=== PATIENT | female | born 1970 | race Native Hawaiian/Other Pacific Islander ===

== ENCOUNTER → 2020-08-24 11:40 | Outpatient (BNVA) | payer OTHER, SELFPAY | PROVIDERS: PCP Internal Medicine; Visit Provider Physician Assistant Medical | DX: S63.653A Sprain of metacarpophalangeal joint of left middle finger, initial encounter (principal); S63.655A Sprain of metacarpophalangeal joint of left ring finger, initial encounter; X50.1XXA Overexertion from prolonged static or awkward postures, initial encounter | CPT/HCPCS: 73130; 99202 ==

== ENCOUNTER → 2020-08-31 08:15 | Outpatient (BNVA) | payer OTHER, SELFPAY | PROVIDERS: PCP Internal Medicine; Visit Provider Internal Medicine | DX: S63.653A Sprain of metacarpophalangeal joint of left middle finger, initial encounter (principal); S63.655A Sprain of metacarpophalangeal joint of left ring finger, initial encounter; X58.XXXA Exposure to other specified factors, initial encounter | CPT/HCPCS: 99214 ==

== ENCOUNTER → 2020-09-07 09:46 | Outpatient (BNVA) | payer OTHER, SELFPAY | PROVIDERS: PCP Internal Medicine; Visit Provider Internal Medicine | DX: S63.653A Sprain of metacarpophalangeal joint of left middle finger, initial encounter (principal); S63.655A Sprain of metacarpophalangeal joint of left ring finger, initial encounter; X58.XXXA Exposure to other specified factors, initial encounter | CPT/HCPCS: 99213 ==

== ENCOUNTER 2020-09-20 14:57 | Outpatient (REF) | payer OTHER, SELFPAY ==
[2020-09-20 16:27] LABS: MANUAL DIFF FLAG NO
[2020-09-20 16:42] LABS: Basophils Percent Auto 0.3 % (0-2); Eosinophils Absolute Auto 0.2 X10*3/uL (0.0-0.4); Eosinophils Percent Auto 1.9 % (0-4); Hematocrit 22.7 % (37-47); Imm Gran Abs Auto 0.06 X10*3/uL (0.00-0.03); Imm Gran Pct Auto 0.5 % (0.0-0.4); Lymphocytes Absolute Auto 3.5 X10*3/uL (1.2-4.9); Lymphocytes Percent Auto 28.6 % (20-40); Mean Corpuscular HGB Conc 30.4 g/dl (31.0-35.0); Mean Corpuscular Hemoglobin 26.1 pg (27.0-33.0); Monocytes Absolute Auto 0.8 X10*3/uL (0.1-1.2); Monocytes Percent Auto 6.6 % (2-11); Neutrophils Absolute Auto 7.6 X10*3/uL (2.0-8.3); Neutrophils Percent Auto 62.1 % (45-73); Platelet Count 383 X10*3/uL (160-400); Red Blood Count 2.64 X10*6/uL (4.20-5.50); Red Cell Distribution Width 14.8 % (11.0-16.0)
[2020-09-20 16:45] LABS: White Blood Count 12.2 X10*3/uL (4.8-10.8)
[2020-09-21 08:47] LABS: Hemoglobin 6.9 g/dl (12.0-16.0)
== END 2020-09-20 14:58 | disposition home or self-care (01) ==
LOC: HO.HMGCLDS 14:57
PROVIDERS: PCP Internal Medicine; Visit Provider Internal Medicine
DX: N92.0 Excessive and frequent menstruation with regular cycle (principal)
CPT/HCPCS: 36415; 85025

== ENCOUNTER 2020-09-20 17:21 | Emergency (ER) | payer OTHER, SELFPAY ==
[2020-09-20] VITALS (10 sets, daily range): BP systolic 99–142; BP diastolic 64–91; PULSE 80–105; RESP 16–18; TEMP 36.8–37.1; O2SAT 98–100; BMI 29.9
--- NOTE | 2020-09-20 20:05 | ED.RECABL ---
HPI - Recheck/Abnormal Lab/Rx General Chief Complaint: Recheck/Abnormal Lab/Rx <Kaila Love NP - Last Filed: 09/20/20 21:19> Stated Complaint: Abnormal labs <Kaila Love NP - Last Filed: 09/20/20 21:19> Time Seen by Provider: 09/20/20 19:31 <Kaila Love NP - Last Filed: 09/20/20 21:19> Source: patient <Kaila Love NP - Last Filed: 09/20/20 21:19> Mode of arrival: ambulatory <Kaila Love NP - Last Filed: 09/20/20 21:19> Limitations: no limitations <Kaila Love NP - Last Filed: 09/20/20 21:19> History of Present Illness HPI narrative: 50-year-old female with a past medical history of GERD, migraines, anxiety, asthma here with vaginal bleeding. The patient tells me that she has had vaginal bleeding for 5 weeks. She is changing her pads every 1-2 hours and has heavy bleeding with clots at times. No abdominal pain. She is not sexually active. She was having normal menses still february of this year and then since then has had irregular bleeding. She is not on any OCPs. She has no history of heavy bleeding. Her last Pap smear was >5 years ago and patient believes it was normal. she denies any abdominal pain, vomiting, urinary symptoms. She is complaining of feeling weak and dizzy. She had outpatient labs done by her primary care doctor this morning and was called and told to go to the emergency department for hemoglobin of 6.9. <Kaila Love NP - Last Filed: 09/20/20 21:19> MD complaint: abnormal lab <Kaila Love NP - Last Filed: 09/20/20 21:19> Returns today for: called because of abnormal lab/test <Kaila Love NP - Last Filed: 09/20/20 21:19> Symptoms since prior visit: no new symptoms <Kaila Love NP - Last Filed: 09/20/20 21:19> Context: called for abnormal lab result <Kaila Love NP - Last Filed: 09/20/20 21:19> Associated symptoms: other (weakness, dizziness ) <Kaila Love NP - Last Filed: 09/20/20 21:19> Related Data Home Medications: Home Medications Medication Instructions Recorded Confirmed sumatriptan succinate 50 mg tablet mg PO 08/10/20 08/10/20 Previous Rx's Medication Instructions Recorded topiramate 50 mg tablet 50 mg PO DAILY #30 tab 07/26/20 albuterol sulfate 90 mcg/actuation 2 inh INHALATION Q4-6H PRN 30 Days 08/11/20 aerosol inhaler #18 g budesonide-formoterol HFA 160 2 puff PO BID 30 Days #1 units 08/11/20 mcg-4.5 mcg/actuation aerosol inhaler omeprazole 20 mg capsule,delayed 20 mg PO DAILY 90 Days #90 cap 08/11/20 release fluoxetine 10 mg capsule 10 mg PO DAILY 90 Days #90 cap 08/17/20 ondansetron HCl 8 mg tablet 8 mg PO ONCE PRN 30 Days #30 tab 08/17/20 fluticasone propionate 50 1 spray INTRANASAL BID 30 Days 08/23/20 mcg/actuation nasal #15.8 ml spray,suspension ipratropium 0.5 mg-albuterol 3 mg 3 ml INHALATION Q6-8H PRN 30 Days 08/23/20 (2.5 mg base)/3 mL nebulization #90 ml soln tranexamic acid [Lysteda] 1,300 mg PO TID PRN #30 tab 09/21/20 <Kaila Love NP - Last Filed: 09/20/20 21:19> Allergies/Adverse Reactions: Allergies Allergy/AdvReac Type Severity Reaction Status Date / Time seafood Allergy Unknown hives, Verified 09/21/20 01:37 throat feels like it is closing ibuprofen [IBUPROFEN] AdvReac Unknown HEARTBURN Verified 09/21/20 01:37 <Kaila Love NP - Last Filed: 09/20/20 21:19> Review of Systems Review of Systems: Yes all other systems are reviewed and are negative <Kaila Love NP - Last Filed: 09/20/20 21:19> Constitutional: Constitutional: Reports no additional constitutional complaints, Denies body ache(s), Denies chills, Denies fever(s), Denies headache(s) and Reports weakness <Kaila Love NP - Last Filed: 09/20/20 21:19> Eyes: Eyes: Reports no additional eye complaints and Denies change in vision <Kaila Love BUTCHER HEAD - Last Filed: 09/20/20 21:19> ENT: Reports system reviewed and no additional complaints, except as documented, Reports dizziness, Denies headache(s), Denies nasal congestion, Denies nasal discharge and Denies neck pain <Kaila Love [employer] HEAD - Last Filed: 09/20/20 21:19> Cardiovascular: Cardiovascular: Reports no additional cardiovascular complaints, Denies chest pain, Denies leg edema and Denies dyspnea <Kaila Love [employer]CH[employer] HEAD - Last Filed: 09/20/20 21:19> Respiratory: Respiratory: Reports no additional respiratory complaints, Denies cough and Denies dyspnea <Kaila Love [employer] HEAD - Last Filed: 09/20/20 21:19> Gastrointestinal: Gastrointestinal: Reports no additional gastrointestinal complaints, Denies abdominal pain, Denies diarrhea, Denies nausea and Denies vomiting <Kaila Love [employer]CHER HEAD - Last Filed: 09/20/20 21:19> Genitourinary: Genitourinary: Reports no additional female genitourinary complaints, Reports abnormal vaginal bleeding and Denies urinary incontinence <Kaila Love BUTCHER HEAD - Last Filed: 09/20/20 21:19> Musculoskeletal: Musculoskeletal: Reports no additional musculoskeletal complaints, Denies back pain, Denies arthralgias, Denies joint swelling, Denies neck pain, Denies numbness and Denies tingling <Kaila Love BUTCHER HEAD - Last Filed: 09/20/20 21:19> Integumentary/Breasts: Skin/Breast: Reports system reviewed and no additional complaints, except as docu and Denies rash <Kaila Love BUTCHER HEAD - Last Filed: 09/20/20 21:19> Neurologic: Reports system reviewed and no additional complaints, except as documented, Denies Abnormal speech present, Reports dizziness, Denies headache(s), Denies numbness, Denies tingling and Reports weakness <Kaila Love NP - Last Filed: 09/20/20 21:19> [facility] Past Medical History Attestation statement: The following information was validated with the patient. <Kaila Love NP - Last Filed: 09/20/20 21:19> Source: old records reviewed and nursing notes reviewed <Kaila Love NP - Last Filed: 09/20/20 21:19> Medical History: Medical History Anxiety, generalized Asthma Chronic GERD Heavy menses Migraine headache <Kaila Love NP - Last Filed: 09/20/20 21:19> Surgical History: Surgical History No pertinent past surgical history <Kaila Love NP - Last Filed: 09/20/20 21:19> Family History Family History: Family History Father No problems noted. Mother Arthritis Asthma Diabetes mellitus HTN (hypertension) Son No problems noted. Sister No problems noted. Sister No problems noted. Sister No problems noted. Brother No problems noted. Brother No problems noted. Brother No problems noted. Brother No problems noted. <Kaila Love NP - Last Filed: 09/20/20 21:19> Social History Social History: Social History Advance Directives: No Advance Directives Information Provided: Yes <Kaila Love NP - Last Filed: 09/20/20 21:19> Physical Exam Vital Signs: Vital Signs: Last Vital Signs Temp 98.2 F 09/21/20 01:17 Pulse 78 09/21/20 02:14 Resp 17 09/21/20 02:14 BP 125/102 H 09/21/20 02:14 Pulse Ox 100 09/21/20 02:14 Body Mass Index 29.9 <Kaila Love NP - Last Filed: 09/20/20 21:19> Vital Signs: Last Vital Signs Temp 98.2 F 09/21/20 01:17 Pulse 78 09/21/20 02:14 Resp 17 09/21/20 02:14 BP 125/102 H 09/21/20 02:14 Pulse Ox 100 09/21/20 02:14 Body Mass Index 29.9 <Bonnie Boone MD - Last Filed: 09/21/20 03:29> Const: General: cooperative, healthy appearing, comfortable and no acute distress <Kaila Love NP - Last Filed: 09/20/20 21:19> Orientation/consciousness: patient oriented x3 <Kaila Love NP - Last Filed: 09/20/20 21:19> Limitations: no limitations <Kaila Love NP - Last Filed: 09/20/20 21:19> HENMT: Head: Yes normal to inspection <Kaila Love NP - Last Filed: 09/20/20 21:19> Ears: hearing grossly normal bilaterally <Kaila Love NP - Last Filed: 09/20/20 21:19> General nose exam: Normal external nose present <Kaila Love NP - Last Filed: 09/20/20 21:19> Face and sinus: Yes normal facial exam <Kaila Love NP - Last Filed: 09/20/20 21:19> Mouth: Normal oral and palatal mucosa present <Kaila Love NP - Last Filed: 09/20/20 21:19> Throat: Yes posterior oropharynx normal <Kaila Love NP - Last Filed: 09/20/20 21:19> Eyes: General: appearance normal, both eyes and all related structures <Kaila Love NP - Last Filed: 09/20/20 21:19> Conjunctivae: conjunctival abnormal ( Pale) <Kaila Love NP - Last Filed: 09/20/20 21:19> Pupils: Equal, round and reactive pupils present <Kaila Love NP - Last Filed: 09/20/20 21:19> Neck: Neck: Yes normal visual inspection <Kaila Love NP - Last Filed: 09/20/20 21:19> Chest: Chest palpation & inspection: normal inspection of the chest <Kaila Love NP - Last Filed: 09/20/20 21:19> Resp: Effort & Inspection: normal respiratory effort <Kaila Love NP - Last Filed: 09/20/20 21:19> Auscultation: clear to auscultation bilaterally <Kaila Love NP - Last Filed: 09/20/20 21:19> Cardio: Rate: regular rate <Kaila Love NP - Last Filed: 09/20/20 21:19> Rhythm: regular rhythm <Kaila Love NP - Last Filed: 09/20/20 21:19> Peripheral pulses: Peripheral pulses 2+ throughout <Kaila Love NP - Last Filed: 09/20/20 21:19> GI: Inspection: Yes normal to inspection <Kaila Love NP - Last Filed: 09/20/20 21:19> Palpation (GI): Soft to palpation and nontender <Kaila Love NP - Last Filed: 09/20/20 21:19> Auscultation: normal bowel sounds <Kaila Love NP - Last Filed: 09/20/20 21:19> : Other: [facility] tech present <Kaila Love NP - Last Filed: 09/20/20 21:19> External Female Exam: normal external appearance <Kaila Love NP - Last Filed: 09/20/20 21:19> Speculum Exam - Vagina: normal appearance of the vagina, no cysts, vaginal bleeding (moderate-no clots ), No tissue present in vagina, no masses and no swelling <Kaila Love NP - Last Filed: 09/20/20 21:19> Speculum Exam - Cervix: normal appearance of the cervix, no lesions and no masses <Kaila Love NP - Last Filed: 09/20/20 21:19> OB/external & speculum: vaginal bleeding (moderate-no clots ); no tissue noted in vagina <Kaila Love NP - Last Filed: 09/20/20 21:19> Back/Spine/Pelvis: Thoracic/Lumbar Spine: thoracic and lumbar spine normal to inspection <Kaila Love NP - Last Filed: 09/20/20 21:19> Skin: General skin exam: no rashes or lesions noted <Kaila Love BUTCHER HEAD - Last Filed: 09/20/20 21:19> Neuro: General: patient oriented x3, no focal motor deficits and normal sensation to monofilament <Kaila Love BUTCHER HEAD - Last Filed: 09/20/20 21:19> Cranial nerves: Yes Equal, round and reactive pupils present <Kaila Love NP - Last Filed: 09/20/20 21:19> Cognition (Neuro): normal cognition <Kaila Love NP - Last Filed: 09/20/20 21:19> Speech: No Abnormal speech present <Kaila Love NP - Last Filed: 09/20/20 21:19> Gait exam (Neuro): Normal gait present <Kaila Love NP - Last Filed: 09/20/20 21:19> Motor exam (neuro): 5/5 motor strength present throughout <Kaila Love NP - Last Filed: 09/20/20 21:19> Extrem: General: Yes normal to inspection <Kaila Love NP - Last Filed: 09/20/20 21:19> Course Course Course Narrative: 50-year-old female here with low hemoglobin in the setting of heavy vaginal bleeding for the last 5 weeks. Will plan to check labs again, send type and screen, consent patient for blood and order 1 unit of PRBCs, pelvic exam and pelvic ultrasound. 1999-consented for blood. 2 units PRBC ordered. 2100- pelvic exam shows a moderate to large amount of blood in the vaginal canal with no clots. The patient hemoglobin of 6.7 here. Her hemoglobin this morning was 6.9. Additional labs are pending. The patient has an ultrasound which is pending. Orthostatics are pending. Patient will be signed out to oncoming provider. Discussed patient with Dr. Parekh from [facility] who recommended starting patient on Lysteda 650mg TID up to 5 days, f/u 1-2 days for endometrial biopsy, close monitoring here in ED for worsening bleeding. Sign out to Dr Boone pending above. <Kaila Love NP - Last Filed: 09/20/20 21:19> I received sign-out from [facility], patient received 2 units of packed red blood cells. I discussed with Dr. Parekh if IV Premarin should be attempted, however due to the patient's ultrasound findings and endometrial thickening, at this time it is not indicated. Hemoglobin and hematocrit improved to 8.5 and 27 respectively. Patient states that she feels much better, no longer feeling dizzy. On cervical exam, patient has moderate amount of blood in the vaginal vault, however, there is no active bleeding from the cervix. Patient states the amount of bleeding that she is having, has been about the same for the last 1.5 months, no worsening bleeding. I discussed the patient with Dr. Parekh patient will be sent home with a prescription of Lysteda and have close follow-up with him in his office. I discussed the plan with the patient and agrees. Also discussed with the patient signs and symptoms of when to return to the emergency room. <Bnonie Boone MD - Last Filed: 09/21/20 03:29> MDM - Recheck/Abnormal Lab/Rx MDM Narrative Medical decision making narrative: dysfunctional uterine bleeding, Uterine fibroid, JAIME <Kaila Love NP - Last Filed: 09/20/20 21:19> Medical Records Attestation: I reviewed the patient's medical records. <Kaila Love NP - Last Filed: 09/20/20 21:19> Lab Data Attestation: I reviewed the patient's lab results. <Kaila Love NP - Last Filed: 09/20/20 21:19> Result diagrams: : 09/21/20 02:14 09/20/20 19:58 <Kaila Love NP - Last Filed: 09/20/20 21:19> Labs: Lab Results 09/20/20 09/20/20 09/20/20 Range/Units 19:54 19:58 19:58 WBC 13.2 H (4.8-10.8) X10*3/uL RBC 2.58 L (4.20-5.50) X10*6/uL Hgb 6.7 L* (12.0-16.0) g/dl Hct 22.1 L (37-47) % MCV 85.7 (80-98) fL MCH 26.0 L (27.0-33.0) pg MCHC 30.3 L (31.0-35.0) g/dl RDW 15.0 (11.0-16.0) % Plt Count 370 (160-400) X10*3/uL MPV 9.4 (9.4-12.3) fL Immature Gran % (Auto) 0.3 (0.0-0.4) % Neut % (Auto) 66.9 (45-73) % Lymph % (Auto) 25.1 (20-40) % [place] % (Auto) 5.9 (2-11) % Eos % (Auto) 1.4 (0-4) % Baso % (Auto) 0.4 (0-2) % Lymph # (Auto) 3.3 (1.2-4.9) X10*3/uL [place] # (Auto) 0.8 (0.1-1.2) X10*3/uL Eos # (Auto) 0.2 (0.0-0.4) X10*3/uL Baso # (Auto) 0.1 (0.0-0.2) X10*3/uL Abs Immat Gran (auto) 0.04 H (0.00-0.03) X10*3/uL Absolute Neuts (auto) 8.8 H (2.0-8.3) X10*3/uL Absolute Nucleated RBC 0.000 (0.0-0.012) X10*3/uL Nucleated RBC % (auto) 0.0 (0.0-0.2) /100WBC Hold Blue Top SEE NOTE Sodium 138 (135-145) mmol/L Potassium 4.0 (3.3-5.1) mmol/l Chloride 107 (96-108) mmol/L Carbon Dioxide 22 (22-29) mmol/L Anion Gap 13 (12-20) BUN 13 (9-16) mg/dL Creatinine 0.68 (0.5-1.4) mg/dL Estim Creat Clear Calc 104.5 Estimated GFR > 60 Random Glucose 98 (60-115) mg/dL Calcium 8.5 (8.4-10.2) mg/dL Total Bilirubin < 0.2 (0.0-1.0) mg/dL Direct Bilirubin < 0.2 (0.0-0.5) mg/dL AST 34 H (5-31) U/L ALT 16 (0-31) U/L Alkaline Phosphatase 64 (39-117) U/L Total Protein 6.2 L (6.5-8.0) g/dL Albumin 3.6 (3.5-5.0) g/dL Urine Color Urine Appearance Urine pH (5.0-8.0) Ur Specific [place] (1.005-1.025) Urine Protein (NEG-TRACE) MG/DL Urine Glucose (UA) (NEG) MG/DL Urine Ketones (NEG) MG/DL Urine Blood (NEG) Urine Nitrite (NEG) Ur Leukocyte Esterase (NEG) Urine RBC (0) /HPF Urine WBC (0-4) /HPF Ur Squamous Epith Cells /LPF Urine Bacteria /LPF Urine Test (NEGATIVE) Blood Type Antibody Screen Crossmatch 09/20/20 09/20/20 09/21/20 Range/Units 19:58 19:58 02:14 WBC (4.8-10.8) X10*3/uL RBC (4.20-5.50) X10*6/uL Hgb 8.5 L D (12.0-16.0) g/dl Hct 27.0 L D (37-47) % MCV (80-98) fL MCH (27.0-33.0) pg MCHC (31.0-35.0) g/dl RDW (11.0-16.0) % Plt Count (160-400) X10*3/uL MPV (9.4-12.3) fL Immature Gran % (Auto) (0.0-0.4) % Neut % (Auto) (45-73) % Lymph % (Auto) (20-40) % [place] % (Auto) (2-11) % Eos % (Auto) (0-4) % Baso % (Auto) (0-2) % Lymph # (Auto) (1.2-4.9) X10*3/uL [place] # (Auto) (0.1-1.2) X10*3/uL Eos # (Auto) (0.0-0.4) X10*3/uL Baso # (Auto) (0.0-0.2) X10*3/uL Abs Immat Gran (auto) (0.00-0.03) X10*3/uL Absolute Neuts (auto) (2.0-8.3) X10*3/uL Absolute Nucleated RBC (0.0-0.012) X10*3/uL Nucleated RBC % (auto) (0.0-0.2) /100WBC Hold Blue Top Sodium (135-145) mmol/L Potassium (3.3-5.1) mmol/l Chloride (96-108) mmol/L Carbon Dioxide (22-29) mmol/L Anion Gap (12-20) BUN (9-16) mg/dL Creatinine (0.5-1.4) mg/dL Estim Creat Clear Calc Estimated GFR Random Glucose (60-115) mg/dL Calcium (8.4-10.2) mg/dL Total Bilirubin (0.0-1.0) mg/dL Direct Bilirubin (0.0-0.5) mg/dL AST (5-31) U/L ALT (0-31) U/L Alkaline Phosphatase (39-117) U/L Total Protein (6.5-8.0) g/dL Albumin (3.5-5.0) g/dL Urine Color YELLOW Urine Appearance CLEAR Urine pH 5.5 (5.0-8.0) Ur Specific [place] >= 1.030 H (1.005-1.025) Urine Protein NEG (NEG-TRACE) MG/DL Urine Glucose (UA) NEG (NEG) MG/DL Urine Ketones NEG (NEG) MG/DL Urine Blood 3+ H (NEG) Urine Nitrite NEG (NEG) Ur Leukocyte Esterase NEG (NEG) Urine RBC 30-49 H (0) /HPF Urine WBC 0-2 (0-4) /HPF Ur Squamous Epith Cells 1+ /LPF Urine Bacteria NONE /LPF Urine Test NEGATIVE (NEGATIVE) Blood Type A Positive Antibody Screen NEGATIVE Crossmatch See Detail <Kaila Love, BUTCHER HEAD - Last Filed: 09/20/20 21:19> Lab Results 09/20/20 09/20/20 09/20/20 Range/Units 19:54 19:58 19:58 WBC 13.2 H (4.8-10.8) X10*3/uL RBC 2.58 L (4.20-5.50) X10*6/uL Hgb 6.7 L* (12.0-16.0) g/dl Hct 22.1 L (37-47) % MCV 85.7 (80-98) fL MCH 26.0 L (27.0-33.0) pg MCHC 30.3 L (31.0-35.0) g/dl RDW 15.0 (11.0-16.0) % Plt Count 370 (160-400) X10*3/uL MPV 9.4 (9.4-12.3) fL Immature Gran % (Auto) 0.3 (0.0-0.4) % Neut % (Auto) 66.9 (45-73) % Lymph % (Auto) 25.1 (20-40) % [place] % (Auto) 5.9 (2-11) % Eos % (Auto) 1.4 (0-4) % Baso % (Auto) 0.4 (0-2) % Lymph # (Auto) 3.3 (1.2-4.9) X10*3/uL [place] # (Auto) 0.8 (0.1-1.2) X10*3/uL Eos # (Auto) 0.2 (0.0-0.4) X10*3/uL Baso # (Auto) 0.1 (0.0-0.2) X10*3/uL Abs Immat Gran (auto) 0.04 H (0.00-0.03) X10*3/uL Absolute Neuts (auto) 8.8 H (2.0-8.3) X10*3/uL Absolute Nucleated RBC 0.000 (0.0-0.012) X10*3/uL Nucleated RBC % (auto) 0.0 (0.0-0.2) /100WBC Hold Blue Top SEE NOTE Sodium 138 (135-145) mmol/L Potassium 4.0 (3.3-5.1) mmol/l Chloride 107 (96-108) mmol/L Carbon Dioxide 22 (22-29) mmol/L Anion Gap 13 (12-20) BUN 13 (9-16) mg/dL Creatinine 0.68 (0.5-1.4) mg/dL Estim Creat Clear Calc 104.5 Estimated GFR > 60 Random Glucose 98 (60-115) mg/dL Calcium 8.5 (8.4-10.2) mg/dL Total Bilirubin < 0.2 (0.0-1.0) mg/dL Direct Bilirubin < 0.2 (0.0-0.5) mg/dL AST 34 H (5-31) U/L ALT 16 (0-31) U/L Alkaline Phosphatase 64 (39-117) U/L Total Protein 6.2 L (6.5-8.0) g/dL Albumin 3.6 (3.5-5.0) g/dL Urine Color Urine Appearance Urine pH (5.0-8.0) Ur Specific [place] (1.005-1.025) Urine Protein (NEG-TRACE) MG/DL Urine Glucose (UA) (NEG) MG/DL Urine Ketones (NEG) MG/DL Urine Blood (NEG) Urine Nitrite (NEG) Ur Leukocyte Esterase (NEG) Urine RBC (0) /HPF Urine WBC (0-4) /HPF Ur Squamous Epith Cells /LPF Urine Bacteria /LPF Urine Test (NEGATIVE) Blood Type Antibody Screen Crossmatch 09/20/20 09/20/20 09/21/20 Range/Units 19:58 19:58 02:14 WBC (4.8-10.8) X10*3/uL RBC (4.20-5.50) X10*6/uL Hgb 8.5 L D (12.0-16.0) g/dl Hct 27.0 L D (37-47) % MCV (80-98) fL MCH (27.0-33.0) pg MCHC (31.0-35.0) g/dl RDW (11.0-16.0) % Plt Count (160-400) X10*3/uL MPV (9.4-12.3) fL Immature Gran % (Auto) (0.0-0.4) % Neut % (Auto) (45-73) % Lymph % (Auto) (20-40) % [place] % (Auto) (2-11) % Eos % (Auto) (0-4) % Baso % (Auto) (0-2) % Lymph # (Auto) (1.2-4.9) X10*3/uL [place] # (Auto) (0.1-1.2) X10*3/uL Eos # (Auto) (0.0-0.4) X10*3/uL Baso # (Auto) (0.0-0.2) X10*3/uL Abs Immat Gran (auto) (0.00-0.03) X10*3/uL Absolute Neuts (auto) (2.0-8.3) X10*3/uL Absolute Nucleated RBC (0.0-0.012) X10*3/uL Nucleated RBC % (auto) (0.0-0.2) /100WBC Hold Blue Top Sodium (135-145) mmol/L Potassium (3.3-5.1) mmol/l Chloride (96-108) mmol/L Carbon Dioxide (22-29) mmol/L Anion Gap (12-20) BUN (9-16) mg/dL Creatinine (0.5-1.4) mg/dL Estim Creat Clear Calc Estimated GFR Random Glucose (60-115) mg/dL Calcium (8.4-10.2) mg/dL Total Bilirubin (0.0-1.0) mg/dL Direct Bilirubin (0.0-0.5) mg/dL AST (5-31) U/L ALT (0-31) U/L Alkaline Phosphatase (39-117) U/L Total Protein (6.5-8.0) g/dL Albumin (3.5-5.0) g/dL Urine Color YELLOW Urine Appearance CLEAR Urine pH 5.5 (5.0-8.0) Ur Specific [place] >= 1.030 H (1.005-1.025) Urine Protein NEG (NEG-TRACE) MG/DL Urine Glucose (UA) NEG (NEG) MG/DL Urine Ketones NEG (NEG) MG/DL Urine Blood 3+ H (NEG) Urine Nitrite NEG (NEG) Ur Leukocyte Esterase NEG (NEG) Urine RBC 30-49 H (0) /HPF Urine WBC 0-2 (0-4) /HPF Ur Squamous Epith Cells 1+ /LPF Urine Bacteria NONE /LPF Urine Test NEGATIVE (NEGATIVE) Blood Type A Positive Antibody Screen NEGATIVE Crossmatch See Detail <Bonnie Boone MD - Last Filed: 09/21/20 03:29> Imaging Data Pelvic ultrasound: Radiologist's impression: An anteverted anteflexed uterus is present measuring 9.8 x 5.4 x 7.9 cm. Endometrial thickness is 1.2 cm. The endometrium is heterogeneous and small cystic areas are present in the uterine wall adjacent to the endometrium. No uterine fibroids are seen. Multiple nabothian cysts are present. The right ovary measures 3.7 x 3.2 x 3.1 cm for a volume of 19.2 mL and includes a 4.6 x 2.4 x 2.7 cm cyst with a single septation. The left ovary measures 3.2 x 1.6 x 1.2 cm for a volume of 3.2 mL and appears unremarkable. No free fluid is present in the cul-de-sac US/US transvaginal IMPRESSION: 1. No uterine fibroids are present. 2. 4.6 cm right ovarian cyst with a single thin septation. 3. Heterogeneous endometrium with some small cystic areas adjacent to it in the myometrium. Adenomyosis could have such an appearance. MRI may be useful for further evaluation should this be a consideration. <Bonnie Boone MD - Last Filed: 09/21/20 03:29> Critical Care Time Critical Care Time Total Critical Care Time: 60 <Bonnie Boone MD - Last Filed: 09/21/20 03:29> Discharge Plan Discharge Clinical Impression: DUB (dysfunctional uterine bleeding), Anemia <Kaila Love NP - Last Filed: 09/20/20 21:19> Patient Disposition: Home, Self-Care <Kaila Love NP - Last Filed: 09/20/20 21:19> Instructions: Dysfunctional Uterine Bleeding (ED) <Kaila Love NP - Last Filed: 09/20/20 21:19> Additional Instructions: if you have any worsening symptoms, worsening bleeding, any new symptoms, please return to the emergency room. Please follow-up with your primary care physician And with OBGYN tomorrow. If you have any worsening or new symptoms, please return to the emergency room or call 911 <Kaila Love NP - Last Filed: 09/20/20 21:19> Prescriptions: New tranexamic acid [Lysteda] 650 mg tablet 1,300 mg PO TID PRN (Reason: bleeding) Qty: 30 RF: 0 No Action topiramate 50 mg tablet 50 mg PO DAILY Qty: 30 RF: 2 albuterol sulfate 90 mcg/actuation HFA aerosol inhaler 2 inh inhalation Q4-6H PRN (Reason: bronchospasm) 30 Days Qty: 18 RF: 3 budesonide-formoterol 160-4.5 mcg/actuation HFA aerosol inhaler 2 puff PO BID 30 Days Qty: 1 RF: 2 omeprazole 20 mg capsule,delayed release(DR/EC) 20 mg PO DAILY 90 Days Qty: 90 RF: 0 ondansetron HCl 8 mg tablet 8 mg PO ONCE PRN (Reason: nausea and vomiting) 30 Days Qty: 30 RF: 3 fluoxetine 10 mg capsule 10 mg PO DAILY 90 Days Qty: 90 RF: 0 fluticasone propionate 50 mcg/actuation spray,suspension 1 spray intranasal BID 30 Days Qty: 15.8 RF: 5 ipratropium-albuterol 0.5 mg-3 mg(2.5 mg base)/3 mL solution for nebulization 3 ml inhalation Q6-8H PRN (Reason: wheezing) 30 Days Qty: 90 RF: 0 sumatriptan succinate 50 mg tablet PO RF: 0 <Kaila Love NP - Last Filed: 09/20/20 21:19> Referrals: Bertin Parekh MD [Physician] - 09/21/20 9:00 am <Kaila Love NP - Last Filed: 09/20/20 21:19> Stand Alone Forms: Work/School Release <Kaila Love NP - Last Filed: 09/20/20 21:19>
[2020-09-20 20:11] LABS: Basophils Absolute Auto 0.1 X10*3/uL (0.0-0.2); Basophils Percent Auto 0.4 % (0-2); Eosinophils Absolute Auto 0.2 X10*3/uL (0.0-0.4); Eosinophils Percent Auto 1.4 % (0-4); Hematocrit 22.1 % (37-47); Imm Gran Abs Auto 0.04 X10*3/uL (0.00-0.03); Imm Gran Pct Auto 0.3 % (0.0-0.4); Lymphocytes Absolute Auto 3.3 X10*3/uL (1.2-4.9); Lymphocytes Percent Auto 25.1 % (20-40); Mean Corpuscular HGB Conc 30.3 g/dl (31.0-35.0); Mean Corpuscular Volume 85.7 fL (80-98); Mean Platelet Volume 9.4 fL (9.4-12.3); Monocytes Absolute Auto 0.8 X10*3/uL (0.1-1.2); Monocytes Percent Auto 5.9 % (2-11); Neutrophils Absolute Auto 8.8 X10*3/uL (2.0-8.3); Neutrophils Percent Auto 66.9 % (45-73); Platelet Count 370 X10*3/uL (160-400); Red Blood Count 2.58 X10*6/uL (4.20-5.50); White Blood Count 13.2 X10*3/uL (4.8-10.8)
--- NOTE | 2020-09-20 20:12 | US_ITS ---
EXAMINATION: PELVIC ULTRASOUND CLINICAL INFORMATION: Heavy vaginal bleeding COMPARISON: None TECHNIQUE: Both transabdominal endovaginal scanning was performed. FINDINGS: An anteverted anteflexed uterus is present measuring 9.8 x 5.4 x 7.9 cm. Endometrial thickness is 1.2 cm. The endometrium is heterogeneous and small cystic areas are present in the uterine wall adjacent to the endometrium. No uterine fibroids are seen. Multiple nabothian cysts are present. The right ovary measures 3.7 x 3.2 x 3.1 cm for a volume of 19.2 mL and includes a 4.6 x 2.4 x 2.7 cm cyst with a single septation. The left ovary measures 3.2 x 1.6 x 1.2 cm for a volume of 3.2 mL and appears unremarkable. No free fluid is present in the cul-de-sac US/US pelvic complete IMPRESSION: 1. No uterine fibroids are present. 2. 4.6 cm right ovarian cyst with a single thin septation. 3. Heterogeneous endometrium with some small cystic areas adjacent to it in the myometrium. Adenomyosis could have such an appearance. MRI may be useful for further evaluation should this be a consideration.
[2020-09-20 20:13] LABS: MANUAL DIFF FLAG NO
[2020-09-20 20:16] LABS: Glucose Urine UA NEG (NEG); Leukocyte Esterase Urine NEG (NEG); Nitrite Urine NEG (NEG); PH 5.5 (5.0-8.0); Specific Gravity - Urine >= 1.030 (1.005-1.025); Urine Blood 3+ (NEG); Urine Ketones NEG (NEG); Urine Protein NEG (NEG-TRACE)
[2020-09-20 20:19] LABS: Hemoglobin 6.7 g/dl (12.0-16.0)
--- NOTE | 2020-09-20 20:19 | US_ITS ---
EXAMINATION: PELVIC ULTRASOUND CLINICAL INFORMATION: Heavy vaginal bleeding COMPARISON: None TECHNIQUE: Both transabdominal endovaginal scanning was performed. FINDINGS: An anteverted anteflexed uterus is present measuring 9.8 x 5.4 x 7.9 cm. Endometrial thickness is 1.2 cm. The endometrium is heterogeneous and small cystic areas are present in the uterine wall adjacent to the endometrium. No uterine fibroids are seen. Multiple nabothian cysts are present. The right ovary measures 3.7 x 3.2 x 3.1 cm for a volume of 19.2 mL and includes a 4.6 x 2.4 x 2.7 cm cyst with a single septation. The left ovary measures 3.2 x 1.6 x 1.2 cm for a volume of 3.2 mL and appears unremarkable. No free fluid is present in the cul-de-sac US/US transvaginal IMPRESSION: 1. No uterine fibroids are present. 2. 4.6 cm right ovarian cyst with a single thin septation. 3. Heterogeneous endometrium with some small cystic areas adjacent to it in the myometrium. Adenomyosis could have such an appearance. MRI may be useful for further evaluation should this be a consideration.
[2020-09-20 20:20] LABS: Appearance Urine CLEAR; Color Urine YELLOW
[2020-09-20 20:26] LABS: RBC Urine 30-49 /HPF (0); Squamous Epithelial Cell Urine 1+ /LPF; WBC Urine 0-2 /HPF (0-4)
--- NOTE | 2020-09-20 20:59 | PC.NURSE ---
RETURNED FROM US.
[2020-09-20 21:14] LABS: Alanine Aminotransferase 16 U/L (0-31); Albumin Level 3.6 g/dL (3.5-5.0); Alkaline Phosphatase 64 U/L (39-117); Anion Gap 13 (12-20); Aspartate Amino Transferase 34 U/L (5-31); Bilirubin Direct < 0.2 mg/dL (0.0-0.5); Bilirubin Total < 0.2 mg/dL (0.0-1.0); Blood Urea Nitrogen 13 mg/dL (9-16); Calcium 8.5 mg/dL (8.4-10.2); Carbon Dioxide 22 mmol/L (22-29); Chloride 107 mmol/L (96-108); Creatinine Clr Calc Pharmacy 104.5; Estimated Glomerular Filt Rate > 60; Glucose Random 98 mg/dL (60-115); Sodium 138 mmol/L (135-145); Total Protein 6.2 g/dL (6.5-8.0)
--- NOTE | 2020-09-20 21:16 | PM.GYNCN ---
[employer] - CN: HPI Data of Consult Consult date: 09/20/20 Primary Care Provider: Cyndi Carter MD Consult Narrative Narrative: I was called by Kate Bright NP re: Nikia Gonzalez is a 50 year old female who has the 5 week history of vaginal bleeding. Patient presented to her primary care physician with some dizziness and f atigue, a CBC was done during the day and hemoglobin came back at 6.9 so the patient was called in to the emergency room. No additional complaints Repeat hemoglobin in the emergency room came back at 6.7 the patient is not currently actively bleeding. test is negative ultrasound showed a thickened heterogenous endometrium with cystic areas measuring 1.2 cm and a right complex 4.6 cm ovarian cyst, 2 units of a packed RBCs will be transfused cc:: CC: Meds Allergies Allergy/AdvReac Type Severity Reaction Status Date / Time seafood Allergy Unknown hives, Verified 08/05/20 15:16 throat feels like it is closing ibuprofen [IBUPROFEN] AdvReac Unknown HEARTBURN Unverified 07/01/20 16:40 Home Medications Medication Instructions Recorded Confirmed Type sumatriptan succinate 50 mg tablet mg PO 08/10/20 08/10/20 History [employer] - Results Labs CBC & Chem 7: 09/20/20 19:58 09/20/20 19:58 Labs: Short CBC 09/20/20 Range/Units 19:58 WBC 13.2 H (4.8-10.8) X10*3/uL Hgb 6.7 L* (12.0-16.0) g/dl Hct 22.1 L (37-47) % Plt Count 370 (160-400) X10*3/uL BMP 09/20/20 19:58 Sodium 138 Potassium 4.0 Chloride 107 Carbon Dioxide 22 BUN 13 Creatinine 0.68 Calcium 8.5 Liver Function 09/20/20 Range/Units 19:58 Total Bilirubin < 0.2 (0.0-1.0) mg/dL Direct Bilirubin < 0.2 (0.0-0.5) mg/dL AST 34 H (5-31) U/L ALT 16 (0-31) U/L Alkaline Phosphatase 64 (39-117) U/L Albumin 3.6 (3.5-5.0) g/dL Urine 09/20/20 Range/Units 19:58 Urine Color YELLOW Urine Appearance CLEAR Urine pH 5.5 (5.0-8.0) Ur Specific Harvel >= 1.030 H (1.005-1.025) Urine Protein NEG (NEG-TRACE) MG/DL Urine Glucose (UA) NEG (NEG) MG/DL Antibody Screen Antibody Screen NEGATIVE 09/20/20 19:58 Assessment and Plan (1) Heavy menses: Status: Acute Discussed with Kaila Love NP the following plan: Since there is no evidence of active vaginal bleeding and the pt has a history of 5 week of vaginal bleeding, Recommended to transfuse with 2 units of packed RBCs and and if the vaginal bleeding is not active and patient is stable, discharge the pt on Lysteda 1300 mg p.o. t.i.d. for 3-5 days, follow up in our office within 1-2 days for endometrial biopsy if negative will schedule urgent endometrial ablation. Instruction to be given to the patient to come back or call if heavy vaginal bleeding recur. (2) Complex ovarian cyst: Status: Acute Right complex ovarian cyst to be followed up in the office for further management and discussion with the patient options of treatment including but not limited to expectant management versus laparoscopic ovarian cystectomy/oophorectomy on outpatient after initial CA 125
[2020-09-20 21:33] LABS: UPreg QC Valid YES; Urine Pregnancy NEGATIVE (NEGATIVE)
[2020-09-20] MEDS: Acetaminophen 325 MG TABLET 650 MG PO (22:20)
--- NOTE | 2020-09-20 22:28 | PC.NURSE ---
Pt medicated for 8/10 lower abd cramping, first unit of rbc infusing per TAR, plan for second unit, then repeat h/h per Dr. Boone- pt aware and agreeable.
--- NOTE | 2020-09-20 22:57 | PC.NURSE ---
SON CALLING FOR UPDATE. PER PATIENT OK TO GIVE UPDATE.
[2020-09-21 00:08] VITALS: BP 120/63; PULSE 80; RESP 16; O2SAT 100
[2020-09-21 01:17] VITALS: BP 105/61; PULSE 96; RESP 100; TEMP 36.8
[2020-09-21] MEDS: diphenhydrAMINE HCL 50 MG/ML VIAL IVPUSH (01:21)
[2020-09-21] MEDS: Acetaminophen 325 MG TABLET 650 MG PO (01:22)
--- NOTE | 2020-09-21 01:27 | PC.NURSE ---
AT THE END OF TRANSFUSING THE SECOND UNIT. PATIENT SCRATCHING UP HER ARM ABOVE IV. NO SIGNS OF INFILTRATION. SPOKE WITH DR MEEKS. GIVEN BENADRYL IV AND TYELNOL PO. OK TO GIVE SECOND DOSE OF TYELNOL PER DR MEEKS. NO HIVES PRESENT ON PATIENT AT THIS TIME. ITCHING ALL OVER HER BODY. LUNGS CLEAR TO AUSCULATION AT THIS TIME.
--- NOTE | 2020-09-21 01:36 | PC.NURSE ---
PATIENT NOW REPORTS FEELING SOB, LIKE I'M HAVING AN ASTHMA ATTACK. REQUESTING HER INHALER. DR MEEKS CALLED TO BEDSIDE.
[2020-09-21 02:14] VITALS: BP 125/102; PULSE 78; RESP 17; O2SAT 100
[2020-09-21 02:18] LABS: Hemoglobin 8.5 g/dl (12.0-16.0)
--- NOTE | 2020-09-21 02:18 | PC.NURSE ---
SPOKE WITH DR MEEKS REGARDING CONTINUED ITCHING AND ONE RED BUMP NOTED ON BACK. WILL GIVE SOLUMEDROL AND PEPCID.
[2020-09-21] MEDS: Famotidine/PF 20 MG/2 ML VIAL IVPUSH (02:33)
[2020-09-21] MEDS: methylPREDNISolone Sod Succ/PF 125 MG/2 ML VIAL IVPUSH (02:39)
--- NOTE | 2020-09-21 03:06 | PC.NURSE ---
THIS NURSE TO BEDSIDE WITH DR MEEKS FOR PELVIC EXAM.
== END 2020-09-21 03:48 | disposition home or self-care (01) ==
PROVIDERS: Nurse Practitioner Family; Emergency Provider Emergency Medicine; PCP Internal Medicine
DX: N93.8 Other specified abnormal uterine and vaginal bleeding (principal); N83.201 Unspecified ovarian cyst, right side
CPT/HCPCS: 36415; 36430; 76830; 76856; 80048; 80076; 81001; 81025; 85014; 85018; 85025; 86850; 86900; 86901; 86920; 86923; 96374; 96375; 99283; 99284; 99285; 99291; J1200; J2930; P9016

== ENCOUNTER 2020-09-21 09:47 | Outpatient (REF) | payer OTHER, SELFPAY ==
[2020-09-22 14:18] LABS: BV Int Neg Control Negative (Negative); BV Int Pos Control Positive (Positive)
[2020-09-25 04:57] LABS: CT PCR NOT DETECTED (Not Detect.); NG PCR NOT DETECTED (Not Detect.)
[2020-09-29 16:43] LABS: HPV mRNA E6/E7 Detected (Not Detected)
== END 2020-09-21 09:48 | disposition home or self-care (01) ==
LOC: HO.LAB 09:47
PROVIDERS: Obstetrics & Gynecology; PCP Internal Medicine; Visit Provider Internal Medicine
DX: N93.9 Abnormal uterine and vaginal bleeding, unspecified (principal); S63.698A Other sprain of other finger, initial encounter
CPT/HCPCS: 87480; 87491; 87510; 87591; 87624; 87660; 88141; 88142; 88305; 99212; 99213

== ENCOUNTER → 2020-09-24 11:44 | Outpatient (BNVA) | payer OTHER, SELFPAY | PROVIDERS: Visit Provider Obstetrics & Gynecology | DX: Z76.89 Persons encountering health services in other specified circumstances (principal) ==

== ENCOUNTER 2020-10-06 09:41 | Emergency (ER) | payer OTHER, SELFPAY ==
[2020-10-06 09:45] VITALS: BP 122/73; PULSE 75; RESP 16; TEMP 36.7; O2SAT 99; BMI 29.9
--- NOTE | 2020-10-06 09:53 | ED.FEMALEGU ---
HPI - Female Genitourinary General Chief complaint: Vaginal Bleeding Stated complaint: vaginal bleeding Time Seen by Provider: 10/06/20 09:53 Source: patient Mode of arrival: ambulatory Limitations: no limitations History of Present Illness HPI Narrative: seen on 09/21 needed blood transfusion for Hgb 6.9 from uterine fibroids started on tranexamic acid 650mg TID PRN bleeding then saw her OB and started on provera 10mg daily x 10 days did better but then started bleeding 3 days ago - 5 pads overnight per notes plan for D+C with ablation in October elicited complaint: vaginal bleeding Pertinent past history: other (dysfunctional uterine bleeding) Onset (ago): day(s) (3 days ago but has been dealing with this for months) Location of symptoms: suprapubic Severity: moderate Quality of pain: cramping and dull Consistency: constant Vaginal bleeding: heavy, clots and # pads per day (5 pads overnight) Exacerbating factors: none Relieving factors: none Associated symptoms: denies other symptoms Patient : No Related Data Previous Rx's Medication Instructions Recorded albuterol sulfate 90 mcg/actuation 2 inh INHALATION Q4-6H PRN 30 Days 08/11/20 aerosol inhaler #18 g budesonide-formoterol HFA 160 2 puff PO BID 30 Days #1 units 08/11/20 mcg-4.5 mcg/actuation aerosol inhaler omeprazole 20 mg capsule,delayed 20 mg PO DAILY 90 Days #90 cap 08/11/20 release fluoxetine 10 mg capsule 10 mg PO DAILY 90 Days #90 cap 08/17/20 ondansetron HCl 8 mg tablet 8 mg PO ONCE PRN 30 Days #30 tab 08/17/20 fluticasone propionate 50 1 spray INTRANASAL BID 30 Days 08/23/20 mcg/actuation nasal #15.8 ml spray,suspension medroxyprogesterone 10 mg tablet 20 mg PO BID 7 Days #28 tab 09/21/20 tranexamic acid [Lysteda] 1,300 mg PO TID PRN #30 tab 09/21/20 ferrous sulfate 325 mg (65 mg 325 mg PO BID #60 tab 09/24/20 iron) tablet medroxyprogesterone 10 mg tablet 10 mg PO DAILY #30 tab 09/24/20 buspirone 5 mg tablet 5 mg PO BID PRN 30 Days #60 tab 10/04/20 sumatriptan succinate 50 mg tablet 50 mg PO ONCE PRN 30 Days #14 tab 10/05/20 topiramate 50 mg tablet 50 mg PO DAILY #30 tab 10/05/20 medroxyprogesterone [Provera] 10 mg PO DAILY 10 Days #10 tab 10/06/20 tranexamic acid 650 mg PO TID PRN #60 tab 10/06/20 Allergies Allergy/AdvReac Type Severity Reaction Status Date / Time seafood Allergy Unknown hives, Verified 09/24/20 11:45 throat feels like it is closing ibuprofen [IBUPROFEN] AdvReac Unknown HEARTBURN Verified 09/24/20 11:45 Review of Systems Review of Systems: Constitutional : No Fever, No Chills ENT/Mouth : No sore throat, No Rhinorrhea Eyes: No Eye Pain, No Redness Cardiovascular : No Chest Pain, No SOB Respiratory : No Cough, No Sputum, No Wheezing Gastrointestinal : positive Nausea, No Vomiting, No Diarrhea, positive abdominal pain, Genitourinary : positive irregular bleeding, No Dysuria, No Urinary Frequency, no pelvic pain Musculoskeletal : No Myalgias Skin : No rash Neuro : No Weakness, No Headache Psych : No Anxiety/Panic, No Depression Heme/Lymph: No bruising, No Lymphadenopathy Endocrine : No Polyuria, No Polydipsia All other systems reviewed and are negative PMFSH Past Medical History Attestation statement: The following information was validated with the patient. Medical History Anxiety, generalized Asthma Chronic GERD Heavy menses Migraine headache Surgical History No pertinent past surgical history Family History Family History Father No problems noted. Mother Arthritis Asthma Diabetes mellitus HTN (hypertension) Son No problems noted. Sister No problems noted. Sister No problems noted. Sister No problems noted. Brother No problems noted. Brother No problems noted. Brother No problems noted. Brother No problems noted. Social History Social History Alcohol intake: current Alcohol intake frequency: holidays/special occasions only Smoking Status: Current every day smoker Tobacco Type: Cigarette Advance Directives: No Advance Directives Information Provided: Yes Sexual orientation: Straight/Heterosexual Gender identity: female Physical Exam Vital Signs: Vital Signs: Last Vital Signs Temp 98.0 F 10/06/20 09:45 Pulse 75 10/06/20 09:45 Resp 16 10/06/20 09:45 BP 122/73 10/06/20 09:45 Pulse Ox 99 10/06/20 09:45 Body Mass Index 29.9 Appearance: Alert. Oriented X3. No acute distress. Eyes: Pupils equal, round and reactive to light. ENT: Pharynx normal. Neck: Normal inspection. Neck supple. CVS: Normal heart rate and rhythm. Pulses normal. Respiratory: No respiratory distress. Breath sounds normal. Abdomen: Soft and nontender. : Deferred chronic issue Skin: Skin warm and dry. Normal skin color. Normal skin turgor. Extremities: No lower extremity edema. No calf ttp Neuro: Oriented X 3. No motor deficit. No sensory deficit. Course Course Course Narrative: H/H 8.5 stable for DC MDM - Female Genitourinary MDM Narrative Medical decision making narrative: 50 yo female hx of heavy bleeding hx of transfusions did well with tranexamic acid and progesterone - no new complaints other than her bleeding returned once of medications, has good OB follow up will likely dose her again, plan for D+C and ablation in October - CBC ordered Lab Data Result diagrams: 10/06/20 10:25 Labs: Lab Results 10/06/20 Range/Units 10:25 WBC 10.2 (4.8-10.8) X10*3/uL RBC 3.29 L D (4.20-5.50) X10*6/uL Hgb 8.5 L (12.0-16.0) g/dl Hct 27.8 L (37-47) % MCV 84.5 (80-98) fL MCH 25.8 L (27.0-33.0) pg MCHC 30.6 L (31.0-35.0) g/dl RDW 15.3 (11.0-16.0) % Plt Count 325 (160-400) X10*3/uL MPV 9.7 (9.4-12.3) fL Absolute Nucleated RBC 0.000 (0.0-0.012) X10*3/uL Nucleated RBC % (auto) 0.0 (0.0-0.2) /100WBC Discharge Plan Discharge Clinical Impression: Dysfunctional uterine bleeding Patient Disposition: Home, Self-Care Instructions: Dysfunctional Uterine Bleeding (ED) Additional Instructions: return to ED for any worsening symptoms or concerns Prescriptions: New tranexamic acid 650 mg tablet 650 mg PO TID PRN (Reason: bleeding) Qty: 60 RF: 0 medroxyprogesterone [Provera] 10 mg tablet 10 mg PO DAILY 10 Days Qty: 10 RF: 0 No Action albuterol sulfate 90 mcg/actuation HFA aerosol inhaler 2 inh inhalation Q4-6H PRN (Reason: bronchospasm) 30 Days Qty: 18 RF: 3 budesonide-formoterol 160-4.5 mcg/actuation HFA aerosol inhaler 2 puff PO BID 30 Days Qty: 1 RF: 2 omeprazole 20 mg capsule,delayed release(DR/EC) 20 mg PO DAILY 90 Days Qty: 90 RF: 0 ondansetron HCl 8 mg tablet 8 mg PO ONCE PRN (Reason: nausea and vomiting) 30 Days Qty: 30 RF: 3 fluoxetine 10 mg capsule 10 mg PO DAILY 90 Days Qty: 90 RF: 0 fluticasone propionate 50 mcg/actuation spray,suspension 1 spray intranasal BID 30 Days Qty: 15.8 RF: 5 buspirone 5 mg tablet 5 mg PO BID PRN (Reason: anxiety) 30 Days Qty: 60 RF: 2 topiramate 50 mg tablet 50 mg PO DAILY Qty: 30 RF: 2 sumatriptan succinate 50 mg tablet 50 mg PO ONCE PRN (Reason: for headache) 30 Days Qty: 14 RF: 5 tranexamic acid [Lysteda] 650 mg tablet 1,300 mg PO TID PRN (Reason: bleeding) Qty: 30 RF: 0 medroxyprogesterone [Provera] 10 mg tablet 20 mg PO BID 7 Days Qty: 28 RF: 0 ferrous sulfate 325 mg (65 mg iron) tablet 325 mg PO BID Qty: 60 RF: 3 medroxyprogesterone [Provera] 10 mg tablet 10 mg PO DAILY Qty: 30 RF: 11 Referrals: Lina Regalado MD [Physician] - 5 days Stand Alone Forms: Work/School Release
--- NOTE | 2020-10-06 10:12 | PC.NURSE ---
SEEN BY DR CLEVELAND. PLAN IS TO START TX WITH LAB WORK ONLY.
[2020-10-06 10:40] LABS: Hematocrit 27.8 % (37-47); Hemoglobin 8.5 g/dl (12.0-16.0); Mean Corpuscular HGB Conc 30.6 g/dl (31.0-35.0); Mean Corpuscular Hemoglobin 25.8 pg (27.0-33.0); Mean Corpuscular Volume 84.5 fL (80-98); Mean Platelet Volume 9.7 fL (9.4-12.3); Platelet Count 325 X10*3/uL (160-400); Red Blood Count 3.29 X10*6/uL (4.20-5.50); Red Cell Distribution Width 15.3 % (11.0-16.0); White Blood Count 10.2 X10*3/uL (4.8-10.8)
[2020-10-06 11:06] VITALS: BP 108/67; PULSE 67; O2SAT 98
== END 2020-10-06 11:30 | disposition home or self-care (01) ==
PROVIDERS: Emergency Provider Emergency Medicine; PCP Internal Medicine
DX: N93.8 Other specified abnormal uterine and vaginal bleeding (principal); F17.210 Nicotine dependence, cigarettes, uncomplicated; Z79.3 Long term (current) use of hormonal contraceptives; Z79.899 Other long term (current) drug therapy
CPT/HCPCS: 36415; 85027; 99283

== ENCOUNTER 2020-10-11 13:00 | Outpatient (RCR) | payer OTHER, SELFPAY ==
--- NOTE | 2020-09-20 14:03 | MHC.OT.OEV ---
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 Was given a brace for work, but is not using it due to infection control issues and hand gets more stiff with wear. 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 [employer] 3pm-9pm Ind w/ daily activities Enjoys working out Living Situation, Family and/or Social Support: Lives w/ son and 3 yo granddaughter Current Level of Function and Occupation Self Care, Employment, Leisure: Ind w/ self care, son assists w/ homecare Not going to the gym (injury and Covid related) Painful to hold the phone Sleep: Wake-up w/ pain frequently Driving: Some difficulty gripping and turning Pain Assessment Pain Score: 6 Pain Scale Used: Numeric (0 - 10) Pain Location and Description: Left hand dorsum, left D3-D4 MCP Pain free at rest, some discomfort Aggravating Factors: Over use, pain at nighttime Alleviating Factors: Using ice initially for pain and edema, now using heat Skin and Soft Tissue Assessment Skin and Soft Tissue: Swelling Comments: Left hand/dorsal MCPs Nerve assessment Ulnar Nerve: WNL Median Nerve: WNL Radial Nerve: WNL Comments: Sensory Assessment Comments: Reports numbness and tingling in left D3-D4 Edema Assessment Upper Extremity: Left Impaired Lower Extremity: Comments: MCP circ. R 18.5 cm L 18.0 cm Pt w/ localized edema in space between D2-D3-D4 MCP's Dexterity Assessment Dexterity: Left Impaired Comments: Reports difficulty w/ jewelery, pulling up pants AROM(PROM) Strength Wrist Flexion: Extension: Ulnar Deviation: Radial Deviation: Comments: WNL Flexion: Extension: Ulnar Deviation: Radial Deviation: Comments: Thumb Thumb CMC Flexion: Thumb MCP Flexion: Thumb IP Flexion: Radial Abduction: Palmar Abduction: [place] (Kapandji 0-10): Comments: WNL Digits Index MCP: PIP: DIP: Long MCP: PIP: DIP: Ring MCP: PIP: DIP: Small MCP: PIP: DIP: Comments: WNL Gross Grasp: R 70lb L 15lb Lateral Pinch: Two-Point Pinch: Three-Jaw Vipin: Comments: Patient Education Primary Language: Micronesian Snowboarder Required: No Current Knowledge: Understands information with skills for self-management Teaching Method: Demonstration Handouts Verbal Education Needs Identified on Evaluation: ADL's Disease Information Equipment Use Exercise Pain Safety How did patient/family demonstrate learning? Patient demonstrates Patient verbalizes Barriers to Learning: None Readiness for Learning: Accepting Who was educated? Patient Comments: Plan of Care Assessment: Monica presents about one month after injury at work, trying to assist a combative patient and hand was stretched back. She has been seen in work connection and was given finger splint, but states she is unable to wear it at work and it makes her fingers more stiff. She is currently on moderate duty at work, but continues to have difficulty w/ daily activities, including hair care, driving, sleeping and gripping. She has edema in dorsal hand and moderate pain, ROM is WNL, but grasp is significantly weaker due to pain. She will benefit from cont'd therapy services for optimal gains w/ focus on management of pain, edema and activity modifcation. STG Duration: 2 wks Short Term Goals: Ind w/ use of heat/ice appropriately Ind w/ HEP Ind w/ activity modifications to protect left hand overuse Left gross grasp >25lb LTG Duration: 4 wks Senior Living Goals: QuickDASH score <35 Pain free left hand w/ self care at home Left gross grasp >40lb Pt to return to full work duties Frequency and Duration: The patient will be seen 3x/wk, 4 weeks Treatment Plan: Therapeutic Exercise Therapeutic Activity Home Exercise Program Splinting Patient Education Edema Control ADL Training MHP Cold Packs Joint Mobilization Soft Tissue Mobilization Kinesiotaping Electronically Signed By: Lianet Smith OTR/L Reviewed/agree with student documentation: N/A Therapist: Please sign and return to therapist, Thank you for your referral.
--- NOTE | 2020-11-04 13:13 | MHC.OT.DC ---
[address] [phone] F: [phone] Occupational Therapy Discharge Note Provider: Dr Lim Diagnosis: Left D3-D4 strain Date of Evaluation: 09/20/20 Date of Discharge: 11/04/20 Treatments to Date: 7 Cancellations to Date: 3 No Shows to Date: 1 Discharge Status: Patient Elected to Stop Recommend MD Follow-up Lack of progress towards goals Discharge Summary: Norma was last seen about one month ago, she cont'd to have mild pain and reported functional limitations w/ gripping and heavy tasks. Reporting comfort w/ nighttime orthosis, less pain, and has increased strength, but still w/ edema and constant pain during work. Electronically Signed By: Lianet Smith OTR/L Please Sign and return to therapist, thank you for your referral.
== END 2020-11-09 07:15 | disposition other institution (70) ==
LOC: HO.OT 13:00
PROVIDERS: PCP Internal Medicine; Visit Provider Internal Medicine
DX: S63.653D Sprain of metacarpophalangeal joint of left middle finger, subsequent encounter (principal); S63.65 Sprain of metacarpophalangeal joint of other and unspecified finger(s)
CPT/HCPCS: 29130; 97033; 97035; 97110; 97165; 97760

== ENCOUNTER → 2020-10-18 11:35 | Outpatient (BNVA) | payer OTHER, SELFPAY | PROVIDERS: PCP Internal Medicine; Visit Provider Obstetrics & Gynecology | DX: Z76.89 Persons encountering health services in other specified circumstances (principal) ==

== ENCOUNTER → 2020-10-20 08:15 | Outpatient (BNVA) | payer OTHER, SELFPAY | PROVIDERS: PCP Internal Medicine; Visit Provider Obstetrics & Gynecology | DX: N93.9 Abnormal uterine and vaginal bleeding, unspecified (principal) | CPT/HCPCS: 99212 ==

== ENCOUNTER 2020-10-28 06:30 | Day surgery (SDC) | payer OTHER, SELFPAY ==
[2020-10-22 10:42] VITALS: BMI 31.6
--- NOTE | 2020-10-27 09:50 | P.CONAN_ITS ---
Documented by User: Lydia Garg 10/27/20 09:51 HPI - Anesthesia Eval Consult details Narrative: 50yo F for D&C Hysteroscopy with Novasure ablation PMFSH Past Medical History Medical History (Updated 10/28/20 @ 08:01 by Juanita Bernabe) Anemia Anxiety, generalized Asthma Chronic GERD Heavy menses Migraine headache Family History Family History Father No problems noted. Mother Arthritis Asthma Diabetes mellitus HTN (hypertension) Son No problems noted. Sister No problems noted. Sister No problems noted. Sister No problems noted. Brother No problems noted. Brother No problems noted. Brother No problems noted. Brother No problems noted. Surgical History Surgical History Hx of arthroscopic knee surgery No pertinent past surgical history Social History Social History Are you a primary long term acute care registered nurse to a significant other at home: No Do you presently have visiting nurse or other home services: No Alcohol intake: current Alcohol intake frequency: holidays/special occasions only Smoking Status: Current every day smoker Tobacco Type: Cigarette Cigarettes Per Day: 2 Years Smoked: 20 Smoked in Last 30 Days: Yes Patient Interested in Nicotine Replacement: No Patient Given Instructions on How to Stop Smoking: Yes Date Education Initiated: 10/22/20 Second Hand Smoke Exposure: No Use of substances other than those prescribed or required for medical reasons: No Have you been hit, kicked, punched, or otherwise hurt by someone within the past year? If so, by whom?: No Advance Directives: No Advance Directives Information Provided: No Advance Directives on File: No Recently lost weight without trying: No Sexual orientation: Straight/Heterosexual Gender identity: female Meds Allergies Allergy/AdvReac Type Severity Reaction Status Date / Time seafood Allergy Unknown hives, Verified 10/28/20 07:04 throat feels like it is closing ibuprofen [IBUPROFEN] AdvReac Unknown HEARTBURN Verified 10/28/20 07:04 Home Medications Medication Instructions Recorded Confirmed Type lorazepam 1 tab PO Q12H PRN 10/22/20 10/22/20 History Exam Exam Date and Time: October 27, 2020 0950 Height,Weight and Vital Signs: Height 5 ft 5 in Weight 86.183 kg Pertinent Lab Results Pertinent Lab Results: Laboratory Tests 09/20/20 10/06/20 19:58 10:25 WBC 10.2 Hgb 8.5 L Hct 27.8 L Plt Count 325 Sodium 138 Potassium 4.0 Chloride 107 Carbon Dioxide 22 BUN 13 Creatinine 0.68 Assessment and Plan Assessment Anesthesia Assessment: Chart Reviewed Documented by User: Juanita Bernabe 10/28/20 08:29 PMFSH Past Medical History Medical History (Updated 10/28/20 @ 08:01 by Juanita Bernabe) Anemia Anxiety, generalized Asthma Chronic GERD Heavy menses Migraine headache Family History Family History Father No problems noted. Mother Arthritis Asthma Diabetes mellitus HTN (hypertension) Son No problems noted. Sister No problems noted. Sister No problems noted. Sister No problems noted. Brother No problems noted. Brother No problems noted. Brother No problems noted. Brother No problems noted. Family history of problems with anesthesia: No Surgical History Surgical History Hx of arthroscopic knee surgery No pertinent past surgical history History of Problems with Anesthesia: No Social History Social History Are you a primary long term acute care registered nurse to a significant other at home: No Do you presently have visiting nurse or other home services: No Alcohol intake: current Alcohol intake frequency: holidays/special occasions only Smoking Status: Current every day smoker Tobacco Type: Cigarette Cigarettes Per Day: 2 Years Smoked: 20 Smoked in Last 30 Days: Yes Patient Interested in Nicotine Replacement: No Patient Given Instructions on How to Stop Smoking: Yes Date Education Initiated: 10/22/20 Second Hand Smoke Exposure: No Use of substances other than those prescribed or required for medical reasons: No Have you been hit, kicked, punched, or otherwise hurt by someone within the past year? If so, by whom?: No Advance Directives: No Advance Directives Information Provided: No Advance Directives on File: No Recently lost weight without trying: No Sexual orientation: Straight/Heterosexual Gender identity: female Meds Allergies Allergy/AdvReac Type Severity Reaction Status Date / Time seafood Allergy Unknown hives, Verified 10/28/20 07:04 throat feels like it is closing ibuprofen [IBUPROFEN] AdvReac Unknown HEARTBURN Verified 10/28/20 07:04 Home Medications Medication Instructions Recorded Confirmed Type lorazepam 1 tab PO Q12H PRN 10/22/20 10/22/20 History Exam Height,Weight and Vital Signs: Vital Signs Temp Pulse Resp BP Pulse Ox 10/28/20 07:08 97.9 F 75 16 113/64 98 Airway Mallampati Class: II TM Dist: >3cm Neck ROM: Full Loose/Missing/Broken Teeth: No Assessment and Plan Assessment Anesthesia Assessment: Anesthesia Plan Discussed and Chart Reviewed Final Anesthetic Review NPO: Yes ASA Class: II Final Preanesthetic Review: No Changes in Pt Med Stat, Meds/Allgs Chart Reviewed, Consent Obtained/Reviewed and Anes Risks/Benef Reviewed Patient Risk: Low Procedure Risk: Low Assessment/Block/Sedation in SS: Assess/Block/Sedation-SS Anesthetic Plan Anesthetic Plan: GA Disposition: Standard PACU
[2020-10-28] VITALS (9 sets, daily range): BP systolic 98–113; BP diastolic 53–64; PULSE 64–83; RESP 12–18; TEMP 36.3–36.6; O2SAT 96–100
[2020-10-28] MEDS: Lactated Ringers 1,000 ML 100 ML IVCONT (07:38)
--- NOTE | 2020-10-28 07:39 | PC.NURSE ---
MADE AWARE OF HCG QUANT CANCELLED IN COMPUTER. SAID SHE DIDN'T NEED IT UNLESS WE REQUIRED IT. NO HCG DONE.
--- NOTE | 2020-10-28 10:21 | W.PM.OPN ---
Operative Note Operative Note Date of Service: 10/28/20 Narrative: Ms. Gonzalez is a 50 year old with acute blood loss anemia secondary to 6 weeks of vaginal bleeding starting in July. Medical management was attempted with medroxyprogesterone but was inadequate to resolve symptoms. An endometrial biopsy was performed, which was benign. An ultrasound was performed, which was grossly unremarkable. The patient was counseled that endometrial ablation is not indicated if she desires future fertility. The patient expressed understanding of this and stated that her family planning is complete and her current form of control is that she is only sexually active with women. Surgical Risks: The patient was informed of the risks and benefits of the procedure. Risks included but were not limited to bleeding, infection, injury to the vulva, vagina, or cervix, and uterine perforation. The patient was also informed of the risk that the Novasure ablation may not result in full resolution of symptoms. The patient expressed understanding of the risks involved, all questions were answered, and she consented to the procedure. The patient was taken to the operating room where a time out was performed to confirm correct patient and correct procedure. General anesthesia was established. The patient was then positioned on the operating table in the dorsal lithotomy position and her legs supported using stirrups. All pressure points were padded and a warm blanket was placed to maintain control of core body temperature. The patient was then prepped and draped in the usual sterile fashion. A bimanual exam was performed and the uterus was found to be midline. The adnexa were palpated bilaterally and there were no palpable masses. The patient voided just before being brought back to the O.R. A bivalve speculum was inserted into the vagina. The anterior lip of the cervix was visualized and grasped using a single tooth tenaculum. The hysteroscope was introduced through the cervix and advanced to the fundus of the uterus under direct visualization using distending media. Inspection of the entire uterine cavity was performed. There were no abnormalities noted. The ostia were visualized bilaterally. The hysteroscope was then removed. A sharp curette was introduced and sharp curettage was performed in 360 degrees to cover all surfaces. The Novasure SureSound device was then inserted through the cervix. The malecot was then deployed and the device was anchored on the internal os. The cervical length was measured and found to be 3cm. The probe was then extended to the fundus and the uterine cavity was measured and found to be 5cm. The SureSound was then removed and the Novasure was introduced through the cervix and advanced to the fundus. The Novasure was released and rotated from side to side in order to measure the cavity width; it was found to be 4.4cm. The test was performed using the NovaSure and there was no leakage of gas noted. The NovaSure was then set and deployed. Burn time was 1:15. The NovaSure was then fully retracted and the hysteroscope reintroduced through the cervix and global ablation to the entire cavity was noted. The procedure was felt to be successful. The hysteroscope was then removed and the single tooth tenaculum was removed from the anterior lip of the cervix. Good hemostasis was confirmed. All needle, sponge, and instrument counts were noted to be correct x2 at the end of the procedure. The patient was transferred to the recovery room in stable condition.
[2020-10-28] MEDS: Acetaminophen 325 MG TABLET 650 MG PO (10:38)
[2020-10-28] MEDS: oxyCODONE HCl Immed Release 5 MG TABLET PO (10:39)
--- NOTE | 2020-10-28 12:46 | HO.POSTANES ---
Post Anesthesia Evaluation Post Anesthesia Evaluation Vital Signs: Vital Signs Temp Pulse Resp BP Pulse Ox 10/28/20 11:40 97.4 F 68 18 102/57 L 97 10/28/20 11:24 65 18 98/60 98 10/28/20 11:09 64 16 100/53 L 98 10/28/20 10:54 67 16 102/53 L 98 10/28/20 10:39 74 18 112/54 L 98 10/28/20 10:34 82 18 107/61 97 10/28/20 10:29 83 18 111/63 96 10/28/20 10:24 97.4 F 76 12 108/54 L 100 10/28/20 07:08 97.9 F 75 16 113/64 98 Anesthesia: General LMA Mental Status: Awake Pain Control: Satisfactory Nausea/Vomiting: None Hydration: Adequate Anesthesia-Related Issues: No Anes. Related Issues
== END 2020-10-28 12:24 | disposition home or self-care (01) ==
PROVIDERS: PCP Internal Medicine; Visit Provider Obstetrics & Gynecology
PROC: (CPT 58563; principal; 2020-10-28 10:20)
DX: N93.9 Abnormal uterine and vaginal bleeding, unspecified (principal); N92.0 Excessive and frequent menstruation with regular cycle; F41.9 Anxiety disorder, unspecified; J45.909 Unspecified asthma, uncomplicated; F17.210 Nicotine dependence, cigarettes, uncomplicated
CPT/HCPCS: 58563; 88305; J1100; J1885; J2250; J2405; J3010

== ENCOUNTER → 2020-11-10 11:50 | Outpatient (BNVA) | payer OTHER, SELFPAY | PROVIDERS: PCP Internal Medicine; Visit Provider Obstetrics & Gynecology | DX: Z76.89 Persons encountering health services in other specified circumstances (principal) ==

== ENCOUNTER 2021-01-26 10:09 | Outpatient (REF) | payer OTHER, SELFPAY ==
[2021-01-29 10:21] LABS: HPV 16 RNA DETECTED (NOT DETECTED); HPV mRNA E6/E7 rflx Detected (Not Detected)
== END 2021-01-26 10:10 | disposition home or self-care (01) ==
LOC: HO.LAB 10:09
PROVIDERS: PCP Internal Medicine; Visit Provider Obstetrics & Gynecology
DX: R87.615 Unsatisfactory cytologic smear of cervix (principal)
CPT/HCPCS: 87624; 87625; 88141; 88142; 99212

== ENCOUNTER 2021-03-22 09:21 | Outpatient (REF) | payer OTHER, SELFPAY | END 2021-03-22 09:22 | disposition home or self-care (01) | LOC: HO.LAB 09:21 | PROVIDERS: PCP Internal Medicine; Visit Provider Obstetrics & Gynecology | DX: B97.7 Papillomavirus as the cause of diseases classified elsewhere (principal); F17.210 Nicotine dependence, cigarettes, uncomplicated | CPT/HCPCS: 57454; 88305 ==

== ENCOUNTER 2021-03-23 13:54 | Outpatient (REF) | payer OTHER, SELFPAY ==
[2021-03-23 16:56] LABS: MANUAL DIFF FLAG NO
[2021-03-23 17:06] LABS: Basophils Absolute Auto 0.1 X10*3/uL (0.0-0.2); Basophils Percent Auto 0.5 % (0-2); Eosinophils Absolute Auto 0.2 X10*3/uL (0.0-0.4); Eosinophils Percent Auto 1.9 % (0-4); Hematocrit 38.3 % (37-47); Hemoglobin 11.7 g/dl (12.0-16.0); Imm Gran Abs Auto 0.03 X10*3/uL (0.00-0.03); Imm Gran Pct Auto 0.3 % (0.0-0.4); Lymphocytes Absolute Auto 2.5 X10*3/uL (1.2-4.9); Lymphocytes Percent Auto 24.5 % (20-40); Mean Corpuscular HGB Conc 30.5 g/dl (31.0-35.0); Mean Corpuscular Hemoglobin 26.5 pg (27.0-33.0); Mean Corpuscular Volume 86.7 fL (80-98); Mean Platelet Volume 10.7 fL (9.4-12.3); Monocytes Absolute Auto 0.7 X10*3/uL (0.1-1.2); Monocytes Percent Auto 6.7 % (2-11); Neutrophils Absolute Auto 6.7 X10*3/uL (2.0-8.3); Neutrophils Percent Auto 66.1 % (45-73); Platelet Count 289 X10*3/uL (160-400); Red Blood Count 4.42 X10*6/uL (4.20-5.50); Red Cell Distribution Width 16.4 % (11.0-16.0); White Blood Count 10.2 X10*3/uL (4.8-10.8)
[2021-03-23 17:16] LABS: Alanine Aminotransferase 16 U/L (0-31); Albumin Level 3.8 g/dL (3.5-5.0); Alkaline Phosphatase 71 U/L (39-117); Anion Gap 11 (12-20); Aspartate Amino Transferase 21 U/L (5-31); Bilirubin Direct < 0.2 mg/dL (0.0-0.5); Bilirubin Total 0.3 mg/dL (0.0-1.0); Blood Urea Nitrogen 15 mg/dL (9-16); Calcium 9.2 mg/dL (8.4-10.2); Carbon Dioxide 24 mmol/L (22-29); Chloride 108 mmol/L (96-108); Estimated Glomerular Filt Rate > 60; Glucose Random 94 mg/dL (60-115); Potassium 3.8 mmol/L (3.3-5.1); Sodium 139 mmol/L (135-145); Total Protein 6.5 g/dL (6.5-8.0)
== END 2021-03-23 13:55 | disposition home or self-care (01) ==
LOC: HO.HMGCLDS 13:54
PROVIDERS: PCP Internal Medicine; Visit Provider Internal Medicine
DX: D50.9 Iron deficiency anemia, unspecified (principal); G43.109 Migraine with aura, not intractable, without status migrainosus; F41.1 Generalized anxiety disorder; J45.50 Severe persistent asthma, uncomplicated; Z91.09 Other allergy status, other than to drugs and biological substances
CPT/HCPCS: 36415; 80053; 80076; 82248; 85025

== ENCOUNTER → 2021-03-29 11:45 | Outpatient (BNVA) | payer OTHER, SELFPAY | PROVIDERS: PCP Internal Medicine; Visit Provider Obstetrics & Gynecology ==

== ENCOUNTER 2022-01-05 09:05 | Outpatient (REF) | payer OTHER, SELFPAY ==
--- NOTE | ~2022-01-05 | XR_ITS ---
EXAMINATION: XR KNEE, LEFT CLINICAL INFORMATION: Pain in left knee COMPARISON: None TECHNIQUE: Four views of the left knee. FINDINGS: No acute fracture or dislocation. Joint spaces and articular surfaces are maintained. Small marginal osteophytes present along the medial tibiofemoral compartment. No joint effusion. XR/XR knee LT 4V IMPRESSION: Normal left knee.
[2022-01-05 11:08] LABS: MANUAL DIFF FLAG NO
[2022-01-05 11:14] LABS: Basophils Percent Auto 0.5 % (0-2); Eosinophils Absolute Auto 0.2 X10*3/uL (0.0-0.4); Eosinophils Percent Auto 2.6 % (0-4); Hematocrit 42.8 % (37.0-47.0); Hemoglobin 13.2 g/dl (12.0-16.0); Imm Gran Abs Auto 0.03 X10*3/uL (0.00-0.03); Imm Gran Pct Auto 0.3 % (0.0-0.4); Lymphocytes Absolute Auto 2.7 X10*3/uL (1.2-4.9); Mean Corpuscular HGB Conc 30.8 g/dl (31.0-35.0); Mean Corpuscular Hemoglobin 28.6 pg (27.0-33.0); Mean Corpuscular Volume 92.6 fL (80.0-98.0); Mean Platelet Volume 10.3 fL (9.4-12.3); Monocytes Absolute Auto 0.7 X10*3/uL (0.1-1.2); Monocytes Percent Auto 8.4 % (2-11); Neutrophils Absolute Auto 4.9 x10*3/uL (2.0-8.3); Neutrophils Percent Auto 57.2 % (45-73); Platelet Count 297 X10*3/uL (160-400); Red Blood Count 4.62 X10*6/uL (4.20-5.50); Red Cell Distribution Width 13.4 % (11.0-16.0); White Blood Count 8.6 X10*3/uL (4.8-10.8)
[2022-01-05 11:56] LABS: Alanine Aminotransferase 24 U/L (0-31); Albumin Level 3.9 g/dL (3.5-5.0); Alkaline Phosphatase 79 U/L (39-117); Anion Gap 12 (12-20); Aspartate Amino Transferase 19 U/L (5-31); Bilirubin Total 0.4 mg/dL (0.0-1.0); Blood Urea Nitrogen 12 mg/dL (9-16); Carbon Dioxide 27 mmol/L (22-29); Chloride 107 mmol/L (96-108); Estimated Glomerular Filt Rate > 60; Glucose Random 90 mg/dL (60-115); Potassium 5.1 mmol/L (3.3-5.1); Sodium 141 mmol/L (135-145); TSH reflex Free T4 1.19 uIU/mL (0.32-4.0); Total Protein 7.1 g/dL (6.5-8.0)
[2022-01-06 06:07] LABS: LDL Cholesterol Direct 87 mg/dL (<100)
== END 2022-01-05 09:06 | disposition home or self-care (01) ==
LOC: HO.HMGCX 09:05
PROVIDERS: PCP Internal Medicine; Visit Provider Internal Medicine
DX: M25.562 Pain in left knee (principal); R63.5 Abnormal weight gain
CPT/HCPCS: 36415; 73564; 80053; 83721; 84443; 85025

== ENCOUNTER 2022-02-17 17:13 | Emergency (ER) | payer OTHER, SELFPAY ==
--- NOTE | ~2022-02-17 | XR_ITS ---
EXAMINATION: XR HAND, LEFT CLINICAL INFORMATION: Pain. Laceration. Crush injury. COMPARISON: None TECHNIQUE: PA, lateral, and oblique views of the left hand. FINDINGS: Minimally displaced transverse fracture through the distal tuft of the distal phalanx of the middle digit. Remainder of the hand and wrist are normal. XR/XR hand LT min 3V IMPRESSION: Fracture distal tuft distal phalange of the middle digit.
[2022-02-17 17:51] VITALS: BP 155/100; PULSE 84; RESP 18; TEMP 36.3; O2SAT 98; BMI 32.4
--- NOTE | 2022-02-17 19:02 | ED.EXTPRO ---
HPI - Extremity Problem General Chief complaint: Extremity Injury, Upper Stated complaint: Finger injury Source: patient Mode of arrival: ambulatory Limitations: no limitations History of Present Illness HPI Narrative: 51-year-old female presents with injury to the 3rd and 4th digits on the left hand after getting her hand slammed into a door yesterday. Patient states to have 10/10 pain and is having a difficult time moving her fingers. MD Complaint: extremity pain Onset (ago): day(s) (1) Pain Consistency: constant Location: left and upper extremity Severity scale (1-10): 10 Quality: aching and constant Radiation: none Relieving factors: nothing Exacerbating factors: range of motion, exertion and palpation Associated symptoms: denies other symptoms Related Data Previous Rx's Medication Instructions Recorded ondansetron HCl 8 mg tablet 8 mg PO ONCE PRN 30 Days #30 tab 08/17/20 sumatriptan succinate 50 mg tablet 50 mg PO ONCE PRN 30 Days #14 tab 10/05/20 acetaminophen 650 mg 650 mg PO Q8H PRN #60 tab 10/28/20 tablet,extended release (Tylenol 8 Hour) topiramate 50 mg tablet 50 mg PO DAILY #30 tab 01/10/21 ferrous sulfate 325 mg (65 mg 325 mg PO BID #60 tab 01/18/21 iron) tablet fluticasone propionate 50 1 spray INTRANASAL BID 30 Days 03/21/21 mcg/actuation nasal #15.8 ml spray,suspension cetirizine 10 mg tablet (Zyrtec) 10 mg PO DAILY PRN 90 Days #90 tab 03/23/21 albuterol sulfate 90 mcg/actuation 2 inh INHALATION Q4-6H PRN 30 Days 09/05/21 aerosol inhaler #18 g budesonide-formoterol HFA 160 2 puff PO BID 30 Days #1 units 10/31/21 mcg-4.5 mcg/actuation aerosol inhaler fluoxetine 10 mg capsule 10 mg PO DAILY 90 Days #90 cap 11/28/21 omeprazole 20 mg capsule,delayed 20 mg PO DAILY 90 Days #90 cap 11/28/21 release buspirone 5 mg tablet 5 mg PO BID PRN 30 Days #60 tab 12/19/21 montelukast 10 mg tablet 10 mg PO DAILY 30 Days #90 tab 12/29/21 hydroxyzine HCl 50 mg tablet 50 mg PO BEDTIME PRN 30 Days #30 02/14/22 tab ibuprofen 600 mg tablet 600 mg PO Q6H PRN #60 tab 02/17/22 Allergies Allergy/AdvReac Type Severity Reaction Status Date / Time peanut Allergy Severe Hives Verified 02/14/22 11:25 seafood Allergy Unknown hives, Verified 02/14/22 11:25 throat feels like it is closing ibuprofen [IBUPROFEN] AdvReac Unknown HEARTBURN Verified 02/14/22 11:25 Review of Systems Review of Systems: Constitutional: No Fever, No Chills ENT/Mouth: No Ear Pain, No Hoarseness, No sore throat Eyes: No Eye Pain, No Swelling, No Redness, No Foreign Body Cardiovascular: No Chest Pain, No SOB Respiratory: No Cough, No Dyspnea Gastrointestinal: No Nausea, No Vomiting, No Diarrhea, No abdominal Pain Genitourinary: No Dysuria, No Hematuria Musculoskeletal: positive left 3rd finger pain, No Myalgias, No Joint Swelling Skin: No Skin lacerations, No rash Neuro: No Weakness, No Numbness, No Paresthesias, No Loss of Consciousness, No Dizziness, No Headache Psych: No Anxiety/Panic, No Depression Heme/Lymph: no easy bruising, no Lymphadenopathy Endocrine: No Polyuria, No Polydipsia Yes all other systems are reviewed and are negative [facility] Past Medical History Attestation statement: The following information was validated with the patient. Source: old records reviewed Medical History Anemia Anxiety, generalized Asthma Chronic GERD Heavy menses Migraine headache Surgical History Hx of arthroscopic knee surgery No pertinent past surgical history Family History Family History Father No problems noted. Mother Arthritis Asthma Diabetes mellitus HTN (hypertension) Son No problems noted. Sister No problems noted. Sister No problems noted. Sister No problems noted. Brother Substance use disorder Brother Substance use disorder Brother Substance use disorder Brother No problems noted. Social History Social History Housing: House Are you a primary pharmacist critical care to a significant other at home: No Do you presently have visiting nurse or other home services: No Alcohol intake: current Alcohol intake frequency: holidays/special occasions only Patient Tobacco Use Status: Current everyday Tobacco user Cigarettes Per Day: 1 Years Smoked: 20 e-Cigarette/Vaping Use: Never Used Second Hand Smoke Exposure: No Advance Directives: No Advance Directives Information Provided: No Current occupational status: employed Sexual orientation: Straight/Heterosexual Gender identity: Female Cognitive needs: No Hearing needs: No Vision needs: No Physical Exam Vital Signs: Vital Signs: Last Vital Signs Temp 97.4 F 02/17/22 17:51 Pulse 84 02/17/22 17:51 Resp 18 02/17/22 17:51 BP 155/100 H 02/17/22 17:51 Pulse Ox 98 02/17/22 17:51 BMI result Body Mass Index 32.4 Appearance: Alert. Oriented X3. No acute distress. Eyes: Pupils equal, round and reactive to light. ENT: Pharynx normal. Neck: Normal inspection. Neck supple. CVS: Normal heart rate and rhythm. Pulses normal. Respiratory: No respiratory distress. Breath sounds normal. Abdomen: Soft and nontender. Skin: Skin warm and dry. Normal skin color. Normal skin turgor. Extremities: No lower extremity edema. Bruising and swelling noted to the 3rd left digit with subungual hematoma. Neuro: No motor deficit. No sensory deficit. Cranial nerves 2-12 intact. Course Course Course Narrative: 51-year-old female presents with injury to the left 3rd and 4th digits from a crush injury that occurred yesterday. Patient got her hand caught in a door. Third digit is swollen, bruised with subungual hematoma. X-rays completed while patient was in the emergency department waiting room indicated a distal fracture to the tip of the 3rd finger. Tdap was updated today. Finger placed in a splint, nail trephination without difficulty. Patient verbalized understanding of and agrees to plan of care discharge home. Verbalized understanding signs and symptoms indicating need for emergent intervention. MDM - Extremity (Nontraumatic) MDM Narrative Medical decision making narrative: Fracture, subungual hematoma Medical Records Attestation: I reviewed the patient's medical records. Imaging Data Left hand x-ray: Attestation: I personally reviewed and interpreted this imaging study as follows: Radiologist's impression: EXAMINATION: XR HAND, LEFT CLINICAL INFORMATION: Pain. Laceration. Crush injury.? COMPARISON: None? TECHNIQUE: PA, lateral, and oblique views of the left hand. FINDINGS: Minimally displaced transverse fracture through the distal tuft of the distal phalanx of the middle digit. Remainder of the hand and wrist are normal.? XR/XR hand LT min 3V IMPRESSION: Fracture distal tuft distal phalange of the middle digit. Procedures Nail Trephination Time out: Yes Location (finger): left and middle Sterile prep: betadine Method of drainage: nail cautery Procedure successful: Yes Patient tolerated procedure: No Complications Discharge Plan Discharge Clinical Impression: Finger fracture, left Patient Disposition: Home, Self-Care Instructions: Finger Fracture (ED) Additional Instructions: You were evaluated for finger pain from a crush injury. Your 3rd finger on the left hand is fractured at the tip. Please keep splint in place for comfort. We drained the blood out of the blister underneath her fingernail. You can expect drainage for the next few days. Follow-up with primary care physician. Thank you for choosing this emergency department for evaluation. Please follow-up with primary care physician as needed. Return to the emergency department for any new, concerning, or worsening symptoms. Prescriptions: New ibuprofen 600 mg tablet 600 mg PO Q6H PRN (Reason: pain) Qty: 60 0RF No Action ondansetron HCl 8 mg tablet 8 mg PO ONCE PRN (Reason: nausea and vomiting) 30 Days Qty: 30 3RF sumatriptan succinate 50 mg tablet 50 mg PO ONCE PRN (Reason: for headache) 30 Days Qty: 14 5RF topiramate 50 mg tablet 50 mg PO DAILY Qty: 30 2RF ferrous sulfate 325 mg (65 mg iron) tablet 325 mg PO BID Qty: 60 11RF fluticasone propionate 50 mcg/actuation spray,suspension 1 spray intranasal BID 30 Days Qty: 15.8 5RF albuterol sulfate 90 mcg/actuation HFA aerosol inhaler 2 inh inhalation Q4-6H PRN (Reason: bronchospasm) 30 Days Qty: 18 3RF budesonide-formoterol 160-4.5 mcg/actuation HFA aerosol inhaler 2 puff PO BID 30 Days Qty: 1 2RF fluoxetine 10 mg capsule 10 mg PO DAILY 90 Days Qty: 90 0RF omeprazole 20 mg capsule,delayed release(DR/EC) 20 mg PO DAILY 90 Days Qty: 90 0RF buspirone 5 mg tablet 5 mg PO BID PRN (Reason: anxiety) 30 Days Qty: 60 2RF montelukast 10 mg tablet 10 mg PO DAILY 30 Days Qty: 90 0RF acetaminophen [Tylenol 8 Hour] 650 mg tablet extended release 650 mg PO Q8H PRN (Reason: pain) Qty: 60 1RF cetirizine [Zyrtec] 10 mg tablet 10 mg PO DAILY PRN (Reason: allergy symptoms) 90 Days Qty: 90 0RF hydroxyzine HCl 50 mg tablet 50 mg PO BEDTIME PRN (Reason: sleep) 30 Days Qty: 30 0RF Rx Instructions: Take half or full tablet at bedtime as needed Interventions: ED Discharge Assessment Last Done: 02/17/22 19:51 Discharge Date/Time: 02/17/22 19:53
[2022-02-17] MEDS: Ibuprofen 600 MG TABLET PO (19:40)
[2022-02-17] MEDS: Diphth,Pertus(ACell),Tet Adult 0.5 ML SYRINGE IM (19:41)
[2022-02-17] MEDS: Famotidine 20 MG TABLET PO (19:41)
== END 2022-02-17 19:53 | disposition home or self-care (01) ==
PROVIDERS: Emergency Provider Emergency Medicine; PCP Internal Medicine
DX: S62.633A Displaced fracture of distal phalanx of left middle finger, initial encounter for closed fracture (principal); S60.132A Contusion of left middle finger with damage to nail, initial encounter; J45.909 Unspecified asthma, uncomplicated; F17.210 Nicotine dependence, cigarettes, uncomplicated; W23.0XXA Caught, crushed, jammed, or pinched between moving objects, initial encounter; Y93.9 Activity, unspecified; Y92.9 Unspecified place or not applicable; Y99.9 Unspecified external cause status
CPT/HCPCS: 11740; 29130; 73130; 90471; 90715; 99283; 99284

== ENCOUNTER 2022-08-11 14:41 | Outpatient (REF) | payer OTHER, SELFPAY ==
[2022-08-11 17:03] LABS: MANUAL DIFF FLAG NO
[2022-08-11 17:16] LABS: Alanine Aminotransferase 21 U/L (0-31); Alkaline Phosphatase 90 U/L (39-117); Anion Gap 14 (12-20); Aspartate Amino Transferase 20 U/L (5-31); Bilirubin Total 0.2 mg/dL (0.0-1.0); Blood Urea Nitrogen 14 mg/dL (9-16); Calcium 9.6 mg/dL (8.4-10.2); Carbon Dioxide 27 mmol/L (22-29); Chloride 105 mmol/L (96-108); Estimated Glomerular Filt Rate > 60; Glucose Random 86 mg/dL (60-115); Potassium 4.9 mmol/L (3.3-5.1); Sodium 141 mmol/L (135-145); Total Protein 7.2 g/dL (6.5-8.0)
[2022-08-11 17:28] LABS: Basophils Absolute Auto 0.1 X10*3/uL (0.0-0.2); Basophils Percent Auto 0.7 % (0-2); Eosinophils Absolute Auto 0.2 X10*3/uL (0.0-0.4); Eosinophils Percent Auto 2.4 % (0-4); Hematocrit 41.3 % (37.0-47.0); Hemoglobin 13.1 g/dl (12.0-16.0); Imm Gran Abs Auto 0.06 X10*3/uL (0.00-0.03); Imm Gran Pct Auto 0.6 % (0.0-0.4); Lymphocytes Absolute Auto 2.8 X10*3/uL (1.2-4.9); Lymphocytes Percent Auto 28.2 % (20-40); Mean Corpuscular HGB Conc 31.7 g/dl (31.0-35.0); Mean Corpuscular Hemoglobin 28.1 pg (27.0-33.0); Mean Corpuscular Volume 88.6 fL (80.0-98.0); Mean Platelet Volume 10.2 fL (9.4-12.3); Monocytes Absolute Auto 0.9 X10*3/uL (0.1-1.2); Neutrophils Absolute Auto 5.9 x10*3/uL (2.0-8.3); Neutrophils Percent Auto 59.1 % (45-73); Platelet Count 298 X10*3/uL (160-400); Red Blood Count 4.66 X10*6/uL (4.20-5.50); Red Cell Distribution Width 12.4 % (11.0-16.0)
== END 2022-08-11 14:42 | disposition home or self-care (01) ==
LOC: HO.HMGCLDS 14:41
PROVIDERS: PCP Internal Medicine; Visit Provider Internal Medicine
DX: Z00.01 Encounter for general adult medical examination with abnormal findings (principal); E66.09 Other obesity due to excess calories; F41.1 Generalized anxiety disorder; G43.909 Migraine, unspecified, not intractable, without status migrainosus; G47.9 Sleep disorder, unspecified; J45.40 Moderate persistent asthma, uncomplicated; K21.9 Gastro-esophageal reflux disease without esophagitis; Z91.09 Other allergy status, other than to drugs and biological substances
CPT/HCPCS: 36415; 80053; 85025

== ENCOUNTER 2022-09-27 12:25 | Emergency (ER) | payer OTHER, SELFPAY ==
--- NOTE | ~2022-09-27 | XR_ITS ---
EXAMINATION: XR CHEST CLINICAL INFORMATION: Chest pain COMPARISON: Previous chest x-ray January 2020 TECHNIQUE: 2 views of the chest were obtained. FINDINGS: No significant abnormality is noted involving the heart, lungs, mediastinum, bony thorax or soft tissues. XR/XR chest 2V IMPRESSION: Unremarkable examination.
--- NOTE | 2022-09-27 12:34 | ECG_ITS ---
Test Reason : CHEST PAIN Blood Pressure : / mmHG Vent. Rate : 074 BPM Atrial Rate : 074 BPM P-R Int : 144 ms QRS Dur : 092 ms QT Int : 386 ms P-R-T Axes : 039 -10 013 degrees QTc Int : 428 ms Normal sinus rhythm Normal ECG When compared with ECG of 22-JAN-2020 11:47, No significant change was found Referred By: Lina Cason Electronically Signed By:IRWIN SHELBY
[2022-09-27 12:35] VITALS: BP 109/63; PULSE 82; RESP 20; TEMP 36.9; O2SAT 95; BMI 29.9
--- NOTE | 2022-09-27 12:36 | ED.CHESTPAIN ---
HPI - Chest Pain General Chief Complaint: Chest Pain Stated Complaint: chest pain, pain down arms to fingers, per EMS Time Seen by Provider: 09/27/22 12:28 Source: patient Mode of arrival: EMS Limitations: no limitations History of Present Illness HPI narrative: Patient is a 52-year-old female who presents emergency department for evaluation of chest pain. 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 It seemed to be worse with particular movements and deep inspiration. Pain was radiating to down the left arm. She received aspirin and nitro from EMS she states significantly improved the pain, currently 12/22. She states that she has been diagnosed with bronchitis about 2 weeks ago, cough is still present but minimal at this time. Denies fevers, chills, headache, dizziness, lightheadedness, neck pain, neck stiffness, shortness of breath, difficulty breathing, nausea, vomiting, abdominal pain. Denies personal history of DVT/PE, personal history of cancer, oral contraceptive usage, recent surgery or prolonged immobilization. Related Data Previous Rx's Medication Instructions Recorded ondansetron HCl 8 mg tablet 8 mg PO ONCE PRN nausea and 08/17/20 vomiting 30 days #30 tabs sumatriptan succinate 50 mg tablet 50 mg PO ONCE PRN for headache 30 10/05/20 days #14 tabs acetaminophen 650 mg 650 mg PO Q8H PRN pain #60 tabs 10/28/20 tablet,extended release (Tylenol 8 Hour) topiramate 50 mg tablet 50 mg PO DAILY #30 tabs 01/10/21 ferrous sulfate 325 mg (65 mg 325 mg PO BID #60 tabs 01/18/21 iron) tablet cetirizine 10 mg tablet (Zyrtec) 10 mg PO DAILY PRN allergy 03/23/21 symptoms 90 days #90 tabs albuterol sulfate 90 mcg/actuation 2 inh inhalation Q4-6H PRN 09/05/21 aerosol inhaler bronchospasm 30 days #18 grams budesonide-formoterol HFA 160 2 puff PO BID 30 days #1 units 10/31/21 mcg-4.5 mcg/actuation aerosol inhaler ibuprofen 600 mg tablet 600 mg PO Q6H PRN pain #60 tabs 02/17/22 buspirone 5 mg tablet 5 mg PO BID PRN anxiety 30 days 03/21/22 #60 tabs fluoxetine 10 mg capsule 10 mg PO DAILY 90 days #90 caps 03/21/22 omeprazole 20 mg capsule,delayed 20 mg PO DAILY 90 days #90 caps 03/21/22 release fluticasone propionate 50 1 spray intranasal BID 30 days 04/04/22 mcg/actuation nasal #15.8 mL spray,suspension montelukast 10 mg tablet 10 mg PO DAILY 30 days #90 tabs 08/08/22 hydroxyzine HCl 50 mg tablet 50 mg PO BEDTIME PRN sleep 30 days 08/11/22 #30 tabs prednisone 10 mg tablet 10 mg PO DAILY 7 days #7 tabs 08/11/22 Allergies Allergy/AdvReac Type Severity Reaction Status Date / Time peanut Allergy Severe Hives Verified 09/27/22 12:39 seafood Allergy Unknown hives, Verified 09/27/22 12:39 throat feels like it is closing ibuprofen [IBUPROFEN] AdvReac Unknown HEARTBURN Verified 09/27/22 12:39 Review of Systems Review of Systems: Constitutional : No Weight loss, No Fever, No Chills ENT/Mouth :? No sore throat, No Rhinorrhea Eyes: No Eye Pain, No Swelling Cardiovascular : pos Chest Pain, no SOB, no Dyspnea on Exertion, No Orthopnea, No Edema, No Palpitations Respiratory : Positive Cough, No Sputum Gastrointestinal : No Nausea, No Vomiting, No Diarrhea, No abdominal Pain, No Hematochezia, No Melena Genitourinary : No Dysuria, No Urinary Frequency Musculoskeletal : No joint pain, No Myalgias, No Joint Swelling Skin : No Skin Lesions, No rash Neuro : No Weakness, No Numbness, No Dizziness, No Headache Psych : No Anxiety/Panic, No Depression Heme/Lymph: No Bruising, No Lymphadenopathy Endocrine : No Polyuria, No Polydipsia Yes all other systems are reviewed and are negative [facility]LY [facility], [facility] Past Medical History Attestation statement: The following information was validated with the patient. Source: old records reviewed Medical History Anemia Anxiety, generalized Asthma Chronic GERD Heavy menses Migraine headache Surgical History Hx of arthroscopic knee surgery No pertinent past surgical history Family History Family History Father No problems noted. Mother Arthritis Asthma Diabetes mellitus HTN (hypertension) Son No problems noted. Sister No problems noted. Sister No problems noted. Sister No problems noted. Brother Substance use disorder Brother Substance use disorder Brother Substance use disorder Brother No problems noted. Social History Social History Housing: House Are you a primary patient care manager to a significant other at home: No Do you presently have visiting nurse or other home services: No Alcohol intake: current Alcohol intake frequency: a few times a month Patient Tobacco Use Status: Current everyday Tobacco user Cigarettes Per Day: 1 Years Smoked: 20 Smoked in Last 30 Days: Yes e-Cigarette/Vaping Use: Never Used Second Hand Smoke Exposure: No Use of substances other than those prescribed or required for medical reasons: No Advance Directives: No Advance Directives Information Provided: No Current occupational status: employed Sexual orientation: Straight/Heterosexual Gender identity: Female Cognitive needs: No Hearing needs: No Vision needs: No Physical Exam Vital Signs: Vital Signs: Last Vital Signs Temp 98.4 F 09/27/22 12:35 Pulse 82 09/27/22 12:35 Resp 20 09/27/22 12:35 BP 109/63 09/27/22 12:35 Pulse Ox 95 09/27/22 12:35 O2 Del Method 09/27/22 12:35 BMI result Body Mass Index 29.9 Appearance: Alert.?Oriented to person, place and time. No acute distress.?Normal affect. Eyes: Pupils equal, round and reactive to light.? ENT: Pharynx normal.?? Neck: Normal inspection.? Neck supple.?? CVS: Heart sounds normal. Normal heart rate and rhythm.? Pulses normal.?? Respiratory: No respiratory distress.? Lung sounds clear to auscultation bilaterally. Tenderness upon palpation over left anterior chest wall.?? Abdomen: Soft and non-tender. Normoactive bowel sounds. No pulsatile mass.?? Skin: Skin warm and dry.? Normal skin color.? Extremities: No lower extremity edema.? No calf ttp? Neuro: Moves all extremities spontaneously. Sensation intact bilaterally. No focal neuro deficits. Ambulates with normal steady gait. Course Course Course Narrative: 14:05 - Troponin <3.5, EKG reveals normal sinus rhythm, no acute ischemic findings, no risk factors, spoke with patient and she declines delta troponin, would like to be discharged at this time, does not seem consistent with ACS. CBC and CMP are otherwise overall unremarkable. Pain seems most consistent with musculoskeletal nature. Discussed these findings with patient. Advised rest, Tylenol/NSAIDs for pain, reviewed worrisome signs and symptoms that would warrant re-evaluation and return to the emergency department, otherwise outpatient follow-up with primary care provider within 2 days. All questions answered. She was discharged in stable condition. Medical Decision Making Medical Decision Making [facility] Narrative: Patient is a 52-year-old female with a past medical history of anemia, anxiety, asthma, GERD, migraines presenting to the emergency department for evaluation of chest pain. Will obtain CBC to evaluate for leukocytosis/ anemia, CMP to evaluate for abnormal electrolytes /abnormal renal function/ abnormal hepatic function, EKG and troponin to evaluate for ischemia/ACS. Chest x-ray to evaluate for consolidation/ infiltrate/ mass/ pulmonary congestion and Urinalysis. PERC negative, unlikely PE. HEART score 1, low risk. Differential Diagnosis Differential Diagnoses: The differential diagnosis associated with the presentation includes (ACS, pneumonia, pleural effusion, pulmonary embolism, costochondritis.) Lab Data [facility] Lab Attestation statement: I reviewed the patient's lab results. Result Diagrams: 09/27/22 13:18 09/27/22 13:18 Labs: Lab Results 09/27/22 09/27/22 09/27/22 Range/Units 13:18 13:18 13:18 WBC 10.3 (4.8-10.8) X10*3/uL RBC 4.53 (4.20-5.50) X10*6/uL Hgb 12.6 (12.0-16.0) g/dl Hct 39.8 (37.0-47.0) % MCV 87.9 (80.0-98.0) fL MCH 27.8 (27.0-33.0) pg MCHC 31.7 (31.0-35.0) g/dl RDW 12.4 (11.0-16.0) % Plt Count 272 (160-400) X10*3/uL MPV 9.3 L (9.4-12.3) fL Immature Gran % (Auto) 0.3 (0.0-0.4) % Neut % (Auto) 54.5 (45-73) % Lymph % (Auto) 33.7 (20-40) % [place] % (Auto) 6.6 (2-11) % Eos % (Auto) 4.2 H (0-4) % Baso % (Auto) 0.7 (0-2) % Lymph # (Auto) 3.5 (1.2-4.9) X10*3/uL [place] # (Auto) 0.7 (0.1-1.2) X10*3/uL Eos # (Auto) 0.4 (0.0-0.4) X10*3/uL Baso # (Auto) 0.1 (0.0-0.2) X10*3/uL Abs Immat Gran (auto) 0.03 (0.00-0.03) X10*3/uL Absolute Neuts (auto) 5.6 (2.0-8.3) x10*3/uL Absolute Nucleated RBC 0.000 (0.0-0.012) X10*3/uL Nucleated RBC % (auto) 0.0 (0.0-0.2) /100WBC Sodium 138 (135-145) mmol/L Potassium 4.1 (3.3-5.1) mmol/L Chloride 105 (96-108) mmol/L Carbon Dioxide 24 (22-29) mmol/L Anion Gap 13 (12-20) BUN 17 H (9-16) mg/dL Creatinine 0.69 (0.5-1.4) mg/dL Estim Creat Clear Calc 100.6 Estimated GFR > 60 Random Glucose 90 (60-115) mg/dL Calcium 9.4 (8.4-10.2) mg/dL Total Bilirubin 0.2 (0.0-1.0) mg/dL AST 22 (5-31) U/L ALT 25 (0-31) U/L Alkaline Phosphatase 86 (39-117) U/L Troponin I High Sens < 3.5 (<3.5-17.0) ng/L B-Natriuretic Peptide (<100) pg/mL Total Protein 7.1 (6.5-8.0) g/dL Albumin 4.0 (3.5-5.0) g/dL COVID-19 (TIMMY) (Negative) COVID-19 Clin Com 09/27/22 09/27/22 Range/Units 13:18 13:21 WBC (4.8-10.8) X10*3/uL RBC (4.20-5.50) X10*6/uL Hgb (12.0-16.0) g/dl Hct (37.0-47.0) % MCV (80.0-98.0) fL MCH (27.0-33.0) pg MCHC (31.0-35.0) g/dl RDW (11.0-16.0) % Plt Count (160-400) X10*3/uL MPV (9.4-12.3) fL Immature Gran % (Auto) (0.0-0.4) % Neut % (Auto) (45-73) % Lymph % (Auto) (20-40) % [place] % (Auto) (2-11) % Eos % (Auto) (0-4) % Baso % (Auto) (0-2) % Lymph # (Auto) (1.2-4.9) X10*3/uL [place] # (Auto) (0.1-1.2) X10*3/uL Eos # (Auto) (0.0-0.4) X10*3/uL Baso # (Auto) (0.0-0.2) X10*3/uL Abs Immat Gran (auto) (0.00-0.03) X10*3/uL Absolute Neuts (auto) (2.0-8.3) x10*3/uL Absolute Nucleated RBC (0.0-0.012) X10*3/uL Nucleated RBC % (auto) (0.0-0.2) /100WBC Sodium (135-145) mmol/L Potassium (3.3-5.1) mmol/L Chloride (96-108) mmol/L Carbon Dioxide (22-29) mmol/L Anion Gap (12-20) BUN (9-16) mg/dL Creatinine (0.5-1.4) mg/dL Estim Creat Clear Calc Estimated GFR Random Glucose (60-115) mg/dL Calcium (8.4-10.2) mg/dL Total Bilirubin (0.0-1.0) mg/dL AST (5-31) U/L ALT (0-31) U/L Alkaline Phosphatase (39-117) U/L Troponin I High Sens (<3.5-17.0) ng/L B-Natriuretic Peptide 22 (<100) pg/mL Total Protein (6.5-8.0) g/dL Albumin (3.5-5.0) g/dL COVID-19 (TIMMY) Negative (Negative) COVID-19 Clin Com See Note Independent Interpretation I performed an independent interpretation of an: EKG and Plain X-Ray (Chest) Interpretation: EKG: Rate: 74 Rhythm:? Normal sinus rhythm [place]:? Normal Normal P waves.? Normal MONO.?? Normal QRS complex.?? ST T wave :??No ST elevation, no ST depression. T-wave inversion in lead III, noted on prior EKG as well, not new. qTC: 428 prior studies:? January 2020 The study has been interpreted contemporaneously by me. Chest x-ray: No infiltrate/consolidations, no pleural effusion, no pneumothorax Radiology Impression Discussion of test interpretation with radiology: I have reviewed the radiologist's reading. Radiologist Impression: XR/XR chest 2V IMPRESSION: Unremarkable examination. Tests considered The following testing was considered but not selected: Considered CT angio of the chest to evaluate for pulmonary embolism, however PERC score negative, low suspicion for pulmonary embolism at this time, therefore deferred. Discharge Plan Discharge Clinical Impression: Acute costochondritis Patient Disposition: Home, Self-Care Instructions: Costochondritis (ED) Prescriptions: No Action ondansetron HCl 8 mg tablet 8 mg PO ONCE PRN (Reason: nausea and vomiting) 30 Days Qty: 30 3RF sumatriptan succinate 50 mg tablet 50 mg PO ONCE PRN (Reason: for headache) 30 Days Qty: 14 5RF topiramate 50 mg tablet 50 mg PO DAILY Qty: 30 2RF ferrous sulfate 325 mg (65 mg iron) tablet 325 mg PO BID Qty: 60 11RF albuterol sulfate 90 mcg/actuation HFA aerosol inhaler 2 inh inhalation Q4-6H PRN (Reason: bronchospasm) 30 Days Qty: 18 3RF budesonide-formoterol 160-4.5 mcg/actuation HFA aerosol inhaler 2 puff PO BID 30 Days Qty: 1 2RF omeprazole 20 mg capsule,delayed release(DR/EC) 20 mg PO DAILY 90 Days Qty: 90 0RF buspirone 5 mg tablet 5 mg PO BID PRN (Reason: anxiety) 30 Days Qty: 60 2RF fluoxetine 10 mg capsule 10 mg PO DAILY 90 Days Qty: 90 0RF fluticasone propionate 50 mcg/actuation spray,suspension 1 spray intranasal BID 30 Days Qty: 15.8 5RF montelukast 10 mg tablet 10 mg PO DAILY 30 Days Qty: 90 0RF hydroxyzine HCl 50 mg tablet 50 mg PO BEDTIME PRN (Reason: sleep) 30 Days Qty: 30 0RF Rx Instructions: Take half or full tablet at bedtime as needed acetaminophen [Tylenol 8 Hour] 650 mg tablet extended release 650 mg PO Q8H PRN (Reason: pain) Qty: 60 1RF ibuprofen 600 mg tablet 600 mg PO Q6H PRN (Reason: pain) Qty: 60 0RF cetirizine [Zyrtec] 10 mg tablet 10 mg PO DAILY PRN (Reason: allergy symptoms) 90 Days Qty: 90 0RF prednisone 10 mg tablet 10 mg PO DAILY 7 Days Qty: 7 0RF Referrals: Cyndi Carter MD [Primary Care Provider] - Stand Alone Forms: Work/School Release Interventions: ED Discharge Assessment Last Done: 09/27/22 15:45 Discharge Date/Time: 09/27/22 15:46
[2022-09-27 13:24] LABS: MANUAL DIFF FLAG NO
[2022-09-27 13:26] LABS: Basophils Absolute Auto 0.1 X10*3/uL (0.0-0.2); Basophils Percent Auto 0.7 % (0-2); Eosinophils Absolute Auto 0.4 X10*3/uL (0.0-0.4); Eosinophils Percent Auto 4.2 % (0-4); Hematocrit 39.8 % (37.0-47.0); Hemoglobin 12.6 g/dl (12.0-16.0); Imm Gran Abs Auto 0.03 X10*3/uL (0.00-0.03); Imm Gran Pct Auto 0.3 % (0.0-0.4); Lymphocytes Absolute Auto 3.5 X10*3/uL (1.2-4.9); Lymphocytes Percent Auto 33.7 % (20-40); Mean Corpuscular HGB Conc 31.7 g/dl (31.0-35.0); Mean Corpuscular Hemoglobin 27.8 pg (27.0-33.0); Mean Corpuscular Volume 87.9 fL (80.0-98.0); Mean Platelet Volume 9.3 fL (9.4-12.3); Monocytes Absolute Auto 0.7 X10*3/uL (0.1-1.2); Monocytes Percent Auto 6.6 % (2-11); Neutrophils Absolute Auto 5.6 x10*3/uL (2.0-8.3); Neutrophils Percent Auto 54.5 % (45-73); Platelet Count 272 X10*3/uL (160-400); Red Blood Count 4.53 X10*6/uL (4.20-5.50); Red Cell Distribution Width 12.4 % (11.0-16.0); White Blood Count 10.3 X10*3/uL (4.8-10.8)
[2022-09-27 13:40] LABS: COVID-19 Test Negative (Negative)
--- NOTE | 2022-09-27 13:43 | PC.NURSE ---
pt a&ox3, vss, pt resting comfortably in bed, reporting 3/10 chest pain. lab results pending. no new orders at this time.
[2022-09-27 13:58] LABS: Troponin-I High Sensitivity < 3.5 ng/L (<3.5-17.0)
[2022-09-27 14:03] LABS: Alanine Aminotransferase 25 U/L (0-31); Alkaline Phosphatase 86 U/L (39-117); Anion Gap 13 (12-20); Aspartate Amino Transferase 22 U/L (5-31); Blood Urea Nitrogen 17 mg/dL (9-16); Calcium 9.4 mg/dL (8.4-10.2); Carbon Dioxide 24 mmol/L (22-29); Chloride 105 mmol/L (96-108); Creatinine Clr Calc Pharmacy 100.6; Estimated Glomerular Filt Rate > 60; Glucose Random 90 mg/dL (60-115); Potassium 4.1 mmol/L (3.3-5.1); Sodium 138 mmol/L (135-145); Total Protein 7.1 g/dL (6.5-8.0)
[2022-09-27 14:06] LABS: B Type Natriuretic Peptide 22 pg/mL (<100)
[2022-09-27 14:27] LABS: Bilirubin Total 0.2 mg/dL (0.0-1.0)
== END 2022-09-27 15:46 | disposition home or self-care (01) ==
PROVIDERS: Nurse Practitioner Family; Emergency Provider Student in an Organized Health Care Education/Training Program; PCP Internal Medicine
DX: M94.0 Chondrocostal junction syndrome [Tietze] (principal); Z20.822 Contact with and (suspected) exposure to COVID-19; F17.210 Nicotine dependence, cigarettes, uncomplicated
CPT/HCPCS: 36415; 71046; 80053; 83880; 84484; 85025; 87635; 93005; 99283; 99284

== ENCOUNTER 2023-03-21 09:50 | Emergency (ER) | payer OTHER, SELFPAY ==
--- NOTE | 2023-03-21 09:53 | ECG_ITS ---
Test Reason : cp Blood Pressure : / mmHG Vent. Rate : 092 BPM Atrial Rate : 092 BPM P-R Int : 136 ms QRS Dur : 088 ms QT Int : 352 ms P-R-T Axes : 032 -20 009 degrees QTc Int : 435 ms Normal sinus rhythm Possible Left atrial enlargement Minimal voltage criteria for LVH, may be normal variant ( R in aVL ) Abnormal ECG When compared with ECG of 27-SEP-2022 12:36, LVH present Referred By: Generic ED Physician Electronically Signed By:Diallo Menard
[2023-03-21 10:46] VITALS: BP 121/78; PULSE 85; RESP 16; TEMP 36.6; O2SAT 97; BMI 30.6
[2023-03-21 12:45] VITALS: BP 123/79; PULSE 75; RESP 17; TEMP 37; O2SAT 96
--- NOTE | 2023-03-21 13:09 | ED.ANXIETY ---
HPI - Anxiety General Chief Complaint: Anxiety Stated Complaint: chest pain Time Seen by Provider: 03/21/23 11:34 Source: patient and RN notes reviewed Mode of arrival: ambulatory Limitations: no limitations History of Present Illness HPI narrative: This is a 52-year-old female, with a past medical history of anxiety, presenting to the emergency department with complaints of chest tightness and shortness of breath which occurred while she was at work today. Patient reports that she has a very stressful job and has become frustrated with the staff there. She was in an argument when suddenly she developed some chest tightness and shortness of breath. She drove herself to the emergency department. Since arrival her symptoms have improved. she is states that she takes BuSpar for her anxiety however decided not to take this today. Patient denies any headaches, dizziness, blurred vision, numbness or tingling, weakness, palpitations, abdominal pain, nausea, vomiting or diarrhea. No other complaints or concerns at this time. MD complaint: anxiety Symptoms: dyspnea and chest pain ( Tightness) Quality: constant Place: work History of similar episodes: Yes Provoking factors: emotional stress and work/job stress Relieving factors: rest Exacerbating factors: thinking about event Associated symptoms: chest pain and shortness of breath Related Data Home Medications Medication Instructions Recorded Confirmed CPAP (CPAP Machine/Device) 09/28/22 Previous Rx's Medication Instructions Recorded ondansetron HCl 8 mg tablet 8 mg PO ONCE PRN nausea and 08/17/20 vomiting 30 days #30 tabs sumatriptan succinate 50 mg tablet 50 mg PO ONCE PRN for headache 30 10/05/20 days #14 tabs acetaminophen 650 mg 650 mg PO Q8H PRN pain #60 tabs 10/28/20 tablet,extended release (Tylenol 8 Hour) topiramate 50 mg tablet 50 mg PO DAILY #30 tabs 01/10/21 ferrous sulfate 325 mg (65 mg 325 mg PO BID #60 tabs 01/18/21 iron) tablet albuterol sulfate 90 mcg/actuation 2 inh inhalation Q4-6H PRN 09/05/21 aerosol inhaler bronchospasm 30 days #18 grams ibuprofen 600 mg tablet 600 mg PO Q6H PRN pain #60 tabs 02/17/22 buspirone 5 mg tablet 5 mg PO BID PRN anxiety 30 days 03/21/22 #60 tabs fluoxetine 10 mg capsule 10 mg PO DAILY 90 days #90 caps 03/21/22 prednisone 10 mg tablet 10 mg PO DAILY 7 days #7 tabs 08/11/22 omeprazole 20 mg capsule,delayed 20 mg PO DAILY 90 days #90 caps 01/23/23 release budesonide-formoterol HFA 160 2 puff PO BID 30 days #1 units 01/25/23 mcg-4.5 mcg/actuation aerosol inhaler cetirizine 10 mg tablet (Zyrtec) 10 mg PO DAILY PRN allergy 02/21/23 symptoms 90 days #90 tabs hydroxyzine HCl 50 mg tablet 50 mg PO BEDTIME PRN sleep 30 days 02/21/23 #30 tabs montelukast 10 mg tablet 10 mg PO DAILY 90 days #90 tabs 02/21/23 fluticasone propionate 50 1 spray intranasal BID 30 days 02/26/23 mcg/actuation nasal #15.8 mL spray,suspension hydroxyzine HCl 25 mg tablet 25 mg PO QID PRN anxiety #20 tabs 03/21/23 Allergies Allergy/AdvReac Type Severity Reaction Status Date / Time peanut Allergy Severe Hives Verified 09/28/22 08:52 seafood Allergy Unknown hives, Verified 09/28/22 08:52 throat feels like it is closing ibuprofen [IBUPROFEN] AdvReac Unknown HEARTBURN Verified 09/28/22 08:52 Review of Systems Review of Systems: General: Awake, alert, and oriented X3. No acute distress. HEENT: Normal inspection CVS: Normal heart rate and rhythm. Pulses normal. S1-S2 regular. Tenderness to palpation along the anterior chest wall. Respiratory: No respiratory distress, Lungs clear to auscultation bilaterally Skin: Warm, dry, no rashes noted to exposed skin. Normal skin color. Normal skin turgor. Extremities: Normal inspection Neuro: Oriented X 3. No motor deficit. No sensory deficit. [facility] Past Medical History Medical History Anemia Anxiety, generalized Asthma Chronic GERD Heavy menses Migraine headache Surgical History Hx of arthroscopic knee surgery No pertinent past surgical history Family History Family History Father No problems noted. Mother Arthritis Asthma Diabetes mellitus HTN (hypertension) Son No problems noted. Sister No problems noted. Sister No problems noted. Sister No problems noted. Brother Substance use disorder Brother Substance use disorder Brother Substance use disorder Brother No problems noted. Social History Social History Housing: House Are you a primary respiratory care program director to a significant other at home: No Do you presently have visiting nurse or other home services: No Alcohol intake: current Alcohol intake frequency: a few times a month Patient Tobacco Use Status: Current everyday Tobacco user Cigarettes Per Day: 1 Years Smoked: 20 e-Cigarette/Vaping Use: Never Used Second Hand Smoke Exposure: No Advance Directives: No Current occupational status: employed Sexual orientation: Straight/Heterosexual Gender identity: Female Cognitive needs: No Hearing needs: No Vision needs: No Physical Exam Vital Signs: Vital Signs: Last Vital Signs Temp 98.6 F 03/21/23 12:45 Pulse 75 03/21/23 12:45 Resp 17 03/21/23 12:45 BP 123/79 03/21/23 12:45 Pulse Ox 96 03/21/23 12:45 O2 Del Method Room Air 03/21/23 12:45 BMI result Body Mass Index 30.6 Medical Decision Making Medical Decision Making MDM Narrative: 52-year-old female presenting to the emergency department for evaluation chest tightness and shortness of breath which occurred while at work. She states that her symptoms feel exactly like her anxiety in the past. EKG performed and was very similar to previous EKGs performed. I advised patient that in order to rule out a cardiac event we would have to get blood drawn however patient refused to do so as she is certain that her symptoms are likely due to anxiety due to stress at work. I advised patient that I am unable to rule out whether not this was a cardiac event without that. She understands and will return if her symptoms worsen. Patient has a history of hypertension and hyperlipidemia. Denies history of cardiac events, reports multiple cardiac events in her family. Vital signs stable. patient discharged on a script for hydroxyzine given strict return precautions if any new or worsening symptoms occur. Differential Diagnosis Differential Diagnoses: The differential diagnosis associated with the presentation includes Anxiety, depression, panic attack, ACS Independent Interpretation I performed an independent interpretation of an: EKG Interpretation: normal sinus rhythm at a ventricular rate of 92 beats per minute. no ST elevation or depression. has in the inverted T in P waves seen in V1. Seen in previous EKGs. Discharge Plan Discharge Clinical Impression: Chest pain, Anxiety Patient Disposition: Home, Self-Care Instructions: Chest Pain (ED), Anxiety (ED) Additional Instructions: Your symptoms are likely due to anxiety however you refused blood work today so we were unable to determine whether or not your symptoms are cardiac related. Please take prescribed medication as directed. If any new or worsening symptoms occur including worsening chest pain, shortness breath, palpitations, please return for re-evaluation Prescriptions: New hydroxyzine HCl 25 mg tablet 25 mg PO QID PRN (Reason: anxiety) Qty: 20 0RF No Action ondansetron HCl 8 mg tablet 8 mg PO ONCE PRN (Reason: nausea and vomiting) 30 Days Qty: 30 3RF sumatriptan succinate 50 mg tablet 50 mg PO ONCE PRN (Reason: for headache) 30 Days Qty: 14 5RF topiramate 50 mg tablet 50 mg PO DAILY Qty: 30 2RF ferrous sulfate 325 mg (65 mg iron) tablet 325 mg PO BID Qty: 60 11RF albuterol sulfate 90 mcg/actuation HFA aerosol inhaler 2 inh inhalation Q4-6H PRN (Reason: bronchospasm) 30 Days Qty: 18 3RF buspirone 5 mg tablet 5 mg PO BID PRN (Reason: anxiety) 30 Days Qty: 60 2RF fluoxetine 10 mg capsule 10 mg PO DAILY 90 Days Qty: 90 0RF omeprazole 20 mg capsule,delayed release(DR/EC) 20 mg PO DAILY 90 Days Qty: 90 0RF budesonide-formoterol 160-4.5 mcg/actuation HFA aerosol inhaler 2 puff PO BID 30 Days Qty: 1 0RF hydroxyzine HCl 50 mg tablet 50 mg PO BEDTIME PRN (Reason: sleep) 30 Days Qty: 30 0RF Rx Instructions: Take half or full tablet at bedtime as needed cetirizine [Zyrtec] 10 mg tablet 10 mg PO DAILY PRN (Reason: allergy symptoms) 90 Days Qty: 90 0RF montelukast 10 mg tablet 10 mg PO DAILY 90 Days Qty: 90 0RF fluticasone propionate 50 mcg/actuation spray,suspension 1 spray intranasal BID 30 Days Qty: 15.8 5RF acetaminophen [Tylenol 8 Hour] 650 mg tablet extended release 650 mg PO Q8H PRN (Reason: pain) Qty: 60 1RF ibuprofen 600 mg tablet 600 mg PO Q6H PRN (Reason: pain) Qty: 60 0RF prednisone 10 mg tablet 10 mg PO DAILY 7 Days Qty: 7 0RF (DME) CPAP Machine/Device Device See Rx Instructions .ROUTE Rx Instructions: As directed Stand Alone Forms: Work/School Release Interventions: ED Discharge Assessment Last Done: 03/21/23 13:25 Discharge Date/Time: 03/21/23 13:26
== END 2023-03-21 13:26 | disposition home or self-care (01) ==
PROVIDERS: Emergency Provider Internal Medicine; PCP Internal Medicine
DX: R07.9 Chest pain, unspecified (principal); F41.9 Anxiety disorder, unspecified; Z79.899 Other long term (current) drug therapy
CPT/HCPCS: 93005; 99283

== ENCOUNTER 2023-07-10 11:17 | Outpatient (AMB) | payer OTHER, SELFPAY ==
[2023-07-10 11:18] VITALS: BP 130/72; PULSE 74; TEMP 36.6; O2SAT 98; BMI 31.1
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
== END 2023-07-10 11:41 | disposition home or self-care (01) ==
PROVIDERS: PCP Internal Medicine; Visit Provider Internal Medicine
DX: M54.50 Low back pain, unspecified (principal); Z04.3 Encounter for examination and observation following other accident
CPT/HCPCS: 99213

== ENCOUNTER 2023-08-17 08:12 | Outpatient (AMB) | payer OTHER, SELFPAY ==
--- NOTE | 2023-08-17 08:13 | MHC.PC.OV ---
Vital Signs 08/17/23 08:15 Height 5 ft 4 in Weight 189 lb BMI 32.4 BP 130/80 Blood Pressure Location Lt brachial Position Sitting Pulse 88 Pulse Source Pulse Oximeter Pulse Oximetry (%) 99 Oxygen Delivery Method Room Air Intake Visit Reasons: PE Allergies peanut Allergy (Severe, Verified 08/17/23 08:15) Hives seafood Allergy (Unknown, Verified 08/17/23 08:15) hives, throat feels like it is closing ibuprofen [IBUPROFEN] Adverse Reaction (Unknown, Verified 08/17/23 08:15) HEARTBURN Medication List - Last Reconciled 08/17/23 by Cyndi Carter MD albuterol sulfate 90 mcg/actuation 2 inhalations inhalation Q4-6H PRN 30 days budesonide-formoterol 160-4.5 mcg/actuation 2 puffs PO BID 30 days cetirizine (Zyrtec) 10 mg PO DAILY PRN 90 days CPAP (CPAP Machine/Device) As directed ferrous sulfate 325 mg PO BID fluticasone propionate 50 mcg/actuation 1 spray intranasal BID 30 days hydroxyzine HCl 25 mg PO BEDTIME PRN omeprazole 20 mg PO DAILY 90 days topiramate 50 mg PO DAILY Tobacco use date assessed: 08/17/23 Dental Screening Dental Screen Date: 08/17/23 Did you have a dental visit in the last 12 months?: Yes Did you have a dental problem in the last 6 months where you did not have access to dental care?: No Was dental information given to patient?: Patient has dentist HPI PE HPI Details Patient is a 53-year-old female came in today for physical examination Patient is due for mammogram Due for Pap smear Due for colonoscopy And due for labs She is currently dealing with severe depression as she does not have a place to live and she is temporarily living in some once rented room. She will be meeting with our behavior health coordinator for assistance Meanwhile I am starting her on Lexapro 5 mg We will set up a telephone visit in 3 weeks to follow-up on that She has also started smoking because of stress Patient says that she is trying to quit cut down She has moderate persistent asthma which is stable at this time However she is complaining of sinus congestion She has also developed of parotitis right side for the past few days Having difficulty chewing On oral examination she does not have any tooth decay to cause that swelling. I have sent Augmentin for the patient she is to take that for 10 days [facility] Medical History Anemia Heavy menses Chronic GERD Migraine headache Anxiety, generalized Asthma Surgical History Hx of arthroscopic knee surgery No pertinent past surgical history Family History Father No problems noted. Mother Arthritis Asthma Diabetes mellitus HTN (hypertension) Son No problems noted. Sister No problems noted. Sister No problems noted. Sister No problems noted. Brother Substance use disorder Brother Substance use disorder Brother Substance use disorder Brother No problems noted. Social History Housing: House Are you a primary infant caregiver to a significant other at home: No Do you presently have visiting nurse or other home services: No Alcohol intake: current Alcohol intake frequency: a few times a month Patient Tobacco Use Status: Current everyday Tobacco user Cigarettes Per Day: 1 Years Smoked: 20 e-Cigarette/Vaping Use: Never Used Second Hand Smoke Exposure: No Current occupational status: employed Sexual orientation: Straight/Heterosexual Gender identity: Female Cognitive needs: No Hearing needs: No Vision needs: Yes Female Reproductive History Menstrual Age of Menarche: 15 Questionnaire PHQ-9 Over the last 2 weeks, how often have you been bothered by any of the following problems? 1. Little interest or pleasure in doing things: nearly every day 2. Feeling down, depressed, or hopeless: nearly every day 3. Trouble falling or staying asleep, or sleeping too much: nearly every day 4. Feeling tired or having little energy: nearly every day 5. Poor appetite or overeating: more than half the days 6. Feeling bad about yourself - or that you are a failure or have let yourself or your family down: several days 7. Trouble concentrating on things, such as reading the newspaper or watching television: several days 8. Moving or speaking so slowly that other people could have noticed. Or the opposite - being so fidgety or restless that you have been moving around a lot more than usual: more than half the days 9. Thoughts that you would be better off or of hurting yourself in some way: several days Total score: 19 Depression Screening Interpretation: Positive Depression Screening Follow-up: In treatment, New Medication prescribed and Community Mental Health Worker F/U Depression Screening Done: Yes 97619 - PHQ-9 Billing: Yes Source: Developed by Drs. Hamilton Luciano, Nawaf Muñoz and colleagues, with an educational marysol from [employer]. Thrive Questionnaire Date Thrive assessed: 08/17/23 I am a: Patient What is your living situation today?: I do not have a steady places to live Within the past 12 months, did the food you bought not last and you didn't have the money to get more?: Never true Within the past 12 months, did you worry whether your food would run out before you got money to buy more?: Never true Do you have trouble paying for medicines?: No Do you have trouble getting transportation to medical appointments?: No Do you have trouble paying your heating and electricity bill?: No Do you have trouble taking care of your child, family member or friend?: No Do you have trouble with day-to-day activities such as bathing, preparing meals, shopping, managing finances, etc.?: No Are you currently unemployed and looking for a job?: No Are you interested in more education?: Yes Please select the resources that you would like help with: Housing/Intermediate Currently or been in a relationship where the following occur: no concerns reported CELSA-7 AMB Questionnaire CELSA-7 Date CELSA - 7 assessed: 08/17/23 Feeling nervous, anxious, or on edge: 2 = More than half the days Not being able to stop or control worryin = More than half the days Worrying too much about different things: 2 = More than half the days Trouble relaxin = More than half the days Being so restless that it is hard to sit still: 2 = More than half the days Becoming easily annoyed or irritable: 3 = Nearly every day Feeling afraid as if something awful might happen: 1 = Several days Total CELSA-7 score (0-4 normal; 5-9 mild; 10-14 moderate; 15-21 severe): 14 Source: Developed by Kirsten Prieto Kurt Kroenke and colleagues, with an educational marysol from [employer]. CELSA-7 Assessment Billing CELSA-7 Assessment Tool: CELSA-7 Assessment 95092 Review of Systems Const Denies chills and Denies fever(s) Eyes Denies blurry vision ENT Denies nasal discharge and Denies nasal obstruction Card Denies chest pain at rest and Denies chest pain with activity Resp Denies cough and Denies hemoptysis GI Denies diarrhea, Denies vomiting and Denies hematemesis Reports as per HPI Musc Denies abnormal gait Skin/Breast Reports as per HPI Neuro Denies Neuro-related abnormal movements, Denies Abnormal speech present, Denies abnormal gait and Denies Sensory deficit (Neuro) Psych Denies mood swings and Denies paranoia Endo Reports as per HPI Patrice/Lymph Reports as per HPI Aller/Immun Reports as per HPI Physical exam (Primary Care) Vital Signs: Last Vital Signs Pulse 88 08/17/23 08:15 BP 130/80 08/17/23 08:15 Pulse Ox 99 08/17/23 08:15 Oxygen Delivery Method Room Air 08/17/23 08:15 BMI result Body Mass Index 32.4 Tobacco/Smoking Status: Tobacco use Status Tobacco use date assessed 08/17/23 08/17/23 08:17 Patient Tobacco Use Status Current everyday Tobacco 08/17/23 08:14 e-Cigarette/Vaping Use Never Used 08/17/23 08:14 Are you ready to quit: Yes Tobacco cessation counseling provided: Yes Relapse Prevention: discussed the importance of a supportive environment Number of minutes spent counselin CPT code: 68796 - 4-10 Minutes PHQ-9: PHQ-9 Score PHQ-9: Total score 19 08/17/23 10:15 Depression Screening Interpretation: Positive Depression Screening Follow-up: In treatment, New Medication prescribed and Community Mental Health Worker F/U Thrive Assessment: Date of Thrive Assessment Date Thrive assessed 08/17/23 08/17/23 09:17 Currently or been in a relationship where the following occur: no concerns reported Const General: cooperative, comfortable and no acute distress Orientation/consciousness: patient oriented x3 HENMT Head: Yes normocephalic and Yes atraumatic Head images: 1. Tender swelling Eyes General: appearance normal, both eyes and all related structures Pupils: Equal, round and reactive pupils present EOM: EOMs intact bilaterally Neck Neck: Yes supple and No lymphadenopathy Thyroid: Thyroid normal Lymphatic: no lymphadenopathy noted Resp Effort & Inspection: normal respiratory effort and able to speak in complete sentences Auscultation: clear to auscultation bilaterally Cardio Heart sounds: S1 normal heart sound present and S2 normal heart sound present GI Palpation (GI): Soft to palpation and nontender Auscultation: normal bowel sounds General: Yes no CVA tenderness Back/Spine/Pelvis Back: no CVA tenderness Skin General skin exam: elasticity normal and turgor normal Neuro General: patient oriented x3 and gait normal Cranial nerves: Yes Equal, round and reactive pupils present Speech: No Abnormal speech present Sensory Exam: No Sensory deficit (Neuro) Coordination: tandem gait normal and Romberg test negative Extrem General: Yes normal exam except as noted and No edema Assessment and Plan Assessment & Plan (1) Encounter for general adult medical examination with abnormal findings: Code(s): Z00.01 - Encounter for general adult medical examination with abnormal findings (2) Parotitis, acute: Code(s): K11.21 - Acute sialoadenitis (3) Difficulty sleeping: Code(s): G47.9 - Sleep disorder, unspecified (4) Major depression, recurrent: Code(s): F33.9 - Major depressive disorder, recurrent, unspecified Qualifiers: Active/Remission status: currently active Major depression episode severity: severe Psychotic features: without psychotic features Qualified Code(s): F33.2 - Major depressive disorder, recurrent severe without psychotic features (5) Homeless: Code(s): Z59.00 - Homelessness unspecified (6) Asthma, moderate persistent: Code(s): J45.40 - Moderate persistent asthma, uncomplicated Qualifiers: Asthma complication type: uncomplicated Qualified Code(s): J45.40 - Moderate persistent asthma, uncomplicated (7) Obesity due to excess calories: Code(s): E66.09 - Other obesity due to excess calories Qualifiers: Body mass index: BMI 32.0-32.9 Obesity classification: adult class 1 (BMI 30 - 34.9) Serious obesity comorbidity presence: with serious comorbidity Qualified Code(s): E66.09 - Other obesity due to excess calories; Z68.32 - Body mass index [BMI] 32.0-32.9, adult (8) Environmental allergies: Code(s): Z91.09 - Other allergy status, other than to drugs and biological substances (9) Chronic GERD: Code(s): K21.9 - Gastro-esophageal reflux disease without esophagitis (10) Migraine headache: Code(s): G43.909 - Migraine, unspecified, not intractable, without status migrainosus Qualifiers: Intractability: not intractable Migraine type: with aura Status migrainosus presence: without status migrainosus Qualified Code(s): G43.109 - Migraine with aura, not intractable, without status migrainosus (11) Anxiety, generalized: Code(s): F41.1 - Generalized anxiety disorder (12) Tobacco abuse: Code(s): Z72.0 - Tobacco use (13) Colon cancer screening: Code(s): Z12.11 - Encounter for screening for malignant neoplasm of colon (14) Maxillary sinusitis, acute: Code(s): J01.00 - Acute maxillary sinusitis, unspecified Qualifiers: Recurrence: non-recurrent Qualified Code(s): J01.00 - Acute maxillary sinusitis, unspecified Plan Patient is a 53-year-old female came in today for physical examination Patient is due for mammogram Due for Pap smear Due for colonoscopy And due for labs She is currently dealing with severe depression as she does not have a place to live and she is temporarily living in some once rented room. She will be meeting with our behavior health coordinator for assistance Meanwhile I am starting her on Lexapro 5 mg We will set up a telephone visit in 3 weeks to follow-up on that She has also started smoking because of stress Patient says that she is trying to quit cut down She has moderate persistent asthma which is stable at this time However she is complaining of sinus congestion She has also developed of parotitis right side for the past few days Having difficulty chewing On oral examination she does not have any tooth decay to cause that swelling. I have sent Augmentin for the patient she is to take that for 10 days Orders: Orders Complete Blood Count Auto Diff Today E66.09 - Other obesity due to excess calories, F33.9 - Major depressive disorder, recurrent, unspecified, F41.1 - Generalized anxiety disorder, G43.909 - Migraine, unspecified, not intractable, without status migrainosus, G47.9 - Sleep disorder, unspecified, J45.40 - Moderate persistent asthma, uncomplicated, K21.9 - Gastro-esophageal reflux disease without esophagitis, Z00.01 - Encounter for general adult medical examination with abnormal findings, Z72.0 - Tobacco use, Z91.09 - Other allergy status, other than to drugs and biological substances LDL Cholesterol Direct Today E66.09 - Other obesity due to excess calories, F33.9 - Major depressive disorder, recurrent, unspecified, F41.1 - Generalized anxiety disorder, G43.909 - Migraine, unspecified, not intractable, without status migrainosus, G47.9 - Sleep disorder, unspecified, J45.40 - Moderate persistent asthma, uncomplicated, K21.9 - Gastro-esophageal reflux disease without esophagitis, Z00.01 - Encounter for general adult medical examination with abnormal findings, Z72.0 - Tobacco use, Z91.09 - Other allergy status, other than to drugs and biological substances TSH reflex Free T4 Today E66.09 - Other obesity due to excess calories, F33.9 - Major depressive disorder, recurrent, unspecified, F41.1 - Generalized anxiety disorder, G43.909 - Migraine, unspecified, not intractable, without status migrainosus, G47.9 - Sleep disorder, unspecified, J45.40 - Moderate persistent asthma, uncomplicated, K21.9 - Gastro-esophageal reflux disease without esophagitis, Z00.01 - Encounter for general adult medical examination with abnormal findings, Z72.0 - Tobacco use, Z91.09 - Other allergy status, other than to drugs and biological substances Comprehensive Met. Panel Today E66.09 - Other obesity due to excess calories, F33.9 - Major depressive disorder, recurrent, unspecified, F41.1 - Generalized anxiety disorder, G43.909 - Migraine, unspecified, not intractable, without status migrainosus, G47.9 - Sleep disorder, unspecified, J45.40 - Moderate persistent asthma, uncomplicated, K21.9 - Gastro-esophageal reflux disease without esophagitis, Z00.01 - Encounter for general adult medical examination with abnormal findings, Z72.0 - Tobacco use, Z91.09 - Other allergy status, other than to drugs and biological substances Vitamin D 25-OH (D2 and D3) Today E66.09 - Other obesity due to excess calories, F33.9 - Major depressive disorder, recurrent, unspecified, F41.1 - Generalized anxiety disorder, G43.909 - Migraine, unspecified, not intractable, without status migrainosus, G47.9 - Sleep disorder, unspecified, J45.40 - Moderate persistent asthma, uncomplicated, K21.9 - Gastro-esophageal reflux disease without esophagitis, Z00.01 - Encounter for general adult medical examination with abnormal findings, Z72.0 - Tobacco use, Z91.09 - Other allergy status, other than to drugs and biological substances MM tomosynthesis screen imp RT Today Z12.31 - Encounter for screening mammogram for malignant neoplasm of breast Referrals LINE ASSIGNER Referral Z01.419 - Encounter for gynecological examination (general) (routine) without abnormal findings Gastroenterology Referral Z12.11 - Encounter for screening for malignant neoplasm of colon Medications: New escitalopram oxalate (Lexapro) 5 mg PO .Q.h.s. 30 tabs 0RF Depression amoxicillin-pot clavulanate 875-125 mg 1 tab PO BID 20 tabs 0RF 10 days Changed From hydroxyzine HCl 25 mg PO QID PRN 20 tabs 0RF anxiety To hydroxyzine HCl 25 mg PO BEDTIME PRN 90 tabs 1RF anxiety Coding Level of Care Code Est Pt Prev Care 40-64y(91434) Diagnoses Encounter for general adult medical examination with abnormal findings Z00.01 Parotitis, acute K11.21 Difficulty sleeping G47.9 Severe episode of recurrent major depressive disorder, without psychotic features F33.2 Active/Remission status: currently active Major depression episode severity: severe Psychotic features: without psychotic features Homeless Z59.00 Moderate persistent asthma without complication J45.40 Asthma complication type: uncomplicated Class 1 obesity due to excess calories with serious comorbidity and body mass index (BMI) of 32.0 to 32.9 in adult E66.09; Z68.32 Body mass index: BMI 32.0-32.9 Obesity classification: adult class 1 (BMI 30 - 34.9) Serious obesity comorbidity presence: with serious comorbidity Environmental allergies Z91.09 Chronic GERD K21.9 Migraine with aura and without status migrainosus, not intractable G43.109 Intractability: not intractable Migraine type: with aura Status migrainosus presence: without status migrainosus Anxiety, generalized F41.1 Tobacco abuse Z72.0 Colon cancer screening Z12.11 Acute non-recurrent maxillary sinusitis J01.00 Recurrence: non-recurrent Additional Codes CELSA-7 Assessment Billing - CELSA-7 Assessment Tool: CELSA-7 Assessment 67482 ([id number]) Vital Signs *Quality* - CPT code: 61788 - 4-10 Minutes ([id number])
[2023-08-17 08:15] VITALS: BP 130/80; PULSE 88; O2SAT 99; BMI 32.4
== END 2023-08-17 09:22 | disposition home or self-care (01) ==
PROVIDERS: PCP Internal Medicine; Visit Provider Internal Medicine
DX: F33.2 Major depressive disorder, recurrent severe without psychotic features (principal); F17.210 Nicotine dependence, cigarettes, uncomplicated
CPT/HCPCS: 96127; 99396; 99406

== ENCOUNTER 2023-08-23 08:44 | Outpatient (AMB) | payer OTHER, SELFPAY ==
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
== END 2023-08-23 10:31 | disposition home or self-care (01) ==
LOC: HO.HMGC 08:44
PROVIDERS: PCP Internal Medicine; Visit Provider Internal Medicine
DX: K11.21 Acute sialoadenitis (principal); G47.9 Sleep disorder, unspecified; F33.2 Major depressive disorder, recurrent severe without psychotic features; Z59.00 Homelessness unspecified; F41.1 Generalized anxiety disorder; F43.10 Post-traumatic stress disorder, unspecified
CPT/HCPCS: 99214

== ENCOUNTER 2023-08-24 16:47 | Emergency (ER) | payer OTHER, SELFPAY ==
--- NOTE | 2023-08-24 16:49 | ED_ITS ---
HPI - Allergic Reaction General Chief complaint: Allergic Reaction Stated complaint: Allergic reaction from med Time Seen by Provider: 08/24/23 16:50 Source: patient Mode of arrival: ambulatory Limitations: no limitations History of Present Illness HPI narrative: 53-year-old female history of PTSD, currently being treated for parotitis, depression, insomnia, anxiety, obesity, asthma presenting to the emergency de partment with sudden-onset shortness of breath, facial swelling, difficulty swallowing, redness to face that started just prior to arrival. Patient reports she recently started a new antibiotic that was prescribed to her by her primary care provider, for parotitis. Denies fevers, chills, palpitations, nausea, vomiting, abd pain Related Data Home Medications Medication Instructions Recorded Confirmed CPAP (CPAP Machine/Device) 09/28/22 08/23/23 Previous Rx's Medication Instructions Recorded topiramate 50 mg tablet 50 mg PO DAILY #30 tabs 01/10/21 ferrous sulfate 325 mg (65 mg 325 mg PO BID #60 tabs 01/18/21 iron) tablet albuterol sulfate 90 mcg/actuation 2 inh inhalation Q4-6H PRN 09/05/21 aerosol inhaler bronchospasm 30 days #18 grams fluticasone propionate 50 1 spray intranasal BID 30 days 02/26/23 mcg/actuation nasal #15.8 mL spray,suspension budesonide-formoterol HFA 160 2 puff PO BID 30 days #1 units 04/24/23 mcg-4.5 mcg/actuation aerosol inhaler cetirizine 10 mg tablet (Zyrtec) 10 mg PO DAILY PRN allergy 05/22/23 symptoms 90 days #90 tabs omeprazole 20 mg capsule,delayed 20 mg PO DAILY 90 days #90 caps 05/22/23 release amoxicillin 875 mg-potassium 1 tab PO BID 10 days #20 tabs 08/17/23 clavulanate 125 mg tablet doxycycline hyclate 100 mg capsule 100 mg PO BID 10 days #20 caps 08/23/23 hydroxyzine HCl 25 mg tablet 25 mg PO BEDTIME PRN anxiety #90 08/23/23 tabs oxycodone-acetaminophen 5 mg-325 1 tab PO BID PRN pain 7 days #14 08/23/23 mg tablet (Percocet) tabs cephalexin 500 mg tablet 500 mg PO Q6H 10 days #40 tabs 08/24/23 diphenhydramine HCl 25 mg capsule 25 mg PO TID PRN allergic reaction 08/24/23 (Benadryl) #20 caps epinephrine 0.3 mg/0.3 mL 0.3 mg (0.3 mL) IM Q4H PRN 08/24/23 injection, auto-injector (EpiPen anaphylaxis #2 ea 2-Emil) prednisone 50 mg tablet 50 mg PO DAILY 5 days #5 tabs 08/24/23 Allergies Allergy/AdvReac Type Severity Reaction Status Date / Time peanut Allergy Severe Hives Verified 08/24/23 16:50 seafood Allergy Unknown hives, Verified 08/24/23 16:50 throat feels like it is closing ibuprofen [IBUPROFEN] AdvReac Unknown HEARTBURN Verified 08/24/23 16:50 Review of Systems Review of Systems: Constitutional : No Weight loss, No Fever, No Chills, No Fatigue, No Malaise ENT/Mouth : No sore throat, No Rhinorrhea Eyes: No Eye Pain, No Swelling, No Redness Cardiovascular : No Chest Pain, + SOB, No Dyspnea on Exertion, No Orthopnea, No Edema, No Palpitations Respiratory : No Cough, No Sputum, No Wheezing Gastrointestinal : No Nausea, No Vomiting, No Diarrhea, No Constipation, No abdominal Pain, No Hematochezia, No Melena Genitourinary : No Dysuria, No Urinary Frequency, No Hematuria, Musculoskeletal : No joint pain, No Myalgias, No Joint Swelling Skin : No Skin Lesions, No rash Neuro : No Weakness, No Numbness, No Dizziness, No Headache Psych : No Anxiety/Panic, No Depression All other systems reviewed and are negative Yes all other systems are reviewed and are negative [facility] Past Medical History Attestation statement: The following information was validated with the patient. Source: old records reviewed and nursing notes reviewed Medical History Anemia Heavy menses Chronic GERD Migraine headache Anxiety, generalized Asthma Surgical History Hx of arthroscopic knee surgery No pertinent past surgical history Family History Family History Father No problems noted. Mother Arthritis Asthma Diabetes mellitus HTN (hypertension) Son No problems noted. Sister No problems noted. Sister No problems noted. Sister No problems noted. Brother Substance use disorder Brother Substance use disorder Brother Substance use disorder Brother No problems noted. Social History Social History Housing: House Are you a primary direct care professional to a significant other at home: No Do you presently have visiting nurse or other home services: No Alcohol intake: current Alcohol intake frequency: a few times a month Patient Tobacco Use Status: Current everyday Tobacco user Cigarettes Per Day: 1 Years Smoked: 20 e-Cigarette/Vaping Use: Never Used Second Hand Smoke Exposure: No Advance Directives: No Advance Directives Information Provided: No Current occupational status: employed Sexual orientation: Straight/Heterosexual Gender identity: Female Cognitive needs: No Hearing needs: No Vision needs: Yes Physical Exam ED Vital Signs: Vital Signs - 24 hr 08/24/23 16:50 Temperature 97.8 F Pulse Rate 89 Respiratory Rate 18 Blood Pressure 129/70 Pulse Oximetry 98 Oxygen Delivery Method Room Air BMI result Body Mass Index 28.8 vss Appearance: Alert.? Oriented X3.? No acute distress.? Head: Normocephalic, atraumatic, no step-offs or deformities Eyes: Pupils equal, round and reactive to light.? Neck: Normal inspection.? Neck supple.? CVS: Normal heart rate and rhythm.? Pulses normal.? Respiratory: No respiratory distress.? Breath sounds normal.? Abdomen: Soft and nontender.? Skin: Skin warm and dry.? Normal skin color.? Normal skin turgor.? Extremities: No lower extremity edema.? No calf ttp. 5/5 strength to bilateral upper and lower extremities Neuro: Oriented X 3.? No motor deficit.? No sensory deficit. CN 2-12 intact Course Course Course Narrative: This is an RME: Additional HPI, ROS, PE not included below will be deferred to primary provider. patient is a 53-year-old female who presents to the emergency department with concerns for allergic reaction. States yesterday night she began taking doxycycline for ear infection, states since this morning she developed progressively worsening symptoms, now she is experiencing facial flushing, swelling, nasal congestion, feels like she is having a hard time breathing airways are getting clogged . She is speaking clear full sentences, no hypoxia. Reevaluation(s) Reevaluation #1: Patient's face is no longer flushed. Patient feeling much better. Controlling secretions well. Tolerating p.o.. Will discharge her home with prednisone, EpiPen, Benadryl. Will have her follow up with Allergy and immunology. Educated patient on diagnosis and treatment plan, answered all question, patient verbalizes understanding. At this time patient will be discharged home, advised to return with new or worsening symptoms. Educated on worrisome signs and symptoms and when to return. At this time I feel comfortable discharge home. Time: 19:21 Medications Administered Discontinued Medications Generic Name Dose Route Start Last Admin Trade Name Dayneq PRN Reason Stop Dose Admin Diphenhydramine HCl 50 mg 08/24/23 16:55 08/24/23 17:02 Diphenhydramine Hcl 50 Mg/Ml Vial IVPUSH 08/24/23 16:56 50 mg ONCE ONE Administration Famotidine 20 mg 08/24/23 16:55 08/24/23 17:02 Famotidine/Pf 20 Mg/2 Ml Vial IVPUSH 08/24/23 16:56 20 mg ONCE ONE Administration Methylprednisolone Sodium Succinate 125 mg 08/24/23 16:55 08/24/23 17:02 Methylprednisolone Sod Succ 125 Mg/2 Ml Vial IVPUSH 08/24/23 16:56 125 mg ONCE ONE Administration Medical Decision Making Medical Decision Making [facility] Narrative: [id number] 53-year-old female presents with difficulty breathing, red face, swelling to face status post starting doxycycline yesterday last dose last night. Physical exam patient does have a flushed face. Patient speaking in full sentences controlling secretions well. 100% on room air. No signs of airway edema. Concerns for acute allergic reaction. Unlikely anaphylaxis at this time. No signs of threat to airway at this time. Plan will give Benadryl, Solu-Medrol, Pepcid. Will observe and give epinephrine is needed. Differential Diagnosis Differential Diagnoses: The differential diagnosis associated with the presentation includes Concerns for acute allergic reaction. Unlikely anaphylaxis at this time. No signs of threat to airway at this time. Admission/Observation Consideration of admission/observation: Escalation of care including admission/observation considered unlikely Chronic Conditions Patient?s care impacted by: Hypertension and Other (anxiety) Critical Care Time Critical Care Time Critical Care Time: No Discharge Plan Discharge Clinical Impression: Allergic reaction Patient Disposition: Home, Self-Care Instructions: Allergy Testing (ED) Additional Instructions: Take your medications as prescribed. If you were prescribed antibiotics today, it is important that you take your medication to their entirety, do not skip any doses, do not finish them early. Follow-up with your primary care provider this week. Return to the emergency department with new or worsening symptoms. Such as fevers, chills, chest pain, shortness of breath, nausea, vomiting, dizziness, headache, vision changes, lethargy In case of emergency call 911 An EpiPen has been sent to your pharmacy, please use this if he feel like her throat is closing or if you are having any symptoms of anaphylaxis. Prescriptions: New diphenhydramine HCl [Benadryl] 25 mg capsule 25 mg PO TID PRN (Reason: allergic reaction) Qty: 20 0RF epinephrine [EpiPen 2-Emil] 0.3 mg/0.3 mL auto-injector 0.3 mg IM Q4H PRN (Reason: anaphylaxis) Qty: 2 0RF cephalexin 500 mg tablet 500 mg PO Q6H 10 Days Qty: 40 0RF prednisone 50 mg tablet 50 mg PO DAILY 5 Days Qty: 5 0RF No Action topiramate 50 mg tablet 50 mg PO DAILY Qty: 30 2RF ferrous sulfate 325 mg (65 mg iron) tablet 325 mg PO BID Qty: 60 11RF albuterol sulfate 90 mcg/actuation HFA aerosol inhaler 2 inh inhalation Q4-6H PRN (Reason: bronchospasm) 30 Days Qty: 18 3RF fluticasone propionate 50 mcg/actuation spray,suspension 1 spray intranasal BID 30 Days Qty: 15.8 5RF budesonide-formoterol 160-4.5 mcg/actuation HFA aerosol inhaler 2 puff PO BID 30 Days Qty: 1 3RF omeprazole 20 mg capsule,delayed release(DR/EC) 20 mg PO DAILY 90 Days Qty: 90 0RF cetirizine [Zyrtec] 10 mg tablet 10 mg PO DAILY PRN (Reason: allergy symptoms) 90 Days Qty: 90 0RF amoxicillin-pot clavulanate 875-125 mg tablet 1 tab PO BID 10 Days Qty: 20 0RF doxycycline hyclate 100 mg capsule 100 mg PO BID 10 Days Qty: 20 0RF oxycodone-acetaminophen [Percocet] 5-325 mg tablet 1 tab PO BID PRN (Reason: pain) 7 Days Qty: 14 0RF Rx Instructions: Partial Fill upon patient request. hydroxyzine HCl 25 mg tablet 25 mg PO BEDTIME PRN (Reason: anxiety) Qty: 90 1RF (DME) CPAP Machine/Device Device See Rx Instructions .Route Rx Instructions: As directed [facility]errals: [facility] [Outside] - 2 days
[2023-08-24 16:50] VITALS: BP 129/70; PULSE 89; RESP 18; TEMP 36.6; O2SAT 98; BMI 28.8
[2023-08-24] MEDS: diphenhydrAMINE HCL 50 MG/ML VIAL IVPUSH (17:02)
[2023-08-24] MEDS: methylPREDNISolone Sod Succ 125 MG/2 ML VIAL IVPUSH (17:02)
[2023-08-24] MEDS: Famotidine/PF 20 MG/2 ML VIAL IVPUSH (17:02)
--- NOTE | 2023-08-24 17:14 | PC.NURSE ---
Provider at bedside, IV placed, medications administered. Pt able to hold full sentences, breathing with ease on RA
[2023-08-24 20:00] VITALS: BP 124/80; PULSE 85; RESP 18; O2SAT 96
--- NOTE | 2023-08-24 20:04 | PC.NURSE ---
This conventional mortgage underwriter assumed care of pt at 1900, pt reporting no pain, Pt exhibiting some facial swelling and redness, pt states she feels much better. VSS. Pt speaking in full sentences, unlabored respirations noted. Pt aware of plan of care.
== END 2023-08-24 20:09 | disposition home or self-care (01) ==
PROVIDERS: Emergency Provider Emergency Medicine; PCP Internal Medicine
DX: R06.02 Shortness of breath (principal); T36.4X5A Adverse effect of tetracyclines, initial encounter; Y92.9 Unspecified place or not applicable; Z79.899 Other long term (current) drug therapy
CPT/HCPCS: 96374; 96375; 99284; J1200; J2930

== ENCOUNTER 2023-08-30 10:45 | Outpatient (AMB) | payer OTHER, SELFPAY ==
--- NOTE | 2023-08-30 09:47 | MHC.PC.OV ---
Intake Visit Reasons: 1 Wk Follow Up~ Allergies doxycycline Allergy (Severe, Verified 08/30/23 09:52) Swelling of face peanut Allergy (Severe, Verified 08/30/23 09:48) Hives seafood Allergy (Unknown, Verified 08/30/23 09:48) hives, throat feels like it is closing ibuprofen [IBUPROFEN] Adverse Reaction (Unknown, Verified 08/30/23 09:48) HEARTBURN Tobacco use date assessed: 08/30/23 Dental Screening Dental Screen Date: 08/30/23 HPI 1 Wk Follow Up~ HPI Details Patient presented to emergency room August 24 with a chief complaint of flushing of face difficulty swallowing and more short of breath She took doxycycline and developed a reaction to that. Patient was treated in the emergency room with Benadryl, Solu-Medrol and Pepcid She improved her symptoms resolved and she was discharged Doxycycline was prescribed for right ear infection and Parotitis Patient was discharged home with Benadryl EpiPen injection Cephalexin 500 mg q.6 for 10 days And prednisone 50 mg once a day for 5 days [facility] Medical History Anemia Heavy menses Chronic GERD Migraine headache Anxiety, generalized Asthma Surgical History Hx of arthroscopic knee surgery No pertinent past surgical history Family History Father No problems noted. Mother Arthritis Asthma Diabetes mellitus HTN (hypertension) Son No problems noted. Sister No problems noted. Sister No problems noted. Sister No problems noted. Brother Substance use disorder Brother Substance use disorder Brother Substance use disorder Brother No problems noted. Social History Housing: House Are you a primary healthcare financial analyst to a significant other at home: No Do you presently have visiting nurse or other home services: No Alcohol intake: current Alcohol intake frequency: a few times a month Patient Tobacco Use Status: Current everyday Tobacco user Cigarettes Per Day: 1 Years Smoked: 20 Packs per year/per ci.00 e-Cigarette/Vaping Use: Never Used Second Hand Smoke Exposure: No Current occupational status: employed Sexual orientation: Straight/Heterosexual Gender identity: Female Cognitive needs: No Hearing needs: No Vision needs: Yes Female Reproductive History Menstrual Age of Menarche: 15 Questionnaire Thrive Questionnaire Date Thrive assessed: 08/17/23 CELSA-7 AMB Questionnaire CELSA-7 Date CELSA - 7 assessed: 08/17/23 Source: Developed by Drs. Hamilton Luciano, Kirsten Bermudez, Nawaf Cosby and colleagues, with an educational marysol from [employer]. Physical exam (Primary Care) Tobacco/Smoking Status: Tobacco use Status Tobacco use date assessed 08/30/23 08/30/23 09:48 Patient Tobacco Use Status Current everyday Tobacco 08/30/23 09:48 e-Cigarette/Vaping Use Never Used 08/30/23 09:48 Thrive Assessment: Date of Thrive Assessment Date Thrive assessed 08/17/23 08/30/23 09:48 Coding
--- NOTE | 2023-08-30 10:39 | A.OFFPC_ITS ---
Intake Visit Reasons: 1 Wk Follow Up~ Allergies doxycycline Allergy (Severe, Verified 08/30/23 09:52) Swelling of face peanut Allergy (Severe, Verified 08/30/23 09:48) Hives seafood Allergy (Unknown, Verified 08/30/23 09:48) hives, throat feels like it is closing ibuprofen [IBUPROFEN] Adverse Reaction (Unknown, Verified 08/30/23 09:48) HEARTBURN Medication List - Last Reconciled 08/30/23 by Cyndi Carter MD albuterol sulfate 90 mcg/actuation 2 inhalations inhalation Q4-6H PRN 30 days amoxicillin-pot clavulanate 875-125 mg 1 tab PO BID 10 days budesonide-formoterol 160-4.5 mcg/actuation 2 puffs PO BID 30 days cephalexin 500 mg PO Q6H 10 days cetirizine (Zyrtec) 10 mg PO DAILY PRN 90 days CPAP (CPAP Machine/Device) As directed diphenhydramine HCl (Benadryl) 25 mg PO TID PRN epinephrine (EpiPen 2-Emil) 0.3 mg (0.3 mL) IM Q4H PRN ferrous sulfate 325 mg PO BID fluticasone propionate 50 mcg/actuation 1 spray intranasal BID 30 days hydroxyzine HCl 25 mg PO BEDTIME PRN omeprazole 20 mg PO DAILY 90 days oxycodone-acetaminophen 5-325 mg (Percocet) 1 tab PO BID PRN 7 days prednisone 50 mg PO DAILY 5 days topiramate 50 mg PO DAILY Tobacco use date assessed: 08/23/23 HPI 1 Wk Follow Up~ HPI Details Patient is a 53-year-old female this is a telemedicine video conference Patient ended up in hospital emergency room on 24 of August when she took doxycycline Patient started having flushing difficulty swallowing and difficulty breathing. She was treated with Benadryl, Solu-Medrol and Pepcid Patient responded to medication and started feeling better Patient was discharged with Keflex, Benadryl and prednisone She is taking it currently and is feeling better. There is no more shortness of breath or flushing of face. The swelling right side of her face is getting better as well Patient developed perotitis that is why she was treated with antibiotic. [facility] Medical History Anemia Heavy menses Chronic GERD Migraine headache Anxiety, generalized Asthma Surgical History Hx of arthroscopic knee surgery No pertinent past surgical history Family History Father No problems noted. Mother Arthritis Asthma Diabetes mellitus HTN (hypertension) Son No problems noted. Sister No problems noted. Sister No problems noted. Sister No problems noted. Brother Substance use disorder Brother Substance use disorder Brother Substance use disorder Brother No problems noted. Social History Housing: House Are you a primary livestock caretaker to a significant other at home: No Do you presently have visiting nurse or other home services: No Alcohol intake: current Alcohol intake frequency: a few times a month Patient Tobacco Use Status: Current everyday Tobacco user Cigarettes Per Day: 1 Years Smoked: 20 e-Cigarette/Vaping Use: Never Used Second Hand Smoke Exposure: No Current occupational status: employed Sexual orientation: Straight/Heterosexual Gender identity: Female Cognitive needs: No Hearing needs: No Vision needs: Yes Female Reproductive History Menstrual Age of Menarche: 15 Questionnaire Thrive Questionnaire Date Thrive assessed: 08/17/23 CELSA-7 AMB Questionnaire CELSA-7 Date CELSA - 7 assessed: 08/17/23 Source: Developed by Drs. Hamilton Luciano, Kirsten Bermudez, Nawaf Cosby and colleagues, with an educational marysol from [employer]. Review of Systems Const Denies chills and Denies fever(s) ENT Denies epistaxis and Denies nasal discharge Card Denies chest pain Resp Denies chest congestion, Denies cough and Denies hemoptysis GI Denies diarrhea and Denies nausea Skin/Breast Denies rash Neuro Reports no additional complaints Psych Reports no additional complaints Endo Reports no additional complaints Physical exam (Primary Care) Tobacco/Smoking Status: Tobacco use Status Tobacco use date assessed 08/23/23 08/23/23 08:49 Patient Tobacco Use Status Current everyday Tobacco 08/23/23 08:49 e-Cigarette/Vaping Use Never Used 08/23/23 08:49 Thrive Assessment: Date of Thrive Assessment Date Thrive assessed 08/17/23 08/23/23 08:49 Telehealth Telehealth Location of provider rendering services: practice address Location of patient: address on file Patient Identification confirmed using: Name, : Yes Telehealth method: video Patient verbally consented to treatment: Yes Patient verbally consented to billing insurance company: Yes Patient informed of any privacy concerns related to visit: Yes Minutes spent on Phone/Video with Pt.: 13 Assessment and Plan Assessment & Plan (1) Parotitis, acute: Code(s): K11.21 - Acute sialoadenitis (2) Allergic reaction due to antibacterial drug: Code(s): T36.95XA - Adverse effect of unspecified systemic antibiotic, initial encounter Plan Patient is a 53-year-old female this is a telemedicine video conference Patient ended up in hospital emergency room on 24 of August when she took doxycycline Patient started having flushing difficulty swallowing and difficulty breathing. She was treated with Benadryl, Solu-Medrol and Pepcid Patient responded to medication and started feeling better Patient was discharged with Keflex, Benadryl and prednisone She is taking it currently and is feeling better. There is no more shortness of breath or flushing of face. The swelling right side of her face is getting better as well Patient developed perotitis that is why she was treated with antibiotic. Medications: Refilled hydroxyzine HCl 25 mg PO BEDTIME PRN 90 tabs 1RF anxiety Discontinued doxycycline hyclate Discontinued Reason: Doctor's Order 100 mg PO BID 10 days 20 caps 0RF Coding Level of Care Code Tele Est Pt Level 3 (24109) Diagnoses Parotitis, acute K11.21 Allergic reaction due to antibacterial drug T36.95XA
== END 2023-08-30 11:20 | disposition home or self-care (01) ==
PROVIDERS: PCP Internal Medicine; Visit Provider Internal Medicine
DX: K11.21 Acute sialoadenitis (principal); T36.95XA Adverse effect of unspecified systemic antibiotic, initial encounter
CPT/HCPCS: 99213

== ENCOUNTER 2023-09-14 14:31 | Outpatient (AMB) | payer MEDICAID, SELFPAY ==
[2023-09-14 14:36] VITALS: BP 130/76; PULSE 101; O2SAT 99; BMI 33.0
--- NOTE | 2023-09-14 14:36 | MHC.PC.OV ---
Vital Signs 09/14/23 14:36 Height 5 ft 4 in Weight 192 lb 2 oz BMI 33.0 BP 130/76 Blood Pressure Location Lt brachial Position Sitting Pulse 101 H Pulse Source Pulse Oximeter Pulse Oximetry (%) 99 Oxygen Delivery Method Room Air Intake Visit Reasons: right side of cheek pain Allergies doxycycline Allergy (Severe, Verified 09/14/23 14:41) Swelling of face peanut Allergy (Severe, Verified 09/14/23 14:41) Hives seafood Allergy (Unknown, Verified 09/14/23 14:41) hives, throat feels like it is closing ibuprofen [IBUPROFEN] Adverse Reaction (Unknown, Verified 09/14/23 14:41) HEARTBURN Medication List - Last Reconciled 09/14/23 by Cyndi Carter MD albuterol sulfate 90 mcg/actuation 2 inhalations inhalation Q4-6H PRN 30 days budesonide-formoterol 160-4.5 mcg/actuation 2 puffs PO BID 30 days cephalexin 500 mg PO Q6H 10 days cetirizine (Zyrtec) 10 mg PO DAILY PRN 90 days CPAP (CPAP Machine/Device) As directed diphenhydramine HCl (Benadryl) 25 mg PO TID PRN epinephrine (EpiPen 2-Emil) 0.3 mg (0.3 mL) IM Q4H PRN ferrous sulfate 325 mg PO BID fluticasone propionate 50 mcg/actuation 1 spray intranasal BID 30 days hydroxyzine HCl 25 mg PO BEDTIME PRN omeprazole 20 mg PO DAILY 90 days topiramate 50 mg PO DAILY Tobacco use date assessed: 09/14/23 Dental Screening Dental Screen Date: 09/14/23 Did you have a dental visit in the last 12 months?: Yes Did you have a dental problem in the last 6 months where you did not have access to dental care?: No Was dental information given to patient?: Patient has dentist HPI right side of cheek pain HPI Details Patient continued to suffer from lump parotid area, she has already finished 3 rounds of antibiotics without any relief Last antibiotic was Keflex given to her in emergency room when she developed allergic reaction to doxycycline, patient felt better after that but then the swelling came back This time it is hurting all the way in her right ear. Patient is taking Percocet with some relief This time I am prescribing clindamycin for 7 days Percocet refill provided Prednisone 50 mg once a day for [address] scan of neck ordered with IV contrast Urgent referral to oral surgeon placed [facility] Medical History Anemia Heavy menses Chronic GERD Migraine headache Anxiety, generalized Asthma Surgical History Hx of arthroscopic knee surgery No pertinent past surgical history Family History Father No problems noted. Mother Arthritis Asthma Diabetes mellitus HTN (hypertension) Son No problems noted. Sister No problems noted. Sister No problems noted. Sister No problems noted. Brother Substance use disorder Brother Substance use disorder Brother Substance use disorder Brother No problems noted. Social History Housing: House Are you a primary medical care administrator to a significant other at home: No Do you presently have visiting nurse or other home services: No Alcohol intake: current Alcohol intake frequency: a few times a month Comment: medicated, see MAR Patient Tobacco Use Status: Current everyday Tobacco user Cigarettes Per Day: 1 Years Smoked: 20 Packs per year/per ci.00 e-Cigarette/Vaping Use: Never Used Second Hand Smoke Exposure: No Current occupational status: employed Sexual orientation: Straight/Heterosexual Gender identity: Female Cognitive needs: No Hearing needs: No Vision needs: Yes Female Reproductive History Menstrual Age of Menarche: 15 Questionnaire Thrive Questionnaire Date Thrive assessed: 08/17/23 AUDIT C Alcohol Use Questionnaire (AUDIT-C) 1. How often do you have a drink containing alcohol?: Monthly or less 2. How many drinks containing alcohol do you have on a typical day when you are drinking?: 1 or 2 3. How often do you have six or more drinks on one occasion?: Never Total Score: 1 Score Reviewed/Action Taken: Yes CELSA-7 AMB Questionnaire CELSA-7 Date CELSA - 7 assessed: 08/17/23 Source: Developed by Drs. Hamilton Luciano, Kirsten Bermudez, Nawaf Cosby and colleagues, with an educational marysol from [employer]. Review of Systems Const Denies chills and Denies fever(s) ENT Denies epistaxis and Denies nasal discharge Card Denies chest pain Resp Denies chest congestion, Denies cough and Denies hemoptysis GI Denies diarrhea and Denies nausea Skin/Breast Denies rash Neuro Reports no additional complaints Psych Reports no additional complaints Endo Reports no additional complaints Physical exam (Primary Care) Vital Signs: Last Vital Signs Pulse 101 H 09/14/23 14:36 BP 130/76 09/14/23 14:36 Pulse Ox 99 09/14/23 14:36 Oxygen Delivery Method Room Air 09/14/23 14:36 BMI result Body Mass Index 33.0 Tobacco/Smoking Status: Tobacco use Status Tobacco use date assessed 09/14/23 09/14/23 14:41 Patient Tobacco Use Status Current everyday Tobacco 09/14/23 14:41 e-Cigarette/Vaping Use Never Used 09/14/23 14:41 Thrive Assessment: Date of Thrive Assessment Date Thrive assessed 08/17/23 09/14/23 14:41 Const General: cooperative, comfortable and no acute distress Orientation/consciousness: patient oriented x3 HENMT Head: Yes normocephalic Head images: 1. Painful swelling Eyes General: appearance normal, both eyes and all related structures Neck Neck: Yes supple Resp Effort & Inspection: normal respiratory effort, no cough and no stridor Cardio Rhythm: regular rhythm Heart sounds: S1 normal heart sound present and S2 normal heart sound present Skin General skin exam: turgor normal Neuro General: patient oriented x3, tone normal and moves all extremities Extrem Right lower extremity: no edema Left lower extremity: no edema Assessment and Plan Assessment & Plan (1) Parotitis, acute: Code(s): K11.21 - Acute sialoadenitis (2) Right ear pain: Code(s): H92.01 - Otalgia, right ear (3) Pain management: Code(s): R52 - Pain, unspecified (4) Homeless: Code(s): Z59.00 - Homelessness unspecified Plan Patient continued to suffer from lump parotid area, she has already finished 3 rounds of antibiotics without any relief Last antibiotic was Keflex given to her in emergency room when she developed allergic reaction to doxycycline, patient felt better after that but then the swelling came back This time it is hurting all the way in her right ear. Patient is taking Percocet with some relief This time I am prescribing clindamycin for 7 days Percocet refill provided Prednisone 50 mg once a day for [address] scan of neck ordered with IV contrast Urgent referral to oral surgeon placed Orders: Orders CT soft tissue neck wo IV con Today K11.21 - Acute sialoadenitis Referrals Oral Surgery Referal K11.21 - Acute sialoadenitis Medications: New clindamycin HCl 150 mg PO TID 21 caps 0RF 7 days Refilled oxycodone-acetaminophen 5-325 mg (Percocet) Partial Fill upon patient request. 1 tab PO BID PRN 14 tabs 0RF pain 7 days prednisone 50 mg PO DAILY 5 tabs 0RF 5 days Coding Level of Care Code Est Pt Level 4 (08233) Diagnoses Parotitis, acute K11.21 Right ear pain H92.01 Pain management R52 Homeless Z59.00
== END 2023-09-14 15:29 | disposition home or self-care (01) ==
LOC: HO.HMGC 14:31
PROVIDERS: PCP Internal Medicine; Visit Provider Internal Medicine
DX: K11.21 Acute sialoadenitis (principal); H92.01 Otalgia, right ear; Z59.00 Homelessness unspecified
CPT/HCPCS: 99214

== ENCOUNTER 2024-01-07 12:00 | Outpatient (REF) | payer OTHER, SELFPAY | END 2024-01-07 12:01 | disposition home or self-care (01) | LOC: HO.MAMMO 12:00 | PROVIDERS: PCP Internal Medicine; Visit Provider Internal Medicine | DX: Z12.31 Encounter for screening mammogram for malignant neoplasm of breast (principal) | CPT/HCPCS: 77063; 77067 ==

== ENCOUNTER → 2024-01-07 12:06 | Outpatient (BNV) | payer OTHER, SELFPAY | PROVIDERS: PCP Internal Medicine; Visit Provider Radiology Diagnostic Radiology | DX: Z12.31 Encounter for screening mammogram for malignant neoplasm of breast (principal) | CPT/HCPCS: 77063; 77067 ==

== ENCOUNTER 2024-10-15 13:53 | Emergency (ER) | payer SELFPAY ==
--- NOTE | ~2024-10-15 | XR_ITS ---
CLINICAL HISTORY: pain 3 view right foot Comparison: None Findings: Bones intact. No dislocations. No significant arthritic change or erosions. No ankle effusion. There is soft tissue edema of the foot. No radiopaque foreign body. IMPRESSION: No acute fracture. This document has been electronically signed by: Caleb Saravia MD on 10/15/2024 14:56:54
[2024-10-15 14:09] VITALS: BP 119/78; PULSE 86; RESP 18; TEMP 36.2; O2SAT 96; BMI 27.5
--- NOTE | 2024-10-15 14:09 | ED.GENADULT ---
HPI - General Adult General Chief complaint: Extremity Injury, Lower Stated complaint: r foot inj Time Seen by Provider: 10/15/24 15:08 Source: patient, RN notes reviewed and old records reviewed Mode of arrival: ambulatory Limitations: no limitations History of Present Illness ED Provider: Niles HPI narrative: 54-year-old female presents for evaluation of right foot pain. She reports that she fell downstairs yesterday when she was wearing a sandal. She reports that her right foot twisted inwards She denies any ankle pain. She was increased pain with walking and reports pain to the bottom of her right foot. She has been able to walk has been limping Her pain is 06/24 Related Data Home Medications ?Medication ?Instructions ?Recorded ?Confirmed CPAP (CPAP Machine/Device) 09/28/22 09/14/23 Previous Rx's ?Medication ?Instructions ?Recorded topiramate 50 mg tablet 50 mg PO DAILY #30 tabs 01/10/21 ferrous sulfate 325 mg (65 mg 325 mg PO BID #60 tabs 01/18/21 iron) tablet albuterol sulfate 90 mcg/actuation 2 inh inhalation Q4-6H PRN 09/05/21 aerosol inhaler bronchospasm 30 days #18 grams cephalexin 500 mg tablet 500 mg PO Q6H 10 days #40 tabs 08/24/23 diphenhydramine HCl 25 mg capsule 25 mg PO TID PRN allergic reaction 08/24/23 (Benadryl) #20 caps epinephrine 0.3 mg/0.3 mL 0.3 mg (0.3 mL) IM Q4H PRN 08/24/23 injection, auto-injector (EpiPen anaphylaxis #2 ea 2-Emil) hydroxyzine HCl 25 mg tablet 25 mg PO BEDTIME PRN anxiety #90 08/30/23 tabs clindamycin HCl 150 mg capsule 150 mg PO TID 7 days #21 caps 09/14/23 prednisone 50 mg tablet 50 mg PO DAILY 5 days #5 tabs 09/14/23 budesonide-formoterol HFA 160 2 puff PO BID 30 days #1 units 09/16/23 mcg-4.5 mcg/actuation aerosol inhaler omeprazole 20 mg capsule,delayed 20 mg PO DAILY 90 days #90 caps 10/17/23 release oxycodone-acetaminophen 5 mg-325 1 tab PO BID PRN pain 7 days #14 01/03/24 mg tablet (Percocet) tabs cetirizine 10 mg tablet (Zyrtec) 10 mg PO DAILY PRN allergy 02/04/24 symptoms 90 days #90 tabs fluticasone propionate 50 1 spray intranasal BID 30 days 02/04/24 mcg/actuation nasal #15.8 mL spray,suspension ibuprofen 600 mg tablet 600 mg PO Q6H PRN pain #20 tabs 10/15/24 Allergies Allergy/AdvReac Type Severity Reaction Status Date / Time doxycycline Allergy Severe Swelling Verified 10/15/24 14:12 of face peanut Allergy Severe Hives Verified 10/15/24 14:12 seafood Allergy Unknown hives, Verified 10/15/24 14:12 throat feels like it is closing ibuprofen [IBUPROFEN] AdvReac Unknown HEARTBURN Verified 10/15/24 14:12 Review of Systems Constitutional: Constitutional: Denies headache(s) ENT: Denies headache(s) Musculoskeletal: Musculoskeletal: Reports arthralgias, Denies joint swelling and Reports limited range of motion Neurologic: Denies headache(s) PMFSH Past Medical History Medical History Anemia Heavy menses Chronic GERD Migraine headache Anxiety, generalized Asthma Surgical History Hx of arthroscopic knee surgery No pertinent past surgical history Family History Family History Father No problems noted. Mother Arthritis Asthma Diabetes mellitus HTN (hypertension) Son No problems noted. Sister No problems noted. Sister No problems noted. Sister No problems noted. Brother Substance use disorder Brother Substance use disorder Brother Substance use disorder Brother No problems noted. Social History Social History Housing: House Are you a primary senior resident care director to a significant other at home: No Do you presently have visiting nurse or other home services: No Alcohol intake: current Alcohol intake frequency: a few times a month Comment: medicated, see MAR Patient Tobacco Use Status: Current everyday Tobacco user Cigarettes Per Day: 1 Years Smoked: 20 e-Cigarette/Vaping Use: Never Used Second Hand Smoke Exposure: No Advance Directives: No Advance Directives Information Provided: No Current occupational status: employed Sexual orientation: Straight/Heterosexual Gender identity: Female Cognitive needs: No Hearing needs: No Vision needs: Yes Physical Exam ED Vital Signs: Vital Signs - 24 hr 10/15/24 14:09 10/15/24 16:05 Temperature 97.1 F 97.1 F Pulse Rate 86 86 Respiratory Rate 18 18 Blood Pressure 119/78 119/78 Pulse Oximetry 96 96 Oxygen Delivery Method Room Air Room Air BMI result Body Mass Index 27.5 Const General: healthy appearing, comfortable, no acute distress, alert and awake Nutritional Appearance: well nourished Orientation/consciousness: patient oriented x3 HENMT Head: Yes normocephalic and Yes atraumatic Eyes Eyelids: Yes eyelids normal Conjunctivae: conjunctivae normal Sclerae: sclerae normal Corneas: corneas normal Pupils: Equal, round and reactive pupils present EOM: EOMs intact bilaterally Neck Neck: Yes full ROM Resp Effort & Inspection: normal respiratory effort, able to speak in complete sentences and not labored Skin General skin exam: elasticity normal Neuro General: patient oriented x3 Cranial nerves: Yes Equal, round and reactive pupils present and Yes Bilaterally intact EOM present Cognition (Neuro): normal cognition Extrem Other: There is no obvious visual deformity to the right lower extremity. There is no tenderness to the right medial or lateral malleolus of the ankle. There is tenderness to the right plantar fascia as well as the medial aspect of the right foot. No palpable deformity either Course Course Course Narrative: RME, this is a rapid medical exam performed by Yoni Cage please refer to primary provider for complete H&P- 54-year-old female presents for evaluation of right foot pain. She reports that she was going down the stairs yesterday with sandals on, her foot twisted inward. She has no ankle pain. Pain mostly to the medial aspect of the right foot and plantar surface. Plan for x-ray of the right foot. Medical Decision Making Medical Decision Making MDM Narrative: 54-year-old female presents for evaluation of right foot pain after a fall yesterday. She has no pain to the ankle, no tenderness to the ankle. Plan for x-ray of the right foot. Differential Diagnosis Differential Diagnoses: The differential diagnosis associated with the presentation includes Foot sprain Ankle sprain Foot contusion Plantar fasciitis Foot fracture Independent Interpretation I performed an independent interpretation of an: Plain X-Ray Interpretation: Findings: Bones intact. No dislocations. No significant arthritic change or erosions. No ankle effusion. There is soft tissue edema of the foot. No radiopaque foreign body. IMPRESSION: No acute fracture. This document has been electronically signed by: Caleb Saravia MD on 10/15/2024 14:56:54 Discharge Plan Discharge Clinical Impression: Right foot sprain Patient Disposition: Home, Self-Care Instructions: Foot Sprain (ED) Additional Instructions: Your x-ray was negative for fracture. You likely have a sprain of your foot. If your pain is not better after 1-2 weeks, you may want to repeat x-ray to rule out a subtle fracture that was missed. You may follow up with Orthopedics pain Continue ibuprofen, Tylenol, icing the foot and elevation. Prescriptions: New ibuprofen 600 mg tablet 600 mg PO Q6H PRN (Reason: pain) Qty: 20 0RF No Action topiramate 50 mg tablet 50 mg PO DAILY Qty: 30 2RF ferrous sulfate 325 mg (65 mg iron) tablet 325 mg PO BID Qty: 60 11RF albuterol sulfate 90 mcg/actuation HFA aerosol inhaler 2 inh inhalation Q4-6H PRN (Reason: bronchospasm) 30 Days Qty: 18 3RF budesonide-formoterol 160-4.5 mcg/actuation HFA aerosol inhaler 2 puff PO BID 30 Days Qty: 1 3RF oxycodone-acetaminophen [Percocet] 5-325 mg tablet 1 tab PO BID PRN (Reason: pain) 7 Days Qty: 14 0RF Rx Instructions: Partial Fill upon patient request. omeprazole 20 mg capsule,delayed release(DR/EC) 20 mg PO DAILY 90 Days Qty: 90 0RF cetirizine [Zyrtec] 10 mg tablet 10 mg PO DAILY PRN (Reason: allergy symptoms) 90 Days Qty: 90 0RF fluticasone propionate 50 mcg/actuation spray,suspension 1 spray intranasal BID 30 Days Qty: 15.8 1RF diphenhydramine HCl [Benadryl] 25 mg capsule 25 mg PO TID PRN (Reason: allergic reaction) Qty: 20 0RF epinephrine [EpiPen 2-Emil] 0.3 mg/0.3 mL auto-injector 0.3 mg IM Q4H PRN (Reason: anaphylaxis) Qty: 2 0RF cephalexin 500 mg tablet 500 mg PO Q6H 10 Days Qty: 40 0RF hydroxyzine HCl 25 mg tablet 25 mg PO BEDTIME PRN (Reason: anxiety) Qty: 90 1RF clindamycin HCl 150 mg capsule 150 mg PO TID 7 Days Qty: 21 0RF prednisone 50 mg tablet 50 mg PO DAILY 5 Days Qty: 5 0RF (DME) CPAP Machine/Device Device See Rx Instructions .Route Rx Instructions: As directed Referrals: Duke Riley MD [Physician] - (right foot pain) Interventions: ED Discharge Assessment Last Done: 10/15/24 16:05 Discharge Date/Time: 10/15/24 16:06 Print Language: Greenlandic
[2024-10-15 16:05] VITALS: BP 119/78; PULSE 86; RESP 18; TEMP 36.2; O2SAT 96
== END 2024-10-15 16:06 | disposition home or self-care (01) ==
PROVIDERS: Emergency Provider Emergency Medicine; PCP Internal Medicine
DX: S93.601A Unspecified sprain of right foot, initial encounter (principal); W10.9XXA Fall (on) (from) unspecified stairs and steps, initial encounter; Y93.9 Activity, unspecified; M79.671 Pain in right foot; Y92.9 Unspecified place or not applicable; Y99.9 Unspecified external cause status; D64.9 Anemia, unspecified; J45.909 Unspecified asthma, uncomplicated; F17.210 Nicotine dependence, cigarettes, uncomplicated; Z79.899 Other long term (current) drug therapy
CPT/HCPCS: 73630; 99283

== ENCOUNTER → 2024-10-15 14:11 | Outpatient (BNV) | payer SELFPAY | PROVIDERS: PCP Internal Medicine; Visit Provider Nuclear Medicine | DX: M79.671 Pain in right foot (principal) | CPT/HCPCS: 73630 ==

== ENCOUNTER 2024-12-16 14:11 | Outpatient (AMB) | payer OTHER, SELFPAY ==
[2024-12-16 14:19] VITALS: BP 122/86; PULSE 107; O2SAT 100; BMI 29.2
--- NOTE | 2024-12-16 14:19 | A.OFFPC_ITS ---
Vital Signs 12/16/24 14:19 Height 5 ft 5 in Weight 175 lb 8 oz BMI 29.2 BP 122/86 Blood Pressure Location Lt brachial Position Sitting Pulse 107 H Pulse Source Pulse Oximeter Pulse Oximetry (%) 100 Oxygen Delivery Method Room Air Intake Visit Reasons: Annual PE Allergies doxycycline Allergy (Severe, Verified 12/16/24 14:19) Swelling of face peanut Allergy (Severe, Verified 12/16/24 14:19) Hives seafood Allergy (Unknown, Verified 12/16/24 14:19) hives, throat feels like it is closing ibuprofen [IBUPROFEN] Adverse Reaction (Unknown, Verified 12/16/24 14:19) HEARTBURN Medication List - Last Reconciled 12/16/24 by Cyndi Carter MD albuterol sulfate 90 mcg/actuation 2 inhalations inhalation Q4-6H PRN 30 days budesonide-formoterol 160-4.5 mcg/actuation 2 puffs PO BID 30 days cetirizine (Zyrtec) 10 mg PO DAILY PRN 90 days CPAP (CPAP Machine/Device) As directed diphenhydramine HCl (Benadryl) 25 mg PO TID PRN epinephrine (EpiPen 2-Emil) 0.3 mg (0.3 mL) IM Q4H PRN ferrous sulfate 325 mg PO BID fluticasone propionate 50 mcg/actuation 1 spray intranasal BID 30 days hydroxyzine HCl 25 mg PO BEDTIME PRN ibuprofen 600 mg PO Q6H PRN omeprazole 20 mg PO DAILY 90 days Tobacco use date assessed: 12/16/24 Dental Screening Dental Screen Date: 12/16/24 Did you have a dental visit in the last 12 months?: Yes Did you have a dental problem in the last 6 months where you did not have access to dental care?: No Was dental information given to patient?: Patient has dentist HPI Annual PE HPI Details Physical exam appointment - The patient is a 54-year-old female pr esenting for medication management needs. - asthma is stable with inhalers - Reports insomnia exacerbated by curren t living situation and trauma from living with parent's past. - allergic rhinitis stable however requi ring nasal spray for management. - Living conditions have produced stress -related insomnia, impacting overall daily functioning. - Nicotine dependence admitted as stress management strategy. Using vapes - Weight changes noted, with significant fluctuation observed since recent check-ups. Health Maintenance - Regular check-ups for asthma with eval uation and adjustment of management as n eeded. - Pending appointment for OBGYN for bethanie pause evaluation. - Scheduled a mammogram and other routin e screenings. - do not want to have colonoscopy but ag ree to do a Cologuard order placed Employment - History of losing job due to instabili ty in housing and personal stressors. - Previously shared a house with a natasha r but moved out due to familial conflicts. Patient Instructions - Advised continuation of inhaler use fo r asthma management. - Recommendation to use nicotine alterna tives cautiously. - Encouraged healthy dietary practices t o address weight management. - Advised to follow up on scheduled [facility] for [facility]BGYN and mammogram. - Instructed on setting up the patient p ortal for easier access to medical records and appointments. Review of Systems - General: No fever no chills - Neurological: No headaches no dizzin ess - Ear nose throat: No sore throat no hearing difficulty no ear pain - Cardiovascular: No syncope, no chest pain, no palpitations - Gastrointestinal: No nausea vomiting or diarrhea - Endocrine: No polyuria polydipsia no heat intolerance - Genitourinary: No dysuria - Skin: No new complaints Physical Exam General: Cooperative, healthy appearing, comfortable, no acute distress Orientation: Patient oriented x3 Limitations: None Head: Normal to inspection Ears: Within normal limit visually Nose: Normal external nose present Face and sinus: Normal facial exam Eyes: Appearance normal, extraocular movement intact pupils reactive Neck: Normal visual inspection and supple Respiratory: Normal respiratory effort and able to speak in complete sentences. Clear to auscultation, no stridor Cardiovascular: S1 and S2 regular in rate and rhythm Breast exam through OBGYN GI: Normal to inspection. Soft to palpation and nontender Skin: Turgor normal, no acute findings Neuro: Patient oriented x3, motor sensory intact, balance intact, tandem pass Extremities: Normal to inspection [facility] Medical History Anemia Heavy menses Chronic GERD Migraine headache Anxiety, generalized Asthma Surgical History Hx of arthroscopic knee surgery No pertinent past surgical history Family History Father No problems noted. Mother Arthritis Asthma Diabetes mellitus HTN (hypertension) Son No problems noted. Sister No problems noted. Sister No problems noted. Sister No problems noted. Brother Substance use disorder Brother Substance use disorder Brother Substance use disorder Brother No problems noted. Social History Housing: House Are you a primary body care manager to a significant other at home: No Do you presently have visiting nurse or other home services: No Alcohol intake: current Alcohol intake frequency: a few times a month Comment: medicated, see MAR Patient Tobacco Use Status: Current everyday Tobacco user Cigarettes Per Day: 1 Years Smoked: 20 e-Cigarette/Vaping Use: Never Used Second Hand Smoke Exposure: No service: No Current occupational status: employed Sexual orientation: Straight/Heterosexual Gender identity: Female Cognitive needs: No Hearing needs: No Vision needs: Yes Female Reproductive History Menstrual Age of Menarche: 15 Questionnaire PHQ-9 Over the last 2 weeks, how often have you been bothered by any of the following problems? 1. Little interest or pleasure in doing things: more than half the days 2. Feeling down, depressed, or hopeless: several days 3. Trouble falling or staying asleep, or sleeping too much: more than half the days 4. Feeling tired or having little energy: more than half the days 5. Poor appetite or overeating: nearly every day 6. Feeling bad about yourself - or that you are a failure or have let yourself or your family down: not at all 7. Trouble concentrating on things, such as reading the newspaper or watching television: not at all 8. Moving or speaking so slowly that other people could have noticed. Or the opposite - being so fidgety or restless that you have been moving around a lot more than usual: not at all 9. Thoughts that you would be better off or of hurting yourself in some way: not at all Total score: 10 Depression Screening Interpretation: Positive Depression Screening Follow-up: Community Mental Health Worker F/U Depression Screening Done: Yes 89058 - PHQ-9 Billing: Yes Source: Developed by Drs. Hamilton Luciano, Kirsten Bermudez, Nawaf Cosby and colleagues, with an educational marysol from [employer]. Thrive Questionnaire Date Thrive assessed: 12/16/24 I am a: Patient What is your living situation today?: I choose not to answer this question Within the past 12 months, did the food you bought not last and you didn't have the money to get more?: I choose not to answer this question Within the past 12 months, did you worry whether your food would run out before you got money to buy more?: I choose not to answer this question Do you have trouble paying for medicines?: I choose not to answer this question Do you have trouble getting transportation to medical appointments?: I choose not to answer this question Do you have trouble paying your heating and electricity bill?: Yes Do you have trouble taking care of your child, family member or friend?: I choose not to answer this question Do you have trouble with day-to-day activities such as bathing, preparing meals, shopping, managing finances, etc.?: I choose not to answer this question Are you currently unemployed and looking for a job?: I choose not to answer this question Are you interested in more education?: I choose not to answer this question Please select the resources that you would like help with: Housing/Detention Currently or been in a relationship where the following occur: I choose not to answer THRIVE Score: 1 AUDIT C Alcohol Use Questionnaire (AUDIT-C) 1. How often do you have a drink containing alcohol?: Monthly or less 2. How many drinks containing alcohol do you have on a typical day when you are drinking?: 1 or 2 3. How often do you have six or more drinks on one occasion?: Never Total Score: 1 Score Reviewed/Action Taken: Yes CELSA-7 AMB Questionnaire CELSA-7 Date CELSA - 7 assessed: 08/17/23 Source: Developed by Drs. Hamilton Luciano, Kirsten Bermudez, Nawaf Cosby and colleagues, with an educational marysol from [employer]. Physical exam (Primary Care) Vital Signs: Last Vital Signs Pulse 107 H 12/16/24 14:19 BP 122/86 12/16/24 14:19 Pulse Ox 100 12/16/24 14:19 Oxygen Delivery Method Room Air 12/16/24 14:19 BMI result Body Mass Index 29.2 Tobacco/Smoking Status: Tobacco use Status Tobacco use date assessed 03/04/25 03/04/25 14:23 Patient Tobacco Use Status Current everyday Tobacco 12/16/24 14:23 e-Cigarette/Vaping Use Never Used 12/16/24 14:23 PHQ-9: PHQ-9 Score PHQ-9: Total score 10 12/16/24 14:23 Depression Screening Interpretation: Positive Depression Screening Follow-up: Community Mental Health Worker F/U Thrive Assessment: Date of Thrive Assessment Date Thrive assessed 12/16/24 12/16/24 14:23 Currently or been in a relationship where the following occur: I choose not to answer Coding Level of Care Code Est Pt Level 3 (79531) Est Pt Prev Care 40-64y(96283) Diagnoses Encounter for general adult medical examination with abnormal findings Z00.01 Anxiety, generalized F41.1 Chronic GERD K21.9 Environmental allergies Z91.09 Class 1 obesity due to excess calories with serious comorbidity and body mass index (BMI) of 32.0 to 32.9 in adult E66.09; Z68.32 Body mass index: BMI 32.0-32.9 Obesity classification: adult class 1 (BMI 30 - 34.9) Serious obesity comorbidity presence: with serious comorbidity Moderate persistent asthma without complication J45.40 Asthma complication type: uncomplicated Severe episode of recurrent major depressive disorder, without psychotic features F33.2 Active/Remission status: currently active Major depression episode severity: severe Psychotic features: without psychotic features Homeless Z59.00 Difficulty sleeping G47.9 PTSD (post-traumatic stress disorder) F43.10 Nicotine use Z72.0 Additional Codes PHQ-9 - 32448 - PHQ-9 Billing: Yes ([id number]) Assessment & Plan Assessment & Plan (1) Encounter for general adult medical examination with abnormal findings: Code(s): Z00.01 - Encounter for general adult medical examination with abnormal findings Category: Medical (2) Anxiety, generalized: Code(s): F41.1 - Generalized anxiety disorder Category: Medical (3) Chronic GERD: Code(s): K21.9 - Gastro-esophageal reflux disease without esophagitis Category: Medical (4) Environmental allergies: Code(s): Z91.09 - Other allergy status, other than to drugs and biological substances Category: Medical (5) Obesity due to excess calories: Code(s): E66.09 - Other obesity due to excess calories Category: Medical Qualifiers: Body mass index: BMI 32.0-32.9 Obesity classification: adult class 1 (BMI 30 - 34.9) Serious obesity comorbidity presence: with serious comorbidity Qualified Code(s): E66.09 - Other obesity due to excess calories; Z68.32 - Body mass index [BMI] 32.0-32.9, adult (6) Asthma, moderate persistent: Code(s): J45.40 - Moderate persistent asthma, uncomplicated Category: Medical Qualifiers: Asthma complication type: uncomplicated Qualified Code(s): J45.40 - Moderate persistent asthma, uncomplicated (7) Major depression, recurrent: Code(s): F33.9 - Major depressive disorder, recurrent, unspecified Category: Medical Qualifiers: Active/Remission status: currently active Major depression episode severity: severe Psychotic features: without psychotic features Qualified Code(s): F33.2 - Major depressive disorder, recurrent severe without psychotic features (8) Homeless: Code(s): Z59.00 - Homelessness unspecified Category: Social Hx (9) Difficulty sleeping: Code(s): G47.9 - Sleep disorder, unspecified Category: Medical (10) PTSD (post-traumatic stress disorder): Code(s): F43.10 - Post-traumatic stress disorder, unspecified Category: Medical (11) Nicotine use: Code(s): Z72.0 - Tobacco use Category: Medical Plan Physical exam appointment - The patient is a 54-year-old female presenting for medication management needs. - asthma is stable with inhalers - Reports insomnia exacerbated by current living situation and trauma from living with parent's past. - allergic rhinitis stable however requiring nasal spray for management. - Living conditions have produced stress-related insomnia, impacting overall daily functioning. - Nicotine dependence admitted as stress management strategy. Using vapes - Weight changes noted, with significant fluctuation observed since recent check-ups. Health Maintenance - Regular check-ups for asthma with evaluation and adjustment of management as needed. - Pending appointment for OBGYN for menopause evaluation. - Scheduled a mammogram and other routine screenings. - do not want to have colonoscopy but agree to do a Cologuard order placed Employment - History of losing job due to instability in housing and personal stressors. - Previously shared a house with a sister but moved out due to familial conflicts. Patient Instructions - Advised continuation of inhaler use for asthma management. - Recommendation to use nicotine alternatives cautiously. - Encouraged healthy dietary practices to address weight management. - Advised to follow up on scheduled medical appointments for OBGYN and mammogram. - Instructed on setting up the patient portal for easier access to medical records and appointments. Orders: Orders Complete Blood Count Auto Diff Today E66.09 - Other obesity due to excess calories, F33.2 - Major depressive disorder, recurrent severe without psychotic features, F41.1 - Generalized anxiety disorder, G47.9 - Sleep disorder, unspecified, J45.40 - Moderate persistent asthma, uncomplicated, K21.9 - Gastro- esophageal reflux disease without esophagitis, Z59.00 - Homelessness unspecified, Z68.32 - Body mass index [BMI] 32.0-32.9, adult, Z72.0 - Tobacco use, Z91.09 - Other allergy status, other than to drugs and biological substances Comprehensive [place]. Panel Fast Today E66.09 - Other obesity due to excess calories, F33.2 - Major depressive disorder, recurrent severe without psychotic features, F41.1 - Generalized anxiety disorder, G47.9 - Sleep disorder, unspecified, J45.40 - Moderate persistent asthma, uncomplicated, K21.9 - Gastro- esophageal reflux disease without esophagitis, Z59.00 - Homelessness unspecified, Z68.32 - Body mass index [BMI] 32.0-32.9, adult, Z72.0 - Tobacco use, Z91.09 - Other allergy status, other than to drugs and biological substances Lipid Panel Today E66.09 - Other obesity due to excess calories, F33.2 - Major depressive disorder, recurrent severe without psychotic features, F41.1 - Generalized anxiety disorder, G47.9 - Sleep disorder, unspecified, J45.40 - Moderate persistent asthma, uncomplicated, K21.9 - Gastro-esophageal reflux disease without esophagitis, Z59.00 - Homelessness unspecified, Z68.32 - Body mass index [BMI] 32.0-32.9, adult, Z72.0 - Tobacco use, Z91.09 - Other allergy status, other than to drugs and biological substances Vitamin D 25-OH (D2 and D3) Today E66.09 - Other obesity due to excess calories, F33.2 - Major depressive disorder, recurrent severe without psychotic features, F41.1 - Generalized anxiety disorder, G47.9 - Sleep disorder, unspecified, J45.40 - Moderate persistent asthma, uncomplicated, K21.9 - Gastro- esophageal reflux disease without esophagitis, Z59.00 - Homelessness unspecified, Z68.32 - Body mass index [BMI] 32.0-32.9, adult, Z72.0 - Tobacco use, Z91.09 - Other allergy status, other than to drugs and biological substances TSH reflex Free T4 Today E66.09 - Other obesity due to excess calories, F33.2 - Major depressive disorder, recurrent severe without psychotic features, F41.1 - Generalized anxiety disorder, G47.9 - Sleep disorder, unspecified, J45.40 - Moderate persistent asthma, uncomplicated, K21.9 - Gastro-esophageal reflux disease without esophagitis, Z59.00 - Homelessness unspecified, Z68.32 - Body mass index [BMI] 32.0-32.9, adult, Z72.0 - Tobacco use, Z91.09 - Other allergy status, other than to drugs and biological substances UA CC w/rflx Micro + Cult Today E66.09 - Other obesity due to excess calories, F33.2 - Major depressive disorder, recurrent severe without psychotic features, F41.1 - Generalized anxiety disorder, G47.9 - Sleep disorder, unspecified, J45.40 - Moderate persistent asthma, uncomplicated, K21.9 - Gastro-esophageal reflux disease without esophagitis, Z59.00 - Homelessness unspecified, Z68.32 - Body mass index [BMI] 32.0-32.9, adult, Z72.0 - Tobacco use, Z91.09 - Other allergy status, other than to drugs and biological substances Referrals Cologuard Test Z12.11 - Encounter for screening for malignant neoplasm of colon Medications: Refilled fluticasone propionate 50 mcg/actuation 1 spray intranasal BID 30 days 15.8 mL 1RF cetirizine (Zyrtec) 10 mg PO DAILY 90 days PRN 90 tabs 0RF allergy symptoms Z91.09 - Other allergy status, other than to drugs and biological substances albuterol sulfate 90 mcg/actuation 2 inhalations inhalation Q4-6H 30 days PRN 18 grams 3RF bronchospasm hydroxyzine HCl 25 mg PO BEDTIME PRN 90 tabs 0RF anxiety omeprazole 20 mg PO DAILY 90 days 90 caps 0RF budesonide-formoterol 160-4.5 mcg/actuation 2 puffs PO BID 30 days 1 units 3RF
== END 2024-12-16 14:48 | disposition home or self-care (01) ==
PROVIDERS: PCP Internal Medicine; Visit Provider Internal Medicine
DX: Z00.00 Encounter for general adult medical examination without abnormal findings (principal); F33.2 Major depressive disorder, recurrent severe without psychotic features; E66.09 Other obesity due to excess calories; Z68.32 Body mass index [BMI] 32.0-32.9, adult; F41.1 Generalized anxiety disorder; K21.9 Gastro-esophageal reflux disease without esophagitis; Z91.09 Other allergy status, other than to drugs and biological substances; J45.40 Moderate persistent asthma, uncomplicated; Z59.00 Homelessness unspecified; G47.9 Sleep disorder, unspecified; F43.10 Post-traumatic stress disorder, unspecified; Z72.0 Tobacco use

== ENCOUNTER → 2024-12-16 14:11 | Outpatient (BNVA) | payer OTHER, SELFPAY | PROVIDERS: PCP Internal Medicine; Visit Provider Internal Medicine | DX: Z00.01 Encounter for general adult medical examination with abnormal findings (principal); F41.1 Generalized anxiety disorder; K21.9 Gastro-esophageal reflux disease without esophagitis; Z91.09 Other allergy status, other than to drugs and biological substances; E66.09 Other obesity due to excess calories; Z68.32 Body mass index [BMI] 32.0-32.9, adult; J45.40 Moderate persistent asthma, uncomplicated; F33.2 Major depressive disorder, recurrent severe without psychotic features; G47.9 Sleep disorder, unspecified; F43.10 Post-traumatic stress disorder, unspecified; Z72.0 Tobacco use; Z71.3 Dietary counseling and surveillance; Z71.6 Tobacco abuse counseling; Z59.00 Homelessness unspecified | CPT/HCPCS: 96127; 99396 ==

== ENCOUNTER 2025-06-09 12:38 | Outpatient (REF) | payer OTHER, SELFPAY ==
[2025-06-09 16:12] LABS: Appearance Urine Cloudy; Glucose Urine UA Negative (Negative); PH 5.0 (5.0-9.0); Specific Gravity - Urine >= 1.030 (1.005-1.025); UMIC TRIGGER UACC YES
[2025-06-09 16:15] LABS: MANUAL DIFF FLAG NO
[2025-06-09 16:17] LABS: UACC Culture Trigger YES
[2025-06-09 16:20] LABS: Cannabinoid Screen Urine Not Detected (Not Detect)
[2025-06-09 16:23] LABS: Hematocrit 43.6 % (37.0-47.0); Hemoglobin 13.9 g/dl (12.0-16.0); Imm Gran Abs Auto 0.02 X10*3/uL (0.00-0.03); Imm Gran Pct Auto 0.3 % (0.0-0.4); Lymphocytes Absolute Auto 2.1 X10*3/uL (1.2-4.9); Mean Corpuscular HGB Conc 31.9 g/dl (31.0-35.0); Mean Corpuscular Hemoglobin 28.4 pg (27.0-33.0); Mean Corpuscular Volume 89.2 fL (80.0-98.0); NRBC Abs Auto 0.000 X10*3/uL (0.0-0.012); NRBC Pct Auto 0.0 /100WBC (0.0-0.2); Platelet Count 304 X10*3/uL (160-400); Red Blood Count 4.89 X10*6/uL (4.20-5.50); White Blood Count 7.9 X10*3/uL (4.8-10.8)
[2025-06-09 16:55] LABS: Alanine Aminotransferase 20 U/L (0-31); Albumin Level 4.2 g/dL (3.5-5.0); Alkaline Phosphatase 91 U/L (39-117); Anion Gap 13 (12-20); Aspartate Amino Transferase 26 U/L (5-31); Blood Urea Nitrogen 17 mg/dL (9-16); Calcium 9.9 mg/dL (8.4-10.2); Carbon Dioxide 25 mmol/L (22-29); Chloride 108 mmol/L (96-108); Cholesterol 174 mg/dL (<200); Estimated Glomerular Filt Rate > 60; HDL Cholesterol 47 mg/dL (>40); Potassium 5.3 mmol/L (3.3-5.1); Sodium 141 mmol/L (135-145); Total Protein 7.5 g/dL (6.5-8.0); Triglycerides 59 mg/dL (<150)
[2025-06-13 18:23] LABS: Vitamin D 25-OH, D2 <4 ng/mL; Vitamin D 25-OH, D3 28 ng/mL; Vitamin D 25-OH, Total 28 ng/mL (30-100)
== END 2025-06-09 12:39 | disposition home or self-care (01) ==
LOC: HO.HMGCLDS 12:38
PROVIDERS: PCP Internal Medicine; Visit Provider Internal Medicine
DX: F41.1 Generalized anxiety disorder (principal); K21.9 Gastro-esophageal reflux disease without esophagitis; Z91.09 Other allergy status, other than to drugs and biological substances; E66.09 Other obesity due to excess calories; J45.40 Moderate persistent asthma, uncomplicated; F33.2 Major depressive disorder, recurrent severe without psychotic features; Z72.0 Tobacco use; G47.9 Sleep disorder, unspecified; F43.10 Post-traumatic stress disorder, unspecified; F43.9 Reaction to severe stress, unspecified; Z68.27 Body mass index [BMI] 27.0-27.9, adult; Z59.00 Homelessness unspecified; Z79.899 Other long term (current) drug therapy
CPT/HCPCS: 80053; 80061; 80307; 81001; 82306; 84443; 85025; 87086; 99212

== ENCOUNTER 2025-06-09 12:38 | Outpatient (AMB) | payer OTHER, SELFPAY ==
[2025-06-09 12:39] VITALS: BP 120/78; PULSE 90; O2SAT 97; BMI 27.8
--- NOTE | 2025-06-09 12:39 | A.OFFPC_ITS ---
Vital Signs 06/09/25 12:39 Height 5 ft 5 in Weight 167 lb BMI 27.8 BP 120/78 Blood Pressure Location Lt brachial Position Sitting Pulse 90 Pulse Source Pulse Oximeter Pulse Oximetry (%) 97 Oxygen Delivery Method Room Air Intake Visit Reasons: 4 months F/U Allergies doxycycline Allergy (Severe, Verified 06/09/25 12:40) Swelling of face peanut Allergy (Severe, Verified 06/09/25 12:40) Hives seafood Allergy (Unknown, Verified 06/09/25 12:40) hives, throat feels like it is closing ibuprofen (IBUPROFEN) Adverse Reaction (Unknown, Verified 06/09/25 12:40) HEARTBURN Medication List - Last Reconciled 06/09/25 by Cyndi Carter MD albuterol sulfate 90 mcg/actuation 2 inhalations inhalation Q4-6H PRN 30 days budesonide-formoterol 160-4.5 mcg/actuation 2 puffs PO BID 30 days cetirizine (Zyrtec) 10 mg PO DAILY PRN 90 days CPAP (CPAP Machine/Device) As directed epinephrine (EpiPen 2-Emil) 0.3 mg (0.3 mL) IM Q4H PRN ferrous sulfate 325 mg PO BID fluticasone propionate 50 mcg/actuation 1 spray intranasal BID 90 days hydroxyzine HCl 25 mg PO BEDTIME PRN omeprazole 20 mg PO DAILY 90 days Tobacco use date assessed: 12/16/24 Dental Screening Dental Screen Date: 12/16/24 HPI 4 months F/U HPI Details Chief Complaint The patient presents with anxiety and insomnia, requiring a urine drug screen for court. History The patient is a 54-year-old female presenting with anxiety and insomnia. Anxiety: - Stated she was experiencing high level s of anxiety due to ongoing legal issues with siblings. 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 - Recently experienced an anxiety attack that was uncontrollable and distressing. - Reported exacerbation of anxiety sympt oms when discussing legal matters and family disputes. Insomnia: - Reported difficulty sleeping, describi ng an inability to achieve restful sleep in the past several days. - Sleep disturbances are characterized b y waking after short sleep intervals, contributing to fatigue. - The onset of insomnia appears to corre late with increased stress levels from ongoing legal disputes. Medical History: - Asthma, managed with an inhaler. - Anxiety, previously treated with hydro xyzine. Medications: - Hydroxyzine for anxiety. - Inhaler for asthma (type unspecified). Social History: - Currently unemployed, previously lost a job due to ongoing legal disputes and stress. - Involved in ongoing legal battles with siblings, contributing to stress and anxiety. - No reported substance use despite fami lial allegations of drug abuse. Problem List - Anxiety - Insomnia - Asthma - GERD - Iron def [ has stopped taking Iron ] Patient Instructions - Take prescribed medications as directe d and attend follow-up in three weeks. - Ensure completion of urine drug test f or court documents. - Manage stress levels and attempt relax ation techniques to improve sleep quality. - start Buspar 10 mg, half to full a tab q 8 - Trazodon 50 mg , half to full tab at n ight as sleep aid f.u 3 wks Review of Systems General: No fever no chills neurological: No headaches no dizziness ear nose throat: No sore throat no hearing difficulty no ear pain cardiovascular: No syncope, no chest pain, no palpitations gastrointestinal: No nausea vomiting or diarrhea endocrine: No polyuria polydipsia no heat intolerance genitourinary: No dysuria skin: No new complaints Physical Exam general: No acute distress HEENT: No acute findings neck: Supple respiratory system: Lungs are clear, able to talk in full sentences, no audible wheeze, no stridor cardiovascular: S1-S2 RRR gastrointestinal: No pain extremities: No new findings BUYER GRAIN: Alert awake oriented x3 motor sensory intact skin: Normal turgor PFSH Medical History Anemia Heavy menses Chronic GERD Migraine headache Anxiety, generalized Asthma Surgical History Hx of arthroscopic knee surgery No pertinent past surgical history Family History Father No problems noted. Mother Arthritis Asthma Diabetes mellitus HTN (hypertension) Son No problems noted. Sister No problems noted. Sister No problems noted. Sister No problems noted. Brother Substance use disorder Brother Substance use disorder Brother Substance use disorder Brother No problems noted. Social History Housing: House Are you a primary direct care supervisor to a significant other at home: No Do you presently have visiting nurse or other home services: No Alcohol intake: current Alcohol intake frequency: a few times a month Comment: medicated, see MAR Patient Tobacco Use Status: Current everyday Tobacco user Cigarettes Per Day: 1 Years Smoked: 20 e-Cigarette/Vaping Use: Never Used Second Hand Smoke Exposure: No service: No Current occupational status: employed Sexual orientation: Straight/Heterosexual Gender identity: Female Cognitive needs: No Hearing needs: No Vision needs: Yes Female Reproductive History Menstrual Age of Menarche: 15 Questionnaire Thrive Questionnaire Date Thrive assessed: 11/18/24 I am a: Patient What is your living situation today?: I choose not to answer this question Within the past 12 months, did the food you bought not last and you didn't have the money to get more?: I choose not to answer this question Within the past 12 months, did you worry whether your food would run out before you got money to buy more?: I choose not to answer this question Do you have trouble paying for medicines?: I choose not to answer this question Do you have trouble getting transportation to medical appointments?: I choose not to answer this question Do you have trouble paying your heating and electricity bill?: Yes Do you have trouble taking care of your child, family member or friend?: I choose not to answer this question Do you have trouble with day-to-day activities such as bathing, preparing meals, shopping, managing finances, etc.?: I choose not to answer this question Are you currently unemployed and looking for a job?: I choose not to answer this question Are you interested in more education?: I choose not to answer this question Currently or been in a relationship where the following occur: I choose not to answer THRIVE Score: 1 CELSA-7 AMB Questionnaire CELSA-7 Date CELSA - 7 assessed: 08/17/23 Source: Developed by Drs. Hamilton Luciano, Kirsten Bermudez, Nawaf Cosby and colleagues, with an educational marysol from [employer]. Physical exam (Primary Care) Vital Signs: Last Vital Signs Pulse 90 06/09/25 12:39 BP 120/78 06/09/25 12:39 Pulse Ox 97 06/09/25 12:39 Oxygen Delivery Method Room Air 06/09/25 12:39 BMI result Body Mass Index 27.8 Tobacco/Smoking Status: Tobacco use Status Tobacco use date assessed 12/16/24 06/09/25 12:44 Patient Tobacco Use Status Current everyday Tobacco 06/09/25 12:44 e-Cigarette/Vaping Use Never Used 06/09/25 12:44 Thrive Assessment: Date of Thrive Assessment Date Thrive assessed 11/18/24 06/09/25 12:44 Currently or been in a relationship where the following occur: I choose not to answer Coding Level of Care Code Est Pt Level 4 (36566) Complex EM visit Add On G2211 Diagnoses PTSD (post-traumatic stress disorder) F43.10 Severe episode of recurrent major depressive disorder, without psychotic features F33.2 Active/Remission status: currently active Major depression episode severity: severe Psychotic features: without psychotic features Anxiety, generalized F41.1 Environmental allergies Z91.09 Chronic GERD K21.9 Moderate persistent asthma without complication J45.40 Asthma complication type: uncomplicated Difficulty sleeping G47.9 Stress at home F43.9 Assessment & Plan Assessment & Plan (1) PTSD (post-traumatic stress disorder): Code(s): F43.10 - Post-traumatic stress disorder, unspecified Category: Medical (2) Major depression, recurrent: Code(s): F33.9 - Major depressive disorder, recurrent, unspecified Category: Medical Qualifiers: Active/Remission status: currently active Major depression episode severity: severe Psychotic features: without psychotic features Qualified Code(s): F33.2 - Major depressive disorder, recurrent severe without psychotic features (3) Anxiety, generalized: Code(s): F41.1 - Generalized anxiety disorder Category: Medical (4) Environmental allergies: Code(s): Z91.09 - Other allergy status, other than to drugs and biological substances Category: Medical (5) Chronic GERD: Code(s): K21.9 - Gastro-esophageal reflux disease without esophagitis Category: Medical (6) Asthma, moderate persistent: Code(s): J45.40 - Moderate persistent asthma, uncomplicated Category: Medical Qualifiers: Asthma complication type: uncomplicated Qualified Code(s): J45.40 - Moderate persistent asthma, uncomplicated (7) Difficulty sleeping: Code(s): G47.9 - Sleep disorder, unspecified Category: Medical (8) Stress at home: Code(s): F43.9 - Reaction to severe stress, unspecified Category: Social Hx Plan Chief Complaint The patient presents with anxiety and insomnia, requiring a urine drug screen for court. History The patient is a 54-year-old female presenting with anxiety and insomnia. Anxiety: - Stated she was experiencing high levels of anxiety due to ongoing legal issues with siblings. 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 - Recently experienced an anxiety attack that was uncontrollable and distressing. - Reported exacerbation of anxiety symptoms when discussing legal matters and family disputes. Insomnia: - Reported difficulty sleeping, describing an inability to achieve restful sleep in the past several days. - Sleep disturbances are characterized by waking after short sleep intervals, contributing to fatigue. - The onset of insomnia appears to correlate with increased stress levels from ongoing legal disputes. Medical History: - Asthma, managed with an inhaler. - Anxiety, previously treated with hydroxyzine. Medications: - Hydroxyzine for anxiety. - Inhaler for asthma (type unspecified). Social History: - Currently unemployed, previously lost a job due to ongoing legal disputes and stress. - Involved in ongoing legal battles with siblings, contributing to stress and anxiety. - No reported substance use despite familial allegations of drug abuse. Problem List - Anxiety - Insomnia - Asthma - GERD - Iron def [ has stopped taking Iron ] Patient Instructions - Take prescribed medications as directed and attend follow-up in three weeks. - Ensure completion of urine drug test for court documents. - Manage stress levels and attempt relaxation techniques to improve sleep quality. - start Buspar 10 mg, half to full a tab q 8 - Trazodon 50 mg , half to full tab at night as sleep aid f.u 3 wks Orders: Orders Drug Screen Urine Today E66.09 - Other obesity due to excess calories, F33.2 - Major depressive disorder, recurrent severe without psychotic features, F41.1 - Generalized anxiety disorder, F43.10 - Post-traumatic stress disorder, unspec ified, K21.9 - Gastro-esophageal reflux disease without esophagitis, Z68.32 - Body mass index [BMI] 32.0-32.9, adult, Z91.09 - Other allergy status, other than to drugs and biological substances Medications: New buspirone 10 mg PO BID PRN 30 tabs 0RF anxiety 30 days trazodone 50 mg PO DAILY 30 tabs 0RF
== END 2025-06-09 14:27 | disposition home or self-care (01) ==
LOC: HO.HMCC 12:39
PROVIDERS: PCP Internal Medicine; Visit Provider Internal Medicine
DX: F43.10 Post-traumatic stress disorder, unspecified (principal); F33.2 Major depressive disorder, recurrent severe without psychotic features; F41.1 Generalized anxiety disorder; Z91.09 Other allergy status, other than to drugs and biological substances; K21.9 Gastro-esophageal reflux disease without esophagitis; J45.40 Moderate persistent asthma, uncomplicated; G47.9 Sleep disorder, unspecified; F43.9 Reaction to severe stress, unspecified